=== PATIENT | female | born 1935 | race Caucasian/White ===

== ENCOUNTER → 2016-12-05 | Outpatient (CLI) | payer BC ==
[~2016-12-05] MED LIST: NAPR1TAB9 PO; NYSTOIN TOP; TERB1CRE TOP
--- NOTE | 2016-12-05 16:06 | MAMMOGRAPHY REPORT ---
BILATERAL DIGITAL SCREENING MAMMOGRAM WITH CAD: 12/05/2016 CLINICAL HISTORY: Routine screening. Patient has no complaints. TECHNIQUE: Bilateral CC and MLO views were obtained. Current study was also evaluated with a Comput er Aided Detection (CAD) system. COMPARISON: Comparison is made to exams dated: 12/02/2015 mammogram, 12/01/2014 mammogram, 11/28/2013 carlin mogram, 11/21/2012 mammogram, 11/21/2011 mammogram, and 11/17/2010 mammogram - [facility] nter. BREAST COMPOSITION: The tissue of both breasts is almost entirely fatty. FINDINGS: There is stable asymmetry in the subareolar left breast. Diffuse bilateral benign rim harshil cifications. No new suspicious mass, architectural distortion or cluster of microcalcifications is seen. IMPRESSION: ACR BI-RADS CATEGORY 1: NEGATIVE There is no mammographic evidence of malignancy. A 1 year screening mammogram is recommended. The p atient will receive written notification of the results. Approximately 10% of breast cancers are not detected with mammography. A negative mammographic repor t should not delay biopsy if a clinically suggestive mass is present. Nilsa Vu M.D. ay/:12/05/2016 15:18:55 Film Cleaner: Lisa Gautam M, [facility] letter sent: Normal 1/2 BI-RADS Code: ACR BI-RADS Category 1: Negative
== END | disposition home or self-care (01) ==
LOC: C.MAMM 08:11
PROVIDERS: ATTEND Internal Medicine
DX: Z12.31 Encounter for screening mammogram for malignant neoplasm of breast (principal)

== ENCOUNTER → 2016-12-21 | Outpatient (CLI) | payer BC ==
[2016-12-21 12:13] LABS: BASO % 0.6 %; BASO ABS # 0.04 K/uL (0-0.2); COMPLETE YES; EOS % 2.9 %; HEMATOCRIT 44.4 % (37-47); IG% 0.3 %; LYMPH % 17.1 %; LYMPH ABS # 1.13 K/uL (1.2-3.4); MEAN CELL VOLUME 93.9 fL (80-100); MEAN PLATELET VOLUME 11.2 fL (7.4-10.4); MONO % 7.7 %; NEUT % 71.4 %; PLATELET COUNT 239 K/uL (130-400); RED BLOOD COUNT 4.73 M/uL (4.2-5.4); WHITE BLOOD COUNT 6.61 K/uL (4.8-10.8)
[2016-12-21 12:26] LABS: ALT/SGPT 37 U/L (12-78); AST/SGOT 25 U/L (15-37); BLOOD UREA NITROGEN 16 mg/dl (7-18); BUN/CREATININE RATIO 21.3 (10-20); CARBON DIOXIDE 27 mmol/L (21-32); CHLORIDE 108 mmol/L (98-107); CHOLESTEROL 175 mg/dl (0-200); CREATININE 0.77 mg/dl (0.60-1.20); GLUCOSE 95 mg/dl (70-99); POTASSIUM 3.9 mmol/L (3.5-5.1); SODIUM 142 mmol/L (136-145); TRIGLYCERIDES 84 mg/dl (0-150); VERY LOW DENSITY LIPOPROT CALC 17 mg/dl
[2016-12-21 12:27] LABS: ALB/GLOB RATIO 0.9 (0.9-2); ALKALINE PHOSPHATASE 106 U/L (45-117); CHOLESTEROL/HDL RATIO 3.1; HDL CHOLESTEROL 57 mg/dl; LDL CHOLESTEROL CALCULATED 101 mg/dl
[2016-12-21 12:30] LABS: ESTIMATED AVERAGE GLUCOSE 123 mg/dl; HA1C FLAG Normal (Normal)
== END | disposition home or self-care (01) ==
LOC: C.LABBFT 10:22
PROVIDERS: ATTEND Internal Medicine
DX: Z00.00 Encounter for general adult medical examination without abnormal findings (principal); E55.9 Vitamin D deficiency, unspecified; E78.5 Hyperlipidemia, unspecified; R73.01 Impaired fasting glucose

== ENCOUNTER 2017-07-28 18:12 | Observation (INO) | payer BC ==
[~2017-07-28] VITALS: Ht 165.1 cm; Wt 77.6 kg
[2017-07-28] MEDS ORDERED: DEXAMETHASONE INJ 10 MG in SYRINGE 0 ML IV STA (18:27)
[2017-07-28] MEDS ORDERED: SODIUM CHLORIDE 0.9% 500ML 500 ML IV STA (18:27)
--- NOTE | 2017-07-28 18:32 | EMERGENCY ROOM VISIT NOTE ---
History Report prepared by Grupo: Franco Cullen Under the Supervision of: Dr. Leonard Roth M.D. First contact with patient: 18:17 Chief Complaint: FALL Stated Complaint: FELL AT HOME TWICE History of Present Illness The patient is a 81 year old female who presents to the Emergency Room with complaints of a fall that occurred prior to arrival. Her sons, who are present in the ED with her, state they found her sitting up next to her chair when they arrived. Per her sons, they state the same episode occurred two days ago. During the episode 2 days ago, she fell in the morning and was unable to get help for 8 hours. She describes both falls as falling off a chair because the cushion had slid off. There were no witnesses to either fall. Patient has associated symptoms of a sore throat, cough, nasal congestion, and a fever. She denies any shortness of breath, painful urination, back pain, neck pain, and abdominal pain. She adds that during the fall she did not hit her head. Her sons state that her baseline is not normally this weak. In addition, they state that she gave blood 3 days ago. She states she does not use a nebulizer or oxygen at home. She adds that she lives at home by herself. Source of History: patient, family Onset: Prior to arrival Position: other (Global) Associated Symptoms: No neck pain, No abdominal pain, No back pain Note: Patient has a sore throat, cough, nasal congestion, and a fever. She denies painful urination. Review of Systems See HPI for pertinent positives and negatives. A total of ten systems were reviewed and were otherwise negative. Past Medical & Surgical Medical Problems: (1) Acute bronchitis (2) section (3) Cholecystectomy (4) Fall (5) Kidney stone (6) UTI (urinary tract infection) (7) Weakness Family History No pertinent family history. Social History Smoking Status: Never Smoker Alcohol Use: none Marital Status: Occupation Status: retired Current/Historical Medications No Active Prescriptions or Reported Meds Allergies Coded Allergies: No Known Allergies (Unverified , 07/28/17) Physical Exam Vital Signs Date Time Temp Pulse Resp B/P (MAP) Pulse Ox O2 Delivery O2 Flow Rate FiO2 07/28/17 23:03 77 07/28/17 21:29 76 18 122/64 97 Room Air 07/28/17 20:27 7 18 133/63 98 07/28/17 19:18 75 07/28/17 19:16 105 20 134/74 99 Room Air 07/28/17 18:13 37.0 78 18 135/71 95 Physical Exam GENERAL: Awake, alert, fatigue-appearing, in no distress HENT: Dry cracked mucous membranes. Normocephalic, atraumatic. Oropharynx otherwise unremarkable. EYES: Normal conjunctiva. Sclera non-icteric. NECK: Supple. No nuchal rigidity. FROM. No JVD. RESPIRATORY: Scattered wheezes and rhonchi. CARDIAC: Regular rate, normal rhythm. Extremities warm and well perfused. Pulses equal. ABDOMEN: Soft, non-distended. No tenderness to palpation. No rebound or guarding. No masses. RECTAL: Deferred. MUSCULOSKELETAL: Chest examination reveals no tenderness. The back is symmetrical on inspection without obvious abnormality. There is no CVA tenderness to palpation. No joint edema. LOWER EXTREMITIES: Calves are equal size bilaterally and non-tender. No edema. No discoloration. NEURO: 4/4 strength in all extremities. Normal sensorium. No sensory or motor deficits noted. SKIN: No rash or jaundice noted. Medical Decision & Procedures ER Provider Diagnostic Interpretation: Radiology results as stated below per my review and radiologist interpretation: HEAD WITHOUT CONTRAST (CT) CT DOSE: 1003.45 mGycm HISTORY: Trauma. Mental status change. LUCERO fall TECHNIQUE: Multiaxial CT images of the head were performed without the use of intravenous contrast. A dose lowering technique was utilized adhering to the principles of ALARA. Comparison: 10/16/2012 Findings: Trace fluid within the right maxillary sinus. Sinuses otherwise are clear. Mastoids are clear. Moderate sclerosis moderate right mastoid air cells considered chronic. No acute posttraumatic bony abnormality. Findings of moderate atrophy involving the cerebellar as well as cerebral hemispheres. Mild compensatory ventricular prominence. No acute intracranial hemorrhage. The calvarium and skull base are intact. The ventricles and sulci are within normal limits. There is no mass, hematoma, midline shift, or acute infarct. Impression: Chronic and age-related change. No acute process. The above report was generated using voice recognition software. It may contain grammatical, syntax or spelling errors. Electronically signed by: Red Diallo M.D. 07/28/2017 7:42 PM PELVIS 1 OR 2 VIEW ROUTINE CLINICAL HISTORY: pain fall trauma COMPARISON: None. DISCUSSION: The bones and joint spaces appear intact. There is no evidence of fracture, dislocation or bony disease. There is no evidence for soft tissue swelling. IMPRESSION: Negative study. The above report was generated using voice recognition software. It may contain grammatical, syntax or spelling errors. Electronically signed by: Red Diallo M.D. 07/28/2017 6:48 PM CHEST ONE VIEW PORTABLE CLINICAL HISTORY: sob dyspnea COMPARISON STUDY: 10/16/2012 FINDINGS: The bones soft tissues and hemidiaphragms are normal. The cardiomediastinal silhouette is normal. The lungs are clear. The pulmonary vasculature is normal. IMPRESSION: Negative chest. The above report was generated using voice recognition software. It may contain grammatical, syntax or spelling errors. Electronically signed by: Red Diallo M.D. 07/28/2017 6:47 PM Laboratory Results 07/28/17 18:50 Red Blood Count 4.14, Mean Corpuscular Volume 92.5, Mean Corpuscular Hemoglobin 30.7, Mean Corpuscular Hemoglobin Concent 33.2, Mean Platelet Volume 10.6, Neutrophils (%) (Auto) 74.5, Lymphocytes (%) (Auto) 12.7, Monocytes (%) (Auto) 10.8, Eosinophils (%) (Auto) 1.6, Basophils (%) (Auto) 0.2, Neutrophils # (Auto ) 3.65, Lymphocytes # (Auto) 0.62, Monocytes # (Auto) 0.53, Eosinophils # (Auto ) 0.08, Basophils # (Auto) 0.01 07/28/17 18:50 Test 07/28/17 18:50 07/28/17 19:00 White Blood Count 4.90 K/uL (4.8-10.8) Red Blood Count 4.14 M/uL (4.2-5.4) Hemoglobin 12.7 g/dL (12.0-16.0) Hematocrit 38.3 % (37-47) Mean Corpuscular Volume 92.5 fL (80-100) Mean Corpuscular Hemoglobin 30.7 pg (25-34) Mean Corpuscular Hemoglobin Concent 33.2 g/dl (32-36) Platelet Count 166 K/uL (130-400) Mean Platelet Volume 10.6 fL (7.4-10.4) Neutrophils (%) (Auto) 74.5 % Lymphocytes (%) (Auto) 12.7 % Monocytes (%) (Auto) 10.8 % Eosinophils (%) (Auto) 1.6 % Basophils (%) (Auto) 0.2 % Neutrophils # (Auto) 3.65 K/uL (1.4-6.5) Lymphocytes # (Auto) 0.62 K/uL (1.2-3.4) Monocytes # (Auto) 0.53 K/uL (0.11-0.59) Eosinophils # (Auto) 0.08 K/uL (0-0.5) Basophils # (Auto) 0.01 K/uL (0-0.2) RDW Standard Deviation 45.8 fL (36.4-46.3) RDW Coefficient of Variation 13.5 % (11.5-14.5) Immature Granulocyte % (Auto) 0.2 % Immature Granulocyte # (Auto) 0.01 K/uL (0.00-0.02) Anion Gap 4.0 mmol/L (3-11) Est Creatinine Clear Calc Drug Dose 52.5 ml/min Estimated GFR () 80.7 Estimated GFR (Non- 69.6 BUN/Creatinine Ratio 19.8 (10-20) Calcium Level 8.6 mg/dl (8.5-10.1) Phosphorus Level 2.6 mg/dl (2.5-4.9) Magnesium Level 2.1 mg/dl (1.8-2.4) Total Bilirubin 0.4 mg/dl (0.2-1) Direct Bilirubin 0.1 mg/dl (0-0.2) Aspartate Amino Transf (AST/SGOT) 83 U/L (15-37) Alanine Aminotransferase (ALT/SGPT) 49 U/L (12-78) Alkaline Phosphatase 73 U/L (45-117) Troponin I < 0.015 ng/ml (0-0.045) Pro-B-Type Natriuretic Peptide 130 pg/ml (0-1800) Total Protein 6.6 gm/dl (6.4-8.2) Albumin 3.1 gm/dl (3.4-5.0) Lipase 135 U/L (73-393) Urine Color DK YELLOW Urine Appearance CLEAR (CLEAR) Urine pH 5.0 (4.5-7.5) Urine Specific [place] 1.030 (1.000-1.030) Urine Protein NEG (NEG) Urine Glucose (UA) TRACE (NEG) Urine Ketones TRACE (NEG) Urine Occult Blood TRACE (NEG) Urine Nitrite POS (NEG) Urine Bilirubin NEG (NEG) Urine Urobilinogen NEG (NEG) Urine Leukocyte Esterase TRACE (NEG) Urine WBC (Auto) 5-10 /hpf (0-5) Urine RBC (Auto) 0-4 /hpf (0-4) Urine Hyaline Casts (Auto) 1-5 /lpf (0-5) Urine Epithelial Cells (Auto) >30 /lpf (0-5) Urine Bacteria (Auto) 4+ (NEG) Urine Renal Epithelial Cells 5-10 /lpf (0-5) Urine Crystals CALCIUM OXALATE (NONE Urine Pathogenic Casts /lpf (0) Laboratory results reviewed by me Medications Administered Medications (Trade) Dose Ordered Sig/Haja Route Start Time Stop Time Status Last Admin Dose Admin Sodium Chloride 500 ml @ 999 mls/hr Q31M STAT IV 07/28/17 18:27 07/28/17 18:57 DC 07/28/17 19:04 999 MLS/HR Dexamethasone Sodium Phosphate (Dexamethasone Inj Pf) 10 mg STK-MED ONCE .ROUTE 07/28/17 19:01 07/28/17 19:02 DC 07/28/17 19:04 10 MG Sodium Chloride 1,000 ml @ 999 mls/hr Q1H1M STAT IV 07/28/17 20:02 07/28/17 21:02 DC 07/28/17 20:21 999 MLS/HR Levofloxacin (Levaquin / D5W) 750 mg NOW STAT IV 07/28/17 20:02 07/28/17 20:05 DC 07/28/17 20:20 750 MG Albuterol/ Ipratropium (Duoneb) 3 ml NOW STAT INH 07/28/17 20:02 07/28/17 20:05 DC 07/28/17 20:20 3 ML ECG Indication: other (Fall) Rate (beats per minute): 73 Rhythm: normal sinus Findings: no acute ischemic change, other (Normal axis. ) Change: no significant change ED Course 1817: The patient was evaluated in room C10. A complete history and physical exam was performed. 2200: Upon reexamination, the patient will be further evaluated. I discussed the test results and treatment plan with her. The patient will be evaluated for further management. Medical Decision I reviewed the patient's past medical history, medications, and the nursing notes as described above. Differential Diagnosis: Pneumonia, Bronchitis, UTI, Dehydration, Electrolyte abnormalities, ICH. The patient is an 81 y/o woman who presents to the ED with worsening generalized weakness for past 2 days with associated episodes of sliding out of her chair unable to get up per HPI. Arrives today after second episode of being found down. On arrival patient is severely fatigued required 3 person assist to pivot from wheelchair to stretcher. In NAD, AFVSS. CT head negative. CXR and pelvic XR unremarkable. UA positive for UTI. Labs otherwise unremarkable. Give patient's profound weakness in setting of UTI will admit. Case d/w [facility] hospitalist, who will admit the patient for further management. Medication Reconcilliation Current Medication List: was personally reviewed by me Blood Pressure Screening Patient's blood pressure: Normal blood pressure Blood pressure disposition: Did not require urgent referral Impression Primary Impression: UTI (urinary tract infection) Additional Impressions: Dehydration Generalized weakness Scribe Attestation The scribe's documentation has been prepared under my direction and personally reviewed by me in its entirety. I confirm that the note above accurately reflects all work, treatment, procedures, and medical decision making performed by me. Departure Information Dispostion Being Evaluated By Hospitalist Prescriptions No Active Prescriptions or Reported Meds Referrals Krysta Perez M.D. (PCP) Forms HOME CARE DOCUMENTATION FORM, IMPORTANT VISIT INFORMATION Patient Instructions My [facility] Problem Qualifiers
--- NOTE | 2017-07-28 18:49 | DIAGNOSTIC IMAGING REPORT ---
PELVIS 1 OR 2 VIEW ROUTINE CLINICAL HISTORY: pain fall trauma COMPARISON: None. DISCUSSION: The bones and joint spaces appear intact. There is no evidence of fracture, dislocation or bony disease. There is no evidence for soft tissue swelling. IMPRESSION: Negative study. The above report was generated using voice recognition software. It may contain grammatical, syntax or spelling errors. Electronically signed by: Red Diallo M.D. 07/28/2017 6:48 PM Dictated Date/Time: 07/28/2017 6:48 PM
--- NOTE | 2017-07-28 18:49 | DIAGNOSTIC IMAGING REPORT ---
CHEST ONE VIEW PORTABLE CLINICAL HISTORY: sob dyspnea COMPARISON STUDY: 10/16/2012 FINDINGS: The bones soft tissues and hemidiaphragms are normal. The cardiomediastinal silhouette is normal. The lungs are clear. The pulmonary vasculature is normal. IMPRESSION: Negative chest. The above report was generated using voice recognition software. It may contain grammatical, syntax or spelling errors. Electronically signed by: Red Diallo M.D. 07/28/2017 6:47 PM Dictated Date/Time: 07/28/2017 6:47 PM
[2017-07-28] MEDS ORDERED: DEXAMETHASONE **PF** INJ 10 MG/ML VIAL ONE (19:01)
[2017-07-28 19:03] LABS: BASO % 0.2 %; BASO ABS # 0.01 K/uL (0-0.2); EOS % 1.6 %; EOS ABS # 0.08 K/uL (0-0.5); HEMATOCRIT 38.3 % (37-47); HEMOGLOBIN 12.7 g/dL (12.0-16.0); IG# 0.01 K/uL (0.00-0.02); LYMPH % 12.7 %; LYMPH ABS # 0.62 K/uL (1.2-3.4); MEAN CELL VOLUME 92.5 fL (80-100); MEAN CORPUSCULAR HEMOGLOBIN 30.7 pg (25-34); MEAN CORPUSCULAR HGB CONC 33.2 g/dl (32-36); MEAN PLATELET VOLUME 10.6 fL (7.4-10.4); MONO % 10.8 %; MONO ABS # 0.53 K/uL (0.11-0.59); NEUT % 74.5 %; NEUT ABS # 3.65 K/uL (1.4-6.5); PLATELET COUNT 166 K/uL (130-400); RED CELL DISTRIBUTION WIDTH CV 13.5 % (11.5-14.5); RED CELL DISTRIBUTION WIDTH SD 45.8 fL (36.4-46.3)
[2017-07-28 19:24] LABS: ALBUMIN 3.1 gm/dl (3.4-5.0); ALT/SGPT 49 U/L (12-78); AST/SGOT 83 U/L (15-37); BLOOD UREA NITROGEN 16 mg/dl (7-18); CALCIUM 8.6 mg/dl (8.5-10.1); CARBON DIOXIDE 28 mmol/L (21-32); GLUCOSE 115 mg/dl (70-99); LIPASE 135 U/L (73-393); POTASSIUM 3.7 mmol/L (3.5-5.1); SODIUM 139 mmol/L (136-145)
[2017-07-28 19:27] LABS: ALKALINE PHOSPHATASE 73 U/L (45-117); PHOSPHORUS 2.6 mg/dl (2.5-4.9); TOTAL PROTEIN 6.6 gm/dl (6.4-8.2)
--- NOTE | 2017-07-28 19:43 | DIAGNOSTIC IMAGING REPORT ---
HEAD WITHOUT CONTRAST (CT) CT DOSE: 1003.45 mGycm HISTORY: Trauma. Mental status change. LUCERO fall TECHNIQUE: Multiaxial CT images of the head were performed without the use of intravenous contrast. A dose lowering technique was utilized adhering to the principles of ALARA. Comparison: 10/16/2012 Findings: Trace fluid within the right maxillary sinus. Sinuses otherwise are clear. Mastoids are clear. Moderate sclerosis moderate right mastoid air cells considered chronic. No acute posttraumatic bony abnormality. Findings of moderate atrophy involving the cerebellar as well as cerebral hemispheres. Mild compensatory ventricular prominence. No acute intracranial hemorrhage. The calvarium and skull base are intact. The ventricles and sulci are within normal limits. There is no mass, hematoma, midline shift, or acute infarct. Impression: Chronic and age-related change. No acute process. The above report was generated using voice recognition software. It may contain grammatical, syntax or spelling errors. Electronically signed by: Red Diallo M.D. 07/28/2017 7:42 PM Dictated Date/Time: 07/28/2017 7:41 PM
[2017-07-28] MEDS ORDERED: ALBUT/IPRATROP 3MG/0.5MG NEB 3 ML VIAL INH STA (20:02)
[2017-07-28] MEDS ORDERED: LEVAQUIN 750MG / 150ML D5W IV STA (20:02)
[2017-07-28] MEDS ORDERED: SODIUM CHLORIDE 0.9% 1000ML 1,000 ML IV STA (20:02)
[2017-07-28] MEDS ORDERED: MAGNESIUM HYDROXIDE SUSP 30 ML UDC PO PRN (23:15)
[2017-07-28] MEDS ORDERED: ONDANSETRON INJ 2 MG/ML 2 ML VIAL IV PRN (23:15)
[2017-07-28] MEDS ORDERED: POLYETHYLENE (MIRALAX) 17 GM PACK PO PRN (23:15)
[2017-07-28] MEDS ORDERED: ALUMINUM/MAGNESIUM/SIMETH (MAALOX MAX) 30 ML UDC PO PRN (23:15)
[2017-07-28] MEDS ORDERED: ACETAMINOPHEN 325 MG TAB PO PRN (23:15)
--- NOTE | 2017-07-28 23:43 | History and Physical ---
History & Physical Date & Time of Service: Jul 28, 2017 at 23:43 Chief Complaint: Fell At Home Twice Primary Care Physician: Krysta Perez M.D. History of Present Illness Source: patient, hospital records 81 yo F A few dayago felt progressively weakness, while using the bathroom patient slid off commode. , no head injury.slept all night in bed. this afternoon , slid off couch, no known injuries.called Dr. Perez (PCP_ talked to PA on Monday) advised to come in to day. lives at home by herself. She also reports a few days of dry cough , sore throat, runny nose, nasal congestion, makeda earache. has been taking advil. She reports subjective fever,c hills, no SOB, Chest pain, n/ v abdominal pain, diarrhea, no urinary symptoms. In ED, patient came in significantly fatigued. She arrived afebrile, normotensive. Scattered wheeze and rhonchi on exam. Ct Head was negative. CXR , pelvic XR unremarkable. UA was positive for UTI. She was given 1500 cc NS, Dexamethasone 10 mg, placed on Levaquin. and DuoNeb. Past Medical/Surgical History Medical Problems: (1) section Status: Resolved (2) Cholecystectomy Status: Resolved (3) Kidney stone Status: Resolved Family History no relevant family hx Social History Smoking Status: Never Smoker Alcohol Use: none Drug Use: none Marital Status: Housing status: lives with family Occupational Status: retired Immunizations History of Influenza Vaccine: Unknown History of Tetanus Vaccine?: Unknown History of Pneumococcal: Unknown History of Hepatitis B Vaccine: Unknown Multi-Drug Resistant Organisms History of MDRO: No Allergies Coded Allergies: No Known Allergies (Unverified , 07/28/17) Home Medications No Active Prescriptions or Reported Meds Review of Systems Constitutional: No fever, No chills Respiratory: + cough, + wheezing, No shortness of breath Cardiovascular: No chest pain, No palpitations Abdomen: No pain Genitourinary - Female: + urinary frequency, + urinary urgency, + urinary incontinence Physical Exam Vital Signs Date Time Temp Pulse Resp B/P (MAP) Pulse Ox O2 Delivery O2 Flow Rate FiO2 07/28/17 23:23 74 20 110/56 94 Room Air 07/28/17 23:03 77 07/28/17 21:29 76 18 122/64 97 Room Air 07/28/17 20:27 7 18 133/63 98 07/28/17 19:18 75 07/28/17 19:16 105 20 134/74 99 Room Air 07/28/17 18:13 37.0 78 18 135/71 95 Diagnostics Laboratory Results Results Past 24 Hours Test 07/28/17 18:50 07/28/17 19:00 Range/Units White Blood Count 4.90 4.8-10.8 K/uL Red Blood Count 4.14 4.2-5.4 M/uL Hemoglobin 12.7 12.0-16.0 g/dL Hematocrit 38.3 37-47 % Mean Corpuscular Volume 92.5 80-100 fL Mean Corpuscular Hemoglobin 30.7 25-34 pg Mean Corpuscular Hemoglobin Concent 33.2 32-36 g/dl Platelet Count 166 130-400 K/uL Mean Platelet Volume 10.6 7.4-10.4 fL Neutrophils (%) (Auto) 74.5 % Lymphocytes (%) (Auto) 12.7 % Monocytes (%) (Auto) 10.8 % Eosinophils (%) (Auto) 1.6 % Basophils (%) (Auto) 0.2 % Neutrophils # (Auto) 3.65 1.4-6.5 K/uL Lymphocytes # (Auto) 0.62 1.2-3.4 K/uL Monocytes # (Auto) 0.53 0.11-0.59 K/uL Eosinophils # (Auto) 0.08 0-0.5 K/uL Basophils # (Auto) 0.01 0-0.2 K/uL RDW Standard Deviation 45.8 36.4-46.3 fL RDW Coefficient of Variation 13.5 11.5-14.5 % Immature Granulocyte % (Auto) 0.2 % Immature Granulocyte # (Auto) 0.01 0.00-0.02 K/uL Sodium Level 139 136-145 mmol/L Potassium Level 3.7 3.5-5.1 mmol/L Chloride Level 107 98-107 mmol/L Carbon Dioxide Level 28 21-32 mmol/L Anion Gap 4.0 3-11 mmol/L Blood Urea Nitrogen 16 7-18 mg/dl Creatinine 0.80 0.60-1.20 mg/dl Est Creatinine Clear Calc Drug Dose 52.5 ml/min Estimated GFR () 80.7 Estimated GFR (Non- 69.6 BUN/Creatinine Ratio 19.8 10-20 Random Glucose 115 70-99 mg/dl Calcium Level 8.6 8.5-10.1 mg/dl Phosphorus Level 2.6 2.5-4.9 mg/dl Magnesium Level 2.1 1.8-2.4 mg/dl Total Bilirubin 0.4 0.2-1 mg/dl Direct Bilirubin 0.1 0-0.2 mg/dl Aspartate Amino Transf (AST/SGOT) 83 15-37 U/L Alanine Aminotransferase (ALT/SGPT) 49 12-78 U/L Alkaline Phosphatase 73 45-117 U/L Troponin I < 0.015 0-0.045 ng/ml Pro-B-Type Natriuretic Peptide 130 0-1800 pg/ml Total Protein 6.6 6.4-8.2 gm/dl Albumin 3.1 3.4-5.0 gm/dl Lipase 135 73-393 U/L Urine Color DK YELLOW Urine Appearance CLEAR CLEAR Urine pH 5.0 4.5-7.5 Urine Specific [place] 1.030 1.000-1.030 Urine Protein NEG NEG Urine Glucose (UA) TRACE NEG Urine Ketones TRACE NEG Urine Occult Blood TRACE NEG Urine Nitrite POS NEG Urine Bilirubin NEG NEG Urine Urobilinogen NEG NEG Urine Leukocyte Esterase TRACE NEG Urine WBC (Auto) 5-10 0-5 /hpf Urine RBC (Auto) 0-4 0-4 /hpf Urine Hyaline Casts (Auto) 1-5 0-5 /lpf Urine Epithelial Cells (Auto) >30 0-5 /lpf Urine Bacteria (Auto) 4+ NEG Urine Renal Epithelial Cells 5-10 0-5 /lpf Urine Crystals CALCIUM OXALATE NONE PRSENT Urine Pathogenic Casts 0 /lpf Microbiology Results 07/28/17 Urine Culture, Received Pending Diagnostic Radiology ] CHEST ONE VIEW PORTABLE CLINICAL HISTORY: sob dyspnea COMPARISON STUDY: 10/16/2012 FINDINGS: The bones soft tissues and hemidiaphragms are normal. The cardiomediastinal silhouette is normal. The lungs are clear. The pulmonary vasculature is normal. IMPRESSION: Negative chest. ] PELVIS 1 OR 2 VIEW ROUTINE CLINICAL HISTORY: pain fall trauma COMPARISON: None. DISCUSSION: The bones and joint spaces appear intact. There is no evidence of fracture, dislocation or bony disease. There is no evidence for soft tissue swelling. IMPRESSION: Negative study. HEAD WITHOUT CONTRAST (CT) CT DOSE: 1003.45 mGycm HISTORY: Trauma. Mental status change. LUCERO fall TECHNIQUE: Multiaxial CT images of the head were performed without the use of intravenous contrast. A dose lowering technique was utilized adhering to the principles of ALARA. Comparison: 10/16/2012 Findings: Trace fluid within the right maxillary sinus. Sinuses otherwise are clear. Mastoids are clear. Moderate sclerosis moderate right mastoid air cells considered chronic. No acute posttraumatic bony abnormality. Findings of moderate atrophy involving the cerebellar as well as cerebral hemispheres. Mild compensatory ventricular prominence. No acute intracranial hemorrhage. The calvarium and skull base are intact. The ventricles and sulci are within normal limits. There is no mass, hematoma, midline shift, or acute infarct. Impression: Chronic and age-related change. No acute process. Impression Assessment and Plan 81 y o F presenting w/ progressive generalized weakness and Fall x2 found to have UTI and Bronchitis , currently on Levaquin, Rocephin Weakness , H/o Fall - likely secondary to dehydration in the setting of UTI/ Bronchitis -no reported injuries -Negative CXR, negative CT head, neg, Pelvic Xray - IV NS maintenance fluids 100 mls/hr UTI - UA positive - Start Rocephin, Levaquin - F/u Urine cx Bronchitis - Duoneb - Start Rocephin, Levaquin as above DVT Prophylaxis SCD Attending addendum: I have physically seen this patient, have supervised the medical residents activities, and agree with the H&P unless as otherwise noted. Assessment and Plan: Progressive generalized weakness, status post fall 2/UTI/bronchitis/dehydration -- Admitted to medical surgical floor Normal saline at 100 ML's per hour Ceftriaxone 1 g IV daily Levofloxacin 500 mg IV every 24 hours Follow urine culture and sensitivity report Duonebs every 4 hours while awake and every 2 hours when necessary. Gen. deconditioning-- Consult PT/OT/social service technician Level of Care Med/Surg Advanced Directives Existing Advance Directive: No Existing Living Will: No Existing Power of Army Manager: No Resuscitation Status FULL RESUSCITATION VTE Prophylaxis VTE Risk Assessment Done? Y/N: Yes Risk Level: Low Given or contraindicated: SCD's Resident Tracking Resident Involvement: Resident Care Provided Care Provided: Adult Hospital Medicine
[2017-07-29] VITALS (9 sets, daily range): BP systolic 111–130; BP diastolic 63–75; PULSE 67–73; TEMP 36.6–36.9; O2SAT 93–97; Ht 165.1 cm; Wt 77.6 kg
[2017-07-29] MEDS: SODIUM CHLORIDE 0.9% 1000ML 1,000 ML IV SCH ×3 (00:42→20:14)
[2017-07-29] MEDS: CEFTRIAXONE SOD INJ 1 GM in DEXTROSE 5% ADD-VANTAGE 50ML 50 ML IV SCH (00:43)
[2017-07-29] MEDS ORDERED: IV FLUIDS COMPLETED PRN (00:45)
[2017-07-29 07:26] LABS: HEMOGLOBIN 11.6 g/dL (12.0-16.0); IG# 0.01 K/uL (0.00-0.02); LYMPH % 12.1 %; LYMPH ABS # 0.41 K/uL (1.2-3.4); MEAN CELL VOLUME 91.4 fL (80-100); MEAN CORPUSCULAR HEMOGLOBIN 30.3 pg (25-34); MEAN CORPUSCULAR HGB CONC 33.1 g/dl (32-36); MEAN PLATELET VOLUME 10.6 fL (7.4-10.4); MONO % 3.2 %; MONO ABS # 0.11 K/uL (0.11-0.59); NEUT % 84.4 %; NEUT ABS # 2.87 K/uL (1.4-6.5); PLATELET COUNT 153 K/uL (130-400); RED CELL DISTRIBUTION WIDTH CV 13.3 % (11.5-14.5); RED CELL DISTRIBUTION WIDTH SD 44.1 fL (36.4-46.3)
[2017-07-29] MEDS: ALBUT/IPRATROP 3MG/0.5MG NEB 3 ML VIAL INH SCH ×4 (07:28→19:37)
[2017-07-29 07:55] LABS: CALCIUM 7.8 mg/dl (8.5-10.1); CREATININE 0.52 mg/dl (0.60-1.20); POTASSIUM 4.1 mmol/L (3.5-5.1)
[2017-07-29] MEDS ORDERED: COUGH DROP (SUGAR FREE) LOZ 24 LOZ/1 BOX ONE (08:04)
--- NOTE | 2017-07-29 10:20 | Family Medicine Progress Note ---
Progress Note Date of Service Jul 29, 2017. Subjective Pt evaluation today including: conversation w/ patient, physical exam, chart review, lab review Pain: denies any pain PO Intake: good Voiding: no voiding problems 81-year-old female presented to the ER after she had sustained a fall after she slid off a cushion on her couch. She denies any episodes of dizziness, chest pain, palpitations prior to fall. Denies any head injury after the fall. Complains of generalized weakness and fatigue which had increased over the last few weeks. Also complains of having congestion and rhinorrhea and other upper respiratory tract symptoms. Denies any fevers or chills, shortness of breath or wheezing. Denies any abdominal pain, nausea, vomiting but states that she has urinary incontinence and some dysuria. Constitutional: No fever, No chills Eyes: No worsening of vision ENT: No hearing loss Respiratory: No cough, No sputum Cardiovascular: No chest pain Abdomen: No pain, No nausea, No vomiting Musculoskeletal: No joint pain Female : No dysuria, No urinary frequency Neurologic: No memory loss Psychiatric: No depression symptoms Medications Current Inpatient Medications Medications (Trade) Dose Ordered Sig/Haja Route Start Time Stop Time Status Last Admin Dose Admin Acetaminophen (Tylenol Tab) 650 mg Q4H PRN PO 07/28/17 23:15 08/27/17 23:14 Al Hydrox/Mg Hydrox/Simethicone (Maalox Max Susp) 15 ml Q4H PRN PO 07/28/17 23:15 08/27/17 23:14 Magnesium Hydroxide (Milk Of Magnesia Susp) 30 ml Q6H PRN PO 07/28/17 23:15 08/27/17 23:14 Polyethylene (Miralax Powder Packet) 17 gm DAILY PRN PO 07/28/17 23:15 08/27/17 23:14 Ondansetron HCl (Zofran Inj) 4 mg Q6H PRN IV 07/28/17 23:15 08/27/17 23:14 Albuterol/ Ipratropium (Duoneb) 3 ml QIDR INH 07/29/17 08:00 08/28/17 07:59 07/29/17 07:28 3 ML Sodium Chloride 1,000 ml @ 100 mls/hr Q10H IV 07/29/17 00:30 08/28/17 00:29 07/29/17 00:42 100 MLS/HR Levofloxacin 500 mg/Prmx 150 ml @ 100 mls/hr Q24H IV 07/29/17 20:00 08/03/17 21:29 Ceftriaxone Sodium 1 gm/ Dextrose 50 ml @ 100 mls/hr Q24H IV 07/29/17 00:00 08/03/17 00:00 07/29/17 00:43 100 MLS/HR Miscellaneous (Iv Fluids Completed) 1 ea PRN PRN N/A 07/29/17 00:45 07/29/18 00:44 Objective Vital Signs Date Time Temp Pulse Resp B/P (MAP) Pulse Ox O2 Delivery O2 Flow Rate FiO2 07/29/17 08:00 94 Room Air 07/29/17 07:28 68 18 94 Room Air 07/29/17 07:21 36.9 71 18 130/75 (93) 94 Room Air 07/29/17 00:00 36.6 72 18 120/75 Room Air 07/28/17 23:23 74 20 110/56 94 Room Air 07/28/17 23:03 77 07/28/17 21:29 76 18 122/64 97 Room Air 07/28/17 20:27 7 18 133/63 98 07/28/17 19:18 75 07/28/17 19:16 105 20 134/74 99 Room Air 07/28/17 18:13 37.0 78 18 135/71 95 Physical Exam General Appearance: WD/WN, no apparent distress Eyes: normal inspection ENT: hearing grossly normal Neck: supple Respiratory/Chest: chest non-tender, lungs clear, normal breath sounds, no respiratory distress, no accessory muscle use Cardiovascular: regular rate, rhythm Abdomen: normal bowel sounds, non tender, soft Extremities: no pedal edema Neurologic/Psychiatric: alert, normal mood/affect, oriented x 3 Laboratory Results 07/29/17 07:13 Red Blood Count 3.83, Mean Corpuscular Volume 91.4, Mean Corpuscular Hemoglobin 30.3, Mean Corpuscular Hemoglobin Concent 33.1, Mean Platelet Volume 10.6, Neutrophils (%) (Auto) 84.4, Lymphocytes (%) (Auto) 12.1, Monocytes (%) (Auto) 3.2, Eosinophils (%) (Auto) 0.0, Basophils (%) (Auto) 0.0, Neutrophils # (Auto) 2.87, Lymphocytes # (Auto) 0.41, Monocytes # (Auto) 0.11, Eosinophils # (Auto) 0.00, Basophils # (Auto) 0.00 07/29/17 07:13 Test 07/28/17 18:50 07/28/17 19:00 07/29/17 07:13 Phosphorus Level 2.6 mg/dl (2.5-4.9) Magnesium Level 2.1 mg/dl (1.8-2.4) Total Bilirubin 0.4 mg/dl (0.2-1) Direct Bilirubin 0.1 mg/dl (0-0.2) Aspartate Amino Transf (AST/SGOT) 83 U/L (15-37) Alanine Aminotransferase (ALT/SGPT) 49 U/L (12-78) Alkaline Phosphatase 73 U/L (45-117) Troponin I < 0.015 ng/ml (0-0.045) Pro-B-Type Natriuretic Peptide 130 pg/ml (0-1800) Total Protein 6.6 gm/dl (6.4-8.2) Albumin 3.1 gm/dl (3.4-5.0) Lipase 135 U/L (73-393) Urine Color DK YELLOW Urine Appearance CLEAR (CLEAR) Urine pH 5.0 (4.5-7.5) Urine Specific [place] 1.030 (1.000-1.030) Urine Protein NEG (NEG) Urine Glucose (UA) TRACE (NEG) Urine Ketones TRACE (NEG) Urine Occult Blood TRACE (NEG) Urine Nitrite POS (NEG) Urine Bilirubin NEG (NEG) Urine Urobilinogen NEG (NEG) Urine Leukocyte Esterase TRACE (NEG) Urine WBC (Auto) 5-10 /hpf (0-5) Urine RBC (Auto) 0-4 /hpf (0-4) Urine Hyaline Casts (Auto) 1-5 /lpf (0-5) Urine Epithelial Cells (Auto) >30 /lpf (0-5) Urine Bacteria (Auto) 4+ (NEG) Urine Renal Epithelial Cells 5-10 /lpf (0-5) Urine Crystals CALCIUM OXALATE (NONE Urine Pathogenic Casts /lpf (0) White Blood Count 3.40 K/uL (4.8-10.8) Red Blood Count 3.83 M/uL (4.2-5.4) Hemoglobin 11.6 g/dL (12.0-16.0) Hematocrit 35.0 % (37-47) Mean Corpuscular Volume 91.4 fL (80-100) Mean Corpuscular Hemoglobin 30.3 pg (25-34) Mean Corpuscular Hemoglobin Concent 33.1 g/dl (32-36) Platelet Count 153 K/uL (130-400) Mean Platelet Volume 10.6 fL (7.4-10.4) Neutrophils (%) (Auto) 84.4 % Lymphocytes (%) (Auto) 12.1 % Monocytes (%) (Auto) 3.2 % Eosinophils (%) (Auto) 0.0 % Basophils (%) (Auto) 0.0 % Neutrophils # (Auto) 2.87 K/uL (1.4-6.5) Lymphocytes # (Auto) 0.41 K/uL (1.2-3.4) Monocytes # (Auto) 0.11 K/uL (0.11-0.59) Eosinophils # (Auto) 0.00 K/uL (0-0.5) Basophils # (Auto) 0.00 K/uL (0-0.2) RDW Standard Deviation 44.1 fL (36.4-46.3) RDW Coefficient of Variation 13.3 % (11.5-14.5) Immature Granulocyte % (Auto) 0.3 % Immature Granulocyte # (Auto) 0.01 K/uL (0.00-0.02) Anion Gap 7.0 mmol/L (3-11) Est Creatinine Clear Calc Drug Dose 88.9 ml/min Estimated GFR () 104.6 Estimated GFR (Non- 90.2 BUN/Creatinine Ratio 25.6 (10-20) Calcium Level 7.8 mg/dl (8.5-10.1) Assessment and Plan 81-year-old female with generalized weakness presented to the ER after she sustained a mechanical fall. Fall: - Likely secondary to deconditioning/generalized weakness - Chest x-ray negative - Head CT negative for any acute changes, pelvic x-ray negative - PT/OT ordered UTI: - UA positive for small leuk esterase, blood and positive for nitrite and bacteria - Urine culture preliminary positive for Escherichia coli - Ceftriaxone IV DVT Prophylaxis SCD Full code Disposition: Currently in MedSurg, might require inpatient rehabilitation pending evaluation by PT Resident Physician Supervision Note: I interviewed and examined the patient. Discussed with Dr. Schultz and agree with findings and plan as documented in the note. Any exceptions or clarifications are listed here: None Documented By: Ray Mukherjee feeling a bit better worried about being home alone, willing to go to rehab initially notes that she [place] from [facility] but then after discusions about possibly rehabbing at [facility] if needed she notes tat she's allergic to cats and they have cats there. notes she'd be willing to go to [facility] vitals ntoed nad breathing unlabored no pallor or icterus UTI - likely cause of weakness. rocephin pending ID&S fall/weakness - likely to need rehab. PT/OT eval, soc services eval. sounds that she would prefer [facility] due to lack of cats as compared to [facility] which is across from her house. Resident Tracking Resident Involvement: Resident Care Provided Care Provided: Adult Hospital Medicine
[2017-07-29] MEDS ORDERED: LEVOFLOXACIN / D5W 500 MG in PREMIXED IN D5W 150 ML IV SCH (20:00)
[2017-07-30] VITALS (7 sets, daily range): BP systolic 154–179; BP diastolic 74–90; PULSE 61–81; TEMP 36.7–36.9; O2SAT 95–98
[2017-07-30] MEDS: CEFTRIAXONE SOD INJ 1 GM in DEXTROSE 5% ADD-VANTAGE 50ML 50 ML IV SCH ×2 (00:41→23:49)
[2017-07-30] MEDS: SODIUM CHLORIDE 0.9% 1000ML 1,000 ML IV SCH (06:21)
[2017-07-30] MEDS: ALBUT/IPRATROP 3MG/0.5MG NEB 3 ML VIAL INH SCH ×4 (07:06→20:03)
[2017-07-30] MEDS ORDERED: IBUPROFEN 200 MG TAB PO STA (07:33)
--- NOTE | 2017-07-30 12:33 | Family Medicine Progress Note ---
Progress Note Date of Service Jul 30, 2017. Subjective Pt evaluation today including: conversation w/ patient, physical exam, chart review, lab review Pain: denies pain PO Intake: good Voiding: incontinence 81-year-old female presented to the ER after she had sustained a fall after she slid off a cushion on her couch. She denies any episodes of dizziness, chest pain, palpitations prior to fall. Denies any head injury after the fall. Appears to be more confused today and states that she wants to go home to take care of some insurance issues as it is the end of the year. Complains of congestion and rhinorrhea. Denies any fevers or chills, shortness of breath or wheezing. Denies any abdominal pain, dysuria or frequency but has incontinence Constitutional: No fever, No chills Eyes: No worsening of vision ENT: + nasal symptoms (congestion), No hearing loss Respiratory: No cough, No sputum Cardiovascular: No chest pain Abdomen: No pain, No nausea, No vomiting, No diarrhea Musculoskeletal: No joint pain Female : + incontinence, No dysuria, No urinary frequency Neurologic: No memory loss Heme: No abnormal bleeding/bruising Medications Current Inpatient Medications Medications (Trade) Dose Ordered Sig/Haja Route Start Time Stop Time Status Last Admin Dose Admin Acetaminophen (Tylenol Tab) 650 mg Q4H PRN PO 07/28/17 23:15 08/27/17 23:14 Al Hydrox/Mg Hydrox/Simethicone (Maalox Max Susp) 15 ml Q4H PRN PO 07/28/17 23:15 08/27/17 23:14 Magnesium Hydroxide (Milk Of Magnesia Susp) 30 ml Q6H PRN PO 07/28/17 23:15 08/27/17 23:14 Polyethylene (Miralax Powder Packet) 17 gm DAILY PRN PO 07/28/17 23:15 08/27/17 23:14 Ondansetron HCl (Zofran Inj) 4 mg Q6H PRN IV 07/28/17 23:15 08/27/17 23:14 Albuterol/ Ipratropium (Duoneb) 3 ml QIDR INH 07/29/17 08:00 08/28/17 07:59 07/30/17 11:05 3 ML Sodium Chloride 1,000 ml @ 100 mls/hr Q10H IV 07/29/17 00:30 1/29/18 00:29 07/30/17 06:21 100 MLS/HR Ceftriaxone Sodium 1 gm/ Dextrose 50 ml @ 100 mls/hr Q24H IV 07/29/17 00:00 08/03/17 00:00 07/30/17 00:41 100 MLS/HR Miscellaneous (Iv Fluids Completed) 1 ea PRN PRN N/A 07/29/17 00:45 07/29/18 00:44 Objective Vital Signs Date Time Temp Pulse Resp B/P (MAP) Pulse Ox O2 Delivery O2 Flow Rate FiO2 07/30/17 11:05 61 16 98 Room Air 07/30/17 07:40 36.7 73 20 179/90 (119) 97 Room Air 07/30/17 07:35 Room Air 07/30/17 00:00 Room Air 07/29/17 23:18 36.6 73 18 121/63 (82) 95 Room Air 07/29/17 16:00 97 Room Air 07/29/17 15:23 67 16 97 Room Air 07/29/17 14:54 36.8 68 18 111/68 (82) 94 Physical Exam General Appearance: WD/WN, no apparent distress Eyes: normal inspection Neck: supple Respiratory/Chest: chest non-tender, lungs clear, normal breath sounds, no respiratory distress, no accessory muscle use, + pertinent finding (I Dr. Sauceda called [facility]) Abdomen: normal bowel sounds, soft Extremities: normal range of motion Neurologic/Psychiatric: alert, normal mood/affect, oriented x 3 Skin: normal color Assessment and Plan 81-year-old female with generalized weakness presented to the ER after she sustained a mechanical fall. Found to have a UTI growing pansensitive Escherichia coli. She appears to have waxing and waning episodes of confusion which could be likely secondary to being in the hospital Spoke to her son who is going to be coming over which might help with reorienting her. Fall: - Likely secondary to deconditioning/generalized weakness - Chest x-ray negative - Head CT negative for any acute changes, pelvic x-ray negative - PT recommended inpatient rehabilitation/SNF upon discharge UTI: - Urine culture positive for pansensitive Escherichia coli - Ceftriaxone IV daily -Continue IV hydration Confusion: - DVT Prophylaxis SCD Full code Disposition: [facility] Resident Tracking Resident Involvement: Resident Care Provided Care Provided: Adult [facility] Medicine
[2017-07-30] MEDS ORDERED: SODIUM CHLORIDE 0.65% NA SOLN 45 ML (OCEAN) PRN (13:00)
[2017-07-30] MEDS ORDERED: NURSING VERBAL MED ORDER ONE (15:45)
[2017-07-31] VITALS (7 sets, daily range): BP systolic 138–176; BP diastolic 85–107; PULSE 70–81; TEMP 37; O2SAT 93–100
[2017-07-31] MEDS: ALBUT/IPRATROP 3MG/0.5MG NEB 3 ML VIAL INH SCH ×4 (07:23→20:00)
[2017-07-31 08:37] LABS: BASO % 0.5 %; BASO ABS # 0.02 K/uL (0-0.2); EOS % 2.6 %; HEMATOCRIT 36.6 % (37-47); HEMOGLOBIN 12.2 g/dL (12.0-16.0); IG# 0.01 K/uL (0.00-0.02); LYMPH % 26.7 %; LYMPH ABS # 1.04 K/uL (1.2-3.4); MEAN CELL VOLUME 92.4 fL (80-100); MEAN CORPUSCULAR HEMOGLOBIN 30.8 pg (25-34); MEAN CORPUSCULAR HGB CONC 33.3 g/dl (32-36); MEAN PLATELET VOLUME 10.6 fL (7.4-10.4); MONO % 8.2 %; MONO ABS # 0.32 K/uL (0.11-0.59); NEUT % 61.7 %; NEUT ABS # 2.41 K/uL (1.4-6.5); PLATELET COUNT 189 K/uL (130-400); RED CELL DISTRIBUTION WIDTH CV 13.6 % (11.5-14.5)
[2017-07-31 08:54] LABS: CALCIUM 8.7 mg/dl (8.5-10.1); CREATININE 0.76 mg/dl (0.60-1.20); POTASSIUM 3.5 mmol/L (3.5-5.1)
--- NOTE | 2017-07-31 13:31 | Hospitalist Progress Note ---
Hospitalist Progress Note Date of Service Jul 31, 2017. (Angelica Kauffman ., FELICITA) Subjective Pt evaluation today including: conversation w/ patient, physical exam, chart review, lab review, review of inpatient medication list Voiding: no voiding problems Ms. Marrero reports some non productive cough but denies sob. She is somewhat delusional in her speech, accusing nursing of denying her things like her mail from home and reporting that a man with a large cat was outside her doorway just to irritate her because she hates cats. ROS Constitutional: no chills, aches, sweats or fever Respiratory: see HPI Cardiac: no chest pain, palpitations, edema, orthopnea or lightheadedness GI: no abdominal pain, nausea, vomiting, diarrhea or constipation : no dysuria or hesitancy Extremities: no joint pain or weakness Skin: no rash All Other Systems: Reviewed and Negative (Angelica Kauffman CRNP) Medications Medications Administered Medications (Trade) Dose Ordered Sig/Haja Route Start Time Stop Time Status Last Admin Dose Admin Sodium Chloride 500 ml @ 999 mls/hr Q31M STAT IV 07/28/17 18:27 07/28/17 18:57 DC 07/28/17 19:04 999 MLS/HR Dexamethasone Sodium Phosphate (Dexamethasone Inj Pf) 10 mg STK-MED ONCE .ROUTE 07/28/17 19:01 07/28/17 19:02 DC 07/28/17 19:04 10 MG Sodium Chloride 1,000 ml @ 999 mls/hr Q1H1M STAT IV 07/28/17 20:02 07/28/17 21:02 DC 07/28/17 20:21 999 MLS/HR Levofloxacin (Levaquin / D5W) 750 mg NOW STAT IV 07/28/17 20:02 07/28/17 20:05 DC 07/28/17 20:20 750 MG Albuterol/ Ipratropium (Duoneb) 3 ml NOW STAT INH 07/28/17 20:02 07/28/17 20:05 DC 07/28/17 20:20 3 ML Albuterol/ Ipratropium (Duoneb) 3 ml QIDR INH 07/29/17 08:00 08/28/17 07:59 07/31/17 11:14 3 ML Sodium Chloride 1,000 ml @ 100 mls/hr Q10H IV 07/29/17 00:30 07/30/17 15:47 DC 07/30/17 06:21 100 MLS/HR Ceftriaxone Sodium 1 gm/ Dextrose 50 ml @ 100 mls/hr Q24H IV 07/29/17 00:00 08/03/17 00:00 07/30/17 23:49 100 MLS/HR Menthol (Nice Jevon) 24 jevon STK-MED ONCE .ROUTE 07/29/17 08:04 07/29/17 08:05 DC 07/29/17 08:16 24 JEVON Ibuprofen (Advil Tab) 200 mg NOW STAT PO 07/30/17 07:33 07/30/17 07:50 DC 07/30/17 08:37 200 MG (Angelica Kauffman CRNP) Objective Vital Signs Date Time Temp Pulse Resp B/P (MAP) Pulse Ox O2 Delivery O2 Flow Rate FiO2 07/31/17 11:15 77 16 95 Room Air 07/31/17 07:26 Room Air 07/31/17 07:23 81 16 94 Room Air 07/31/17 07:09 37.0 81 18 168/107 (127) 94 Room Air 176/89 (118) 07/31/17 00:00 Room Air 07/30/17 23:35 36.9 74 18 167/87 (113) 96 Room Air 07/30/17 20:03 75 16 95 Room Air 07/30/17 16:00 95 Room Air 07/30/17 15:02 81 16 95 Room Air 07/30/17 14:50 36.8 79 18 154/74 (100) 96 Room Air (Angelica Kauffman CRNP) Physical Exam Notes: General: no distress Eyes: normal inspection, PERLL Respiratory: chest non tender, coarse, expiratory wheezing bilateral bases, no respiratory distress, no accessory muscle use Cardiac: regular rate and rhythm, no rub or gallop, no murmur, no edema, no jvd GI/: active bowel sounds, no abd pain or tenderness, soft, non distended Extremities: normal range of motion, normal strength, non tender Neuro/Psych: alert and oriented x 3, normal mood and affect Skin: normal color, dry (Angelica Kauffman CRNP) Laboratory Results Last 24 Hours Test 07/31/17 08:29 White Blood Count 3.90 K/uL Red Blood Count 3.96 M/uL Hemoglobin 12.2 g/dL Hematocrit 36.6 % Mean Corpuscular Volume 92.4 fL Mean Corpuscular Hemoglobin 30.8 pg Mean Corpuscular Hemoglobin Concent 33.3 g/dl Platelet Count 189 K/uL Mean Platelet Volume 10.6 fL Neutrophils (%) (Auto) 61.7 % Lymphocytes (%) (Auto) 26.7 % Monocytes (%) (Auto) 8.2 % Eosinophils (%) (Auto) 2.6 % Basophils (%) (Auto) 0.5 % Neutrophils # (Auto) 2.41 K/uL Lymphocytes # (Auto) 1.04 K/uL Monocytes # (Auto) 0.32 K/uL Eosinophils # (Auto) 0.10 K/uL Basophils # (Auto) 0.02 K/uL RDW Standard Deviation 46.0 fL RDW Coefficient of Variation 13.6 % Immature Granulocyte % (Auto) 0.3 % Immature Granulocyte # (Auto) 0.01 K/uL Sodium Level 138 mmol/L Potassium Level 3.5 mmol/L Chloride Level 105 mmol/L Carbon Dioxide Level 25 mmol/L Anion Gap 8.0 mmol/L Blood Urea Nitrogen 9 mg/dl Creatinine 0.76 mg/dl Est Creatinine Clear Calc Drug Dose 60.8 ml/min Estimated GFR () 85.9 Estimated GFR (Non- 74.1 BUN/Creatinine Ratio 12.4 Random Glucose 157 mg/dl Calcium Level 8.7 mg/dl (Angelica Kauffman CRNP) Assessment and Plan 81-year-old female here for falls at home and UTI Fall: - Likely secondary to deconditioning/generalized weakness, UTI - Chest x-ray negative - Head CT negative for any acute changes, pelvic x-ray negative - PT recommended inpatient rehabilitation/SNF upon discharge - awaiting placement UTI: - Urine culture positive for pansensitive Escherichia coli - Ceftriaxone IV daily - last dose 1/3 for 5 day regimen - IVF discontinued as patient taking po URI - continue nebs DVT Prophylaxis SCD Full code Disposition: in patient rehab when approved. (Angelica Kauffman CRNP) I agree with FELICITA assessment and plan and have seen and examined pt myself Resting comfortably in bed Disoriented VSS Labs reviewed Admitted with UTI, key sens Ecoli Cont rocephin at this time Will likely need SNF on DC (Dmitry Malin D.O.)
[2017-08-01] VITALS (7 sets, daily range): BP systolic 135–169; BP diastolic 75–83; PULSE 74–91; TEMP 36.9–37.2; O2SAT 93–96
[2017-08-01] MEDS: CEFTRIAXONE SOD INJ 1 GM in DEXTROSE 5% ADD-VANTAGE 50ML 50 ML IV SCH ×2 (00:03→23:45)
[2017-08-01] MEDS: ALBUT/IPRATROP 3MG/0.5MG NEB 3 ML VIAL INH SCH ×4 (07:25→19:08)
--- NOTE | 2017-08-01 13:03 | Hospitalist Progress Note ---
Hospitalist Progress Note Date of Service Aug 01, 2017. (Angelica Kauffman ., FELICITA) Subjective Pt evaluation today including: conversation w/ patient, physical exam, chart review, review of inpatient medication list Voiding: no voiding problems Ms. Marrero is seated in a chair at bedside and states she feels good today. She is a bit difficult to converse with as she continues to be a bit delusional in her understanding of what is going on around her. ROS Constitutional: no chills, aches, sweats or fever Respiratory: no sob,cough, sputum, or wheezing Cardiac: no chest pain, palpitations, edema, orthopnea or lightheadedness GI: no abdominal pain, nausea, vomiting, diarrhea or constipation : no dysuria or hesitancy Extremities: no joint pain or weakness Skin: no rash All other systems reviewed and negative (Angelica Kauffman ., FELICITA) Medications Medications Administered Medications (Trade) Dose Ordered Sig/Haja Route Start Time Stop Time Status Last Admin Dose Admin Sodium Chloride 500 ml @ 999 mls/hr Q31M STAT IV 07/28/17 18:27 07/28/17 18:57 DC 07/28/17 19:04 999 MLS/HR Dexamethasone Sodium Phosphate (Dexamethasone Inj Pf) 10 mg STK-MED ONCE .ROUTE 07/28/17 19:01 07/28/17 19:02 DC 07/28/17 19:04 10 MG Sodium Chloride 1,000 ml @ 999 mls/hr Q1H1M STAT IV 07/28/17 20:02 07/28/17 21:02 DC 07/28/17 20:21 999 MLS/HR Levofloxacin (Levaquin / D5W) 750 mg NOW STAT IV 07/28/17 20:02 07/28/17 20:05 DC 07/28/17 20:20 750 MG Albuterol/ Ipratropium (Duoneb) 3 ml NOW STAT INH 07/28/17 20:02 07/28/17 20:05 DC 07/28/17 20:20 3 ML Albuterol/ Ipratropium (Duoneb) 3 ml QIDR INH 07/29/17 08:00 08/28/17 07:59 08/01/17 10:58 3 ML Sodium Chloride 1,000 ml @ 100 mls/hr Q10H IV 07/29/17 00:30 07/30/17 15:47 DC 07/30/17 06:21 100 MLS/HR Ceftriaxone Sodium 1 gm/ Dextrose 50 ml @ 100 mls/hr Q24H IV 07/29/17 00:00 08/03/17 00:00 08/01/17 00:03 100 MLS/HR Menthol (Nice Jevon) 24 jevon STK-MED ONCE .ROUTE 07/29/17 08:04 07/29/17 08:05 DC 07/29/17 08:16 24 JEVON Ibuprofen (Advil Tab) 200 mg NOW STAT PO 07/30/17 07:33 07/30/17 07:50 DC 07/30/17 08:37 200 MG (Angelica Kauffman CRNP) Objective Vital Signs Date Time Temp Pulse Resp B/P (MAP) Pulse Ox O2 Delivery O2 Flow Rate FiO2 08/01/17 11:00 78 16 96 Room Air 08/01/17 07:39 37.2 75 16 156/83 (107) 94 Room Air 08/01/17 07:27 74 16 96 Room Air 08/01/17 07:10 Room Air 08/01/17 04:00 Room Air 08/01/17 00:06 36.9 76 18 169/75 (106) 93 Room Air 08/01/17 00:00 Room Air 07/31/17 20:36 70 16 98 Room Air 07/31/17 16:00 100 Room Air 07/31/17 15:23 37.0 80 18 138/85 (102) 100 07/31/17 15:07 77 16 93 Room Air (Angelica Kauffman CRNP) Physical Exam Notes: General: no distress Eyes: normal inspection, PERLL Respiratory: chest non tender, clear to auscultation, normal breath sounds, no respiratory distress, no accessory muscle use Cardiac: regular rate and rhythm, no rub or gallop, no murmur, no edema, no jvd GI/: active bowel sounds, no abd pain or tenderness, soft, non distended Extremities: normal range of motion, normal strength, non tender Neuro/Psych: alert and oriented x 3, confused, normal mood and affect Skin: normal color, dry (Angelica Kauffman CRNP) Assessment and Plan 81-year-old female here for falls at home and UTI Fall: - Likely secondary to deconditioning/generalized weakness, UTI - Chest x-ray negative - Head CT negative for any acute changes, pelvic x-ray negative - PT recommended inpatient rehabilitation/SNF upon discharge - awaiting placement UTI: - Urine culture positive for pansensitive Escherichia coli - Ceftriaxone IV daily - last dose 1/3 for 5 day regimen - IVF discontinued as patient taking po URI - continue nebs DVT Prophylaxis SCD Full code Disposition: in patient rehab when approved. (Angelica Kauffman ., FELICITA) I agree with ESTHETICIAN SPA assessment and plan and have seen and examined pt myself Resting comfortably in bed Disoriented VSS Labs reviewed Admitted with UTI, key sens Ecoli Cont rocephin at this time, last day of tx 08/02/17 Awaiting rehab placement (Dmitry Malin, D.O.)
[2017-08-02] VITALS (8 sets, daily range): BP systolic 135–147; BP diastolic 76–83; PULSE 76–91; TEMP 36.6–37; O2SAT 93–97
[2017-08-02] MEDS: ALBUT/IPRATROP 3MG/0.5MG NEB 3 ML VIAL INH SCH ×4 (07:50→19:20)
--- NOTE | 2017-08-02 14:25 | Hospitalist Progress Note ---
Hospitalist Progress Note Date of Service Aug 02, 2017. (Angelica Kauffman ., FELICITA) Subjective Pt evaluation today including: conversation w/ patient, physical exam, chart review, lab review, review of inpatient medication list Voiding: no voiding problems Ms. Marrero reports her cough is improving. She is not short of breath. She is eating and drinking well. ROS Constitutional: no chills, aches, sweats or fever Respiratory: see HPI Cardiac: no chest pain, palpitations, edema, orthopnea or lightheadedness GI: no abdominal pain, nausea, vomiting, diarrhea or constipation : no dysuria or hesitancy Extremities: no joint pain or weakness Skin: no rash All other systems reviewed and negative (Angelica Kauffman CRNP) Medications Medications Administered Medications (Trade) Dose Ordered Sig/Haja Route Start Time Stop Time Status Last Admin Dose Admin Sodium Chloride 500 ml @ 999 mls/hr Q31M STAT IV 07/28/17 18:27 07/28/17 18:57 DC 07/28/17 19:04 999 MLS/HR Dexamethasone Sodium Phosphate (Dexamethasone Inj Pf) 10 mg STK-MED ONCE .ROUTE 07/28/17 19:01 07/28/17 19:02 DC 07/28/17 19:04 10 MG Sodium Chloride 1,000 ml @ 999 mls/hr Q1H1M STAT IV 07/28/17 20:02 07/28/17 21:02 DC 07/28/17 20:21 999 MLS/HR Levofloxacin (Levaquin / D5W) 750 mg NOW STAT IV 07/28/17 20:02 07/28/17 20:05 DC 07/28/17 20:20 750 MG Albuterol/ Ipratropium (Duoneb) 3 ml NOW STAT INH 07/28/17 20:02 07/28/17 20:05 DC 07/28/17 20:20 3 ML Albuterol/ Ipratropium (Duoneb) 3 ml QIDR INH 07/29/17 08:00 08/28/17 07:59 08/02/17 11:15 3 ML Sodium Chloride 1,000 ml @ 100 mls/hr Q10H IV 07/29/17 00:30 07/30/17 15:47 DC 07/30/17 06:21 100 MLS/HR Ceftriaxone Sodium 1 gm/ Dextrose 50 ml @ 100 mls/hr Q24H IV 07/29/17 00:00 08/03/17 00:00 08/01/17 23:45 100 MLS/HR Menthol (Nice Jevno) 24 jevon STK-MED ONCE .ROUTE 07/29/17 08:04 07/29/17 08:05 DC 07/29/17 08:16 24 JEVON Ibuprofen (Advil Tab) 200 mg NOW STAT PO 07/30/17 07:33 07/30/17 07:50 DC 07/30/17 08:37 200 MG (Angelica Kauffman CRNP) Objective Vital Signs Date Time Temp Pulse Resp B/P (MAP) Pulse Ox O2 Delivery O2 Flow Rate FiO2 08/02/17 11:15 81 16 97 Room Air 08/02/17 08:05 36.7 76 16 137/78 (97) 96 Room Air 08/02/17 07:50 81 16 95 Room Air 08/02/17 07:25 Room Air 08/02/17 00:27 36.7 79 18 135/76 (95) 93 Room Air 08/01/17 23:30 Room Air 08/01/17 19:08 77 16 95 Room Air 08/01/17 16:00 Room Air 08/01/17 15:10 74 16 96 Room Air 08/01/17 14:55 37.0 91 16 135/80 (98) 93 Room Air (Angelica Kauffman CRNP) Physical Exam Notes: General: no distress Eyes: normal inspection, PERLL Respiratory: chest non tender, mild expiratory wheezes bilaterally, no respiratory distress, no accessory muscle use Cardiac: regular rate and rhythm, no rub or gallop, no murmur, no edema, no jvd GI/: active bowel sounds, no abd pain or tenderness, soft, non distended Extremities: normal range of motion, normal strength, non tender Neuro/Psych: alert and oriented x 3, some confusion, normal mood and affect Skin: normal color, dry (Angelica Kauffman CRNP) Laboratory Results 07/31/17 08:29 Red Blood Count 3.96, Mean Corpuscular Volume 92.4, Mean Corpuscular Hemoglobin 30.8, Mean Corpuscular Hemoglobin Concent 33.3, Mean Platelet Volume 10.6, Neutrophils (%) (Auto) 61.7, Lymphocytes (%) (Auto) 26.7, Monocytes (%) (Auto) 8.2, Eosinophils (%) (Auto) 2.6, Basophils (%) (Auto) 0.5, Neutrophils # (Auto) 2.41, Lymphocytes # (Auto) 1.04, Monocytes # (Auto) 0.32, Eosinophils # (Auto) 0.10, Basophils # (Auto) 0.02 07/31/17 08:29 Test 07/28/17 18:50 07/28/17 19:00 07/31/17 08:29 Phosphorus Level 2.6 mg/dl (2.5-4.9) Magnesium Level 2.1 mg/dl (1.8-2.4) Total Bilirubin 0.4 mg/dl (0.2-1) Direct Bilirubin 0.1 mg/dl (0-0.2) Aspartate Amino Transf (AST/SGOT) 83 U/L (15-37) Alanine Aminotransferase (ALT/SGPT) 49 U/L (12-78) Alkaline Phosphatase 73 U/L (45-117) Troponin I < 0.015 ng/ml (0-0.045) Pro-B-Type Natriuretic Peptide 130 pg/ml (0-1800) Total Protein 6.6 gm/dl (6.4-8.2) Albumin 3.1 gm/dl (3.4-5.0) Lipase 135 U/L (73-393) Urine Color DK YELLOW Urine Appearance CLEAR (CLEAR) Urine pH 5.0 (4.5-7.5) Urine Specific Crucible 1.030 (1.000-1.030) Urine Protein NEG (NEG) Urine Glucose (UA) TRACE (NEG) Urine Ketones TRACE (NEG) Urine Occult Blood TRACE (NEG) Urine Nitrite POS (NEG) Urine Bilirubin NEG (NEG) Urine Urobilinogen NEG (NEG) Urine Leukocyte Esterase TRACE (NEG) Urine WBC (Auto) 5-10 /hpf (0-5) Urine RBC (Auto) 0-4 /hpf (0-4) Urine Hyaline Casts (Auto) 1-5 /lpf (0-5) Urine Epithelial Cells (Auto) >30 /lpf (0-5) Urine Bacteria (Auto) 4+ (NEG) Urine Renal Epithelial Cells 5-10 /lpf (0-5) Urine Crystals CALCIUM OXALATE (NONE Urine Pathogenic Casts /lpf (0) White Blood Count 3.90 K/uL (4.8-10.8) Red Blood Count 3.96 M/uL (4.2-5.4) Hemoglobin 12.2 g/dL (12.0-16.0) Hematocrit 36.6 % (37-47) Mean Corpuscular Volume 92.4 fL (80-100) Mean Corpuscular Hemoglobin 30.8 pg (25-34) Mean Corpuscular Hemoglobin Concent 33.3 g/dl (32-36) Platelet Count 189 K/uL (130-400) Mean Platelet Volume 10.6 fL (7.4-10.4) Neutrophils (%) (Auto) 61.7 % Lymphocytes (%) (Auto) 26.7 % Monocytes (%) (Auto) 8.2 % Eosinophils (%) (Auto) 2.6 % Basophils (%) (Auto) 0.5 % Neutrophils # (Auto) 2.41 K/uL (1.4-6.5) Lymphocytes # (Auto) 1.04 K/uL (1.2-3.4) Monocytes # (Auto) 0.32 K/uL (0.11-0.59) Eosinophils # (Auto) 0.10 K/uL (0-0.5) Basophils # (Auto) 0.02 K/uL (0-0.2) RDW Standard Deviation 46.0 fL (36.4-46.3) RDW Coefficient of Variation 13.6 % (11.5-14.5) Immature Granulocyte % (Auto) 0.3 % Immature Granulocyte # (Auto) 0.01 K/uL (0.00-0.02) Anion Gap 8.0 mmol/L (3-11) Est Creatinine Clear Calc Drug Dose 60.8 ml/min Estimated GFR () 85.9 Estimated GFR (Non- 74.1 BUN/Creatinine Ratio 12.4 (10-20) Calcium Level 8.7 mg/dl (8.5-10.1) Date/Time Source Procedure Growth Status 07/28/17 19:00 Urine,Catheterized Urine Culture - Final Escherichia Coli Complete (Angelica Kauffman, FELICITA) Assessment and Plan 81-year-old female here for falls at home and UTI Fall: - Likely secondary to deconditioning/generalized weakness, UTI - Chest x-ray negative - Head CT negative for any acute changes, pelvic x-ray negative - PT recommended inpatient rehabilitation/SNF upon discharge - awaiting placement, likely hs UTI: - Urine culture positive for pansensitive Escherichia coli - Ceftriaxone IV daily - last dose 1/3 for 5 day regimen URI - continue nebs, cough improving DVT Prophylaxis SCD Full code Disposition: inpatient rehab when approved. (Angelica Kauffman ., ATTORNEY) I agree with ATTORNEY assessment and plan and have seen and examined pt myself Resting comfortably in bed Disoriented and confused intermittently VSS Labs reviewed Admitted with UTI, key sens Ecoli Cont rocephin at this time, last day of tx 08/02/17 Awaiting rehab placement (Dmitry Malin, D.O.)
[2017-08-02] MEDS: CEFTRIAXONE SOD INJ 1 GM in DEXTROSE 5% ADD-VANTAGE 50ML 50 ML IV SCH (23:14)
[2017-08-03] MEDS: ALBUT/IPRATROP 3MG/0.5MG NEB 3 ML VIAL INH SCH (07:16)
[2017-08-03 07:17] VITALS: PULSE 77; O2SAT 94
[2017-08-03 07:47] VITALS: BP 128/80; PULSE 74; TEMP 37.1; O2SAT 96
[2017-08-03] MEDS ORDERED: ALBUT/IPRATROP 3MG/0.5MG NEB 3 ML VIAL INH PRN (09:15)
[2017-08-03] MEDS ORDERED: ALBUT/IPRATROP 3MG/0.5MG NEB 3 ML VIAL INH SCH (12:00)
--- NOTE | 2017-08-03 13:13 | Hospitalist Progress Note ---
Hospitalist Progress Note Date of Service Aug 03, 2017. Subjective Pt evaluation today including: conversation w/ patient, physical exam, chart review, lab review, review of inpatient medication list Voiding: no voiding problems Ms. Marrero is doing well. Continues to have mild cough, diarrhea has slowed down. Spent extensive time talking with son and patient about discharge planning. Patient was denied [facility] however her therapy recommendations and my own view of her abilities while here make sending her home by herself appear risky. She will stay tonight while her son attempts to find a suitable support system for her return home such as home health aids ROS Constitutional: no chills, aches, sweats or fever Respiratory: see HPI Cardiac: no chest pain, palpitations, edema, orthopnea or lightheadedness GI: no abdominal pain, nausea, vomiting, diarrhea or constipation : no dysuria or hesitancy Extremities: no joint pain or weakness Skin: no rash All other systems reviewed and negative Objective Vital Signs Date Time Temp Pulse Resp B/P (MAP) Pulse Ox O2 Delivery O2 Flow Rate FiO2 08/03/17 08:00 Room Air 08/03/17 07:47 37.1 74 16 128/80 (96) 96 Room Air 08/03/17 07:17 77 16 94 Room Air 08/03/17 00:00 Room Air 08/02/17 23:47 37.0 79 16 147/83 (104) 93 Room Air 08/02/17 19:22 82 16 97 Room Air 08/02/17 16:00 36.6 89 18 138/82 (100) 93 Room Air 08/02/17 15:40 Room Air 08/02/17 15:00 91 16 96 Room Air Physical Exam Notes: General: no distress Eyes: normal inspection, PERLL Respiratory: chest non tender, clear to auscultation, normal breath sounds, no respiratory distress, no accessory muscle use Cardiac: regular rate and rhythm, no rub or gallop, no murmur, no edema, no jvd GI/: active bowel sounds, no abd pain or tenderness, soft, non distended Extremities: normal range of motion, normal strength, non tender Neuro/Psych: alert and oriented x 3, normal mood and affect Skin: normal color, dry Assessment and Plan 81-year-old female here for falls at home and UTI Fall: - Likely secondary to deconditioning/generalized weakness, UTI - Chest x-ray negative - Head CT negative for any acute changes, pelvic x-ray negative - PT recommended inpatient rehabilitation/SNF upon discharge - awaiting placement, denied [facility] UTI: - Urine culture positive for pansensitive Escherichia coli - Ceftriaxone IV daily - last dose 1/3 for 5 day regimen URI - continue nebs, cough improving DVT Prophylaxis SCD Full code Disposition: denied hs, and snf, son discussing options with CM for safe return home Continued [facility] stay due to: home environment unsafe for pt Discharge planning: longterm facility
[2017-08-03 16:01] VITALS: O2SAT 96
[2017-08-03] MEDS ORDERED: COUGH DROP (SUGAR FREE) LOZ 24 LOZ/1 BOX PO PRN (17:15)
[2017-08-03] MEDS ORDERED: NURSING DECISION MEDICATION ORDER SCH (17:15)
[2017-08-04 00:05] VITALS: O2SAT 96
[2017-08-04 05:21] VITALS: BP 137/82; PULSE 72; TEMP 36.7; O2SAT 95
[2017-08-04 08:14] VITALS: BP 142/75; PULSE 69; TEMP 37.2; O2SAT 92
[2017-08-04 15:39] VITALS: BP 145/87; PULSE 81; TEMP 36.9; O2SAT 92
[2017-08-04 16:05] VITALS: O2SAT 96
--- NOTE | 2017-08-04 16:20 | Progress Note ---
Subjective Date of Service: Aug 04, 2017. Subjective Pt evaluation today including: conversation w/ patient, conversation w/ family , physical exam, chart review, lab review, review of studies, review of inpatient medication list Resting comfortably in bed at this time Wanting to go home No other concerns at this time Problem List Medical Problems: (1) Dehydration Status: Acute (2) Generalized weakness Status: Acute Review of Systems Constitutional: No fever, No chills, No sweats, No weight loss, No weakness Eyes: No worsening of vision, No eye pain, No redness, No discharge ENT: No hearing loss, No unusual epistaxis, No nasal symptoms, No sore throat Respiratory: No cough, No sputum, No wheezing, No shortness of breath, No dyspnea on exertion Cardiac: No chest pain, No orthopnea, No PND, No edema, No claudication Abdomen: No pain, No nausea, No vomiting, No diarrhea, No constipation Musculoskeletal: No joint pain, No muscle pain, No swelling, No calf pain Female : No dysuria, No urinary frequency, No hematuria, No incontinence Neurologic: No memory loss, No paralysis, No weakness, No numbness/tingling Psychiatric: No depression symptoms, No anhedonism, No anxiety Endo: No fatigue, No excessive thirst Skin: No rash, No itch Objective Vital Signs Date Time Temp Pulse Resp B/P (MAP) Pulse Ox O2 Delivery O2 Flow Rate FiO2 08/04/17 15:39 36.9 81 18 145/87 (106) 92 Room Air 08/04/17 08:14 37.2 69 20 142/75 (97) 92 Nasal Cannula 08/04/17 08:00 Room Air 08/04/17 05:21 36.7 72 18 137/82 (100) 95 Room Air 08/04/17 00:05 96 Room Air Physical Exam General Appearance: WD/WN, no apparent distress Eyes: normal inspection, PERRL, EOMI, sclerae normal Neck: supple, no adenopathy, thyroid normal, no JVD Respiratory/Chest: chest non-tender, lungs clear, normal breath sounds, no respiratory distress Cardiovascular: regular rate, rhythm, no edema, no gallop, no JVD Abdomen: normal bowel sounds, non tender, soft, no organomegaly Neurologic/Psychiatric: no motor/sensory deficits, alert, normal mood/affect, oriented x 3 Skin: normal color, warm/dry, no rash Lymphatic: no adenopathy Assessment and Plan 81-year-old female here for falls at home and UTI Fall: - Likely secondary to deconditioning/generalized weakness, UTI - Chest x-ray negative - Head CT negative for any acute changes, pelvic x-ray negative - PT recommended inpatient rehabilitation/SNF upon discharge - awaiting placement, denied [facility] UTI: - Urine culture positive for pansensitive Escherichia coli - Ceftriaxone IV daily - last dose 1/3 for 5 day regimen URI - continue nebs, cough improving DVT Prophylaxis SCD Full code Disposition: denied hs, and snf, son discussing options with CM for safe return home Continued [facility] stay due to: home environment unsafe for pt Discharge planning: retirement facility
[2017-08-05 00:10] VITALS: BP 140/75; PULSE 76; TEMP 37.2; O2SAT 96
[2017-08-05 07:37] VITALS: BP 130/73; PULSE 69; TEMP 37.5; O2SAT 91
[2017-08-05 10:08] VITALS: TEMP 37
--- NOTE | 2017-08-05 10:57 | DIAGNOSTIC IMAGING REPORT ---
CHEST 2 VIEWS ROUTINE CLINICAL HISTORY: Weakness. Possible pneumonia. Inability to stand. COMPARISON STUDY: 07/28/2017 FINDINGS: The cardiac and mediastinal contours remain stable. There is no focal pulmonary consolidation. There is mild elevation of the interstitium. While this may be secondary to a hypoventilatory study, mild interstitial edema or an interstitial inflammatory process cannot be excluded.[ IMPRESSION: 1. Mild elevation of the interstitium. This is a nonspecific finding which could be secondary to a hypoventilatory study, mild interstitial edema, or an interstitial inflammatory process 2. No evidence of focal pulmonary consolidation Electronically signed by: Adalid Mirza M.D. 08/05/2017 10:56 AM Dictated Date/Time: 08/05/2017 10:55 AM
[2017-08-05] MEDS ORDERED: PRVHFAIN INH (12:50)
--- NOTE | 2017-08-05 12:54 | Discharge Instructions ---
Discharge Instructions Date of Service Aug 05, 2017. Admission Reason for Admission: Acute Bronchitis, Fall, Uti, Weakness Discharge Discharge Diagnosis / Problem: Acute bronchitis, fall, uti Discharge Goals Goal(s): Improve function Activity Recommendations Activity Limitations: resume your previous activity . Instructions / Follow-Up Instructions / Follow-Up Please continue PT/OT A prescription for an inhaler has been sent to your pharmacy. You can use this every four hours, 2 puffs, as needed if you are sob or wheezing while you recover from bronchitis You should follow up with your primary care provider in about a week Current Hospital Diet Patient's current hospital diet: Regular Diet Discharge Diet Recommended Diet: Regular Diet Procedures Procedures Performed: Chest, Pelvis x rays Head CT Pending Studies Studies pending at discharge: no Medical Emergencies . Who to Call and When: Medical Emergencies: If at any time you feel your situation is an emergency, please call 911 immediately. . Non-Emergent Contact Non-Emergency issues call your: Primary Care Provider Call Non-Emergent contact if: you have a fever, you have any medication questions . Past History Medical & Surgical History: (1) Weakness (2) Fall (3) UTI (urinary tract infection) (4) Acute bronchitis . "Provider Documentation" section prepared by Angelica Kauffman. . VTE Core Measure Inpt VTE Proph given/why not?: SCD's
--- NOTE | 2017-08-05 13:08 | Discharge Summary ---
Discharge Summary Date of Service Aug 05, 2017. Discharge Summary Admission Date: Jul 28, 2017 at 23:09 Discharge Date: Aug 05, 2017 Discharge Disposition: Personal care Principal Diagnosis: UTI, fall, weakness, Acute bronchitis Immunizations: Have You Had Influenza Vaccine: Unknown History of Tetanus Vaccine?: Unknown History of Pneumococcal: Unknown History of Hepatitis B Vaccine: Unknown Procedures: CHEST 2 VIEWS ROUTINE CLINICAL HISTORY: Weakness. Possible pneumonia. Inability to stand. COMPARISON STUDY: 07/28/2017 FINDINGS: The cardiac and mediastinal contours remain stable. There is no focal pulmonary consolidation. There is mild elevation of the interstitium. While this may be secondary to a hypoventilatory study, mild interstitial edema or an interstitial inflammatory process cannot be excluded.[ IMPRESSION: 1. Mild elevation of the interstitium. This is a nonspecific finding which could be secondary to a hypoventilatory study, mild interstitial edema, or an interstitial inflammatory process 2. No evidence of focal pulmonary consolidation HEAD WITHOUT CONTRAST (CT) CT DOSE: 1003.45 mGycm HISTORY: Trauma. Mental status change. LUCERO fall TECHNIQUE: Multiaxial CT images of the head were performed without the use of intravenous contrast. A dose lowering technique was utilized adhering to the principles of ALARA. Comparison: 10/16/2012 Findings: Trace fluid within the right maxillary sinus. Sinuses otherwise are clear. Mastoids are clear. Moderate sclerosis moderate right mastoid air cells considered chronic. No acute posttraumatic bony abnormality. Findings of moderate atrophy involving the cerebellar as well as cerebral hemispheres. Mild compensatory ventricular prominence. No acute intracranial hemorrhage. The calvarium and skull base are intact. The ventricles and sulci are within normal limits. There is no mass, hematoma, midline shift, or acute infarct. Impression: Chronic and age-related change. No acute process. PELVIS 1 OR 2 VIEW ROUTINE CLINICAL HISTORY: pain fall trauma COMPARISON: None. DISCUSSION: The bones and joint spaces appear intact. There is no evidence of fracture, dislocation or bony disease. There is no evidence for soft tissue swelling. IMPRESSION: Negative study. CHEST ONE VIEW PORTABLE CLINICAL HISTORY: sob dyspnea COMPARISON STUDY: 10/16/2012 FINDINGS: The bones soft tissues and hemidiaphragms are normal. The cardiomediastinal silhouette is normal. The lungs are clear. The pulmonary vasculature is normal. IMPRESSION: Negative chest. Medication Reconciliation New Medications: Albuterol (Ventolin Hfa) 60 Puffs/5400 Mcg Aers 2 PUFF INH Q4H PRN for SOB/Wheezing for 7 Days, #1 INHALER Discharge Exam ROS Constitutional: no chills, aches, sweats or fever Respiratory: non productive cough, no sob Cardiac: no chest pain, palpitations, edema, orthopnea or lightheadedness GI: no abdominal pain, nausea, vomiting, diarrhea or constipation : no dysuria or hesitancy Extremities: no joint pain or weakness Skin: no rash All other systems reviewed and negative General: no distress Eyes: normal inspection, PERLL Respiratory: chest non tender, right base coarse to auscultation, other cordero clear, no respiratory distress, no accessory muscle use Cardiac: regular rate and rhythm, no rub or gallop, no murmur, no edema, no jvd GI/: active bowel sounds, no abd pain or tenderness, soft, non distended Extremities: normal range of motion, normal strength, non tender Neuro/Psych: alert and oriented x 3, normal mood and affect Skin: normal color, dry Hospital Course Ms. Marrero presented to the ED for progressive weakness which resulted in the patient sliding off the commode. She then slid off couch the following morning, no known injuries, she did not hit her head. She called her pcp and was advised to come to the hospital. She also had been suffering from a dry cough, sore throat, runny nose, nasal congestion, makeda earache, and subjective fever. Fall: - Likely secondary to deconditioning/generalized weakness, UTI - Chest x-ray negative x2 - Head CT negative for any acute changes, pelvic x-ray negative - Patient has good endurance/motivation but there are concerns for safety going home from both care team and sons, will dc to personal care UTI: - Urine culture positive for pansensitive Escherichia coli - Ceftriaxone IV daily - last dose /3 for 5 day regimen URI - continue nebs, cough improving I agree with FISH HOUSEKEEPER assessment and plan and have seen and examined pt myself Resting comfortably in bed Disoriented and confused intermittently VSS Labs reviewed Admitted with UTI, key sens Ecoli Finished course of rocephin last day of tx 08/02/17, total 5 days DC to home, son will look into personal care homes at this time Total Time Spent: Greater than 30 minutes This includes examination of the patient, discharge planning, medication reconciliation, and communication with other providers. Discharge Instructions Please refer to the electronic Patient Visit Report (Discharge Instructions) for additional information.
[2017-08-05 14:40] VITALS: BP 130/73; PULSE 69; TEMP 37; O2SAT 91
== END 2017-08-05 15:53 | disposition home health service (06) ==
LOC: C.EDB 18:12 → C.MS2W 23:09 → EEVIPCON 23:09 → ENRESERV 23:17 → C.MS2W 07-30 16:12
PROVIDERS: ADMIT Hospitalist; ATTEND Hospitalist
DX: N39.0 Urinary tract infection, site not specified (principal); B96.20 Unspecified Escherichia coli [E. coli] as the cause of diseases classified elsewhere; E86.0 Dehydration; J20.9 Acute bronchitis, unspecified; Z91.81 History of falling; Z90.49 Acquired absence of other specified parts of digestive tract; Z87.442 Personal history of urinary calculi

== ENCOUNTER → 2017-11-13 | Outpatient (CLI) | payer BC ==
[~2017-11-13] MED LIST changes: -NAPR1TAB9 PO; -NYSTOIN TOP; +PRVHFAIN INH; -TERB1CRE TOP
[2017-11-13 12:48] LABS: ALBUMIN 3.5 gm/dl (3.4-5.0); ALT/SGPT 34 U/L (12-78); AST/SGOT 24 U/L (15-37); BLOOD UREA NITROGEN 14 mg/dl (7-18); CALCIUM 9.3 mg/dl (8.5-10.1); CARBON DIOXIDE 29 mmol/L (21-32); CREATININE 0.74 mg/dl (0.60-1.20); GLUCOSE 91 mg/dl (70-99); POTASSIUM 3.6 mmol/L (3.5-5.1); SODIUM 140 mmol/L (136-145)
[2017-11-13 12:51] LABS: ALKALINE PHOSPHATASE 87 U/L (45-117); BASO % 0.6 %; BASO ABS # 0.04 K/uL (0-0.2); EOS % 4.2 %; EOS ABS # 0.26 K/uL (0-0.5); HEMATOCRIT 42.6 % (37-47); HEMOGLOBIN 14.2 g/dL (12.0-16.0); IG# 0.01 K/uL (0.00-0.02); LYMPH ABS # 1.56 K/uL (1.2-3.4); MEAN CELL VOLUME 89.9 fL (80-100); MEAN CORPUSCULAR HGB CONC 33.3 g/dl (32-36); MEAN PLATELET VOLUME 11.1 fL (7.4-10.4); MONO % 8.8 %; MONO ABS # 0.55 K/uL (0.11-0.59); NEUT % 61.2 %; NEUT ABS # 3.81 K/uL (1.4-6.5); PLATELET COUNT 211 K/uL (130-400); RED CELL DISTRIBUTION WIDTH CV 14.6 % (11.5-14.5); RED CELL DISTRIBUTION WIDTH SD 47.9 fL (36.4-46.3); TOTAL PROTEIN 7.4 gm/dl (6.4-8.2); WHITE BLOOD COUNT 6.23 K/uL (4.8-10.8)
[2017-11-13 12:55] LABS: HEMOGLOBIN A1C 5.9 % (4.5-5.6)
== END | disposition home or self-care (01) ==
LOC: C.LABBFT 07:37
PROVIDERS: ATTEND Internal Medicine
DX: Z00.00 Encounter for general adult medical examination without abnormal findings (principal); E78.5 Hyperlipidemia, unspecified; E55.9 Vitamin D deficiency, unspecified; R73.01 Impaired fasting glucose; R26.81 Unsteadiness on feet

== ENCOUNTER → 2017-12-07 | Outpatient (CLI) | payer BC ==
--- NOTE | 2017-12-08 07:48 | MAMMOGRAPHY REPORT ---
BILATERAL DIGITAL SCREENING MAMMOGRAM TOMOSYNTHESIS WITH CAD: 12/07/2017 CLINICAL HISTORY: Routine screening. Patient has no complaints. TECHNIQUE: Breast tomosynthesis in addition to standard 2D mammography was performed. Current study was also evaluated with a Computer Aided Detection (CAD) system. COMPARISON: Comparison is made to exams dated: 12/05/2016 mammogram, 12/02/2015 mammogram, 12/01/2014 mamm ogram, 11/28/2013 mammogram, 11/21/2012 mammogram, and 11/21/2011 mammogram - [facility] BREAST COMPOSITION: The tissue of both breasts is almost entirely fatty. FINDINGS: No suspicious masses, calcifications, or areas of architectural distortion are noted in ei ther breast. There has been no significant interval change compared to prior exams. Scattered bilater al benign-appearing calcifications are not significantly changed. IMPRESSION: ACR BI-RADS CATEGORY 2: BENIGN There is no mammographic evidence of malignancy. A 1 year screening mammogram is recommended. The pa tient will receive written notification of the results. Approximately 10% of breast cancers are not detected with mammography. A negative mammographic report should not delay biopsy if a clinically suggestive mass is present. Ruth Navarrete M.D. /:12/07/2017 13:45:42 Jig Filler: Belkys COOPER(Lisa)(Lacy)(BD), [facility] letter sent: Normal 1/2 BI-RADS Code: ACR BI-RADS Category 2: Benign
== END | disposition home or self-care (01) ==
LOC: C.MAMM 08:31
PROVIDERS: ATTEND Internal Medicine
DX: Z12.31 Encounter for screening mammogram for malignant neoplasm of breast (principal)

== ENCOUNTER 2019-04-16 19:23 | Inpatient (IN) ==
--- NOTE | 2019-04-16 19:28 | Emergency Department Note ---
Entered by Lenore Cortes acting as a scribe for Raven Sutton MD History of Present Illness General Stated complaint: FALL, AMS, Home Medications Home Medications Medication Instructions Recorded Confirmed Type Albuterol (Ventolin Hfa) 2 puff INHALATION Q4H PRN 7 Days 08/05/17 Rx #1 inhaler Allergies Allergy/AdvReac Type Severity Reaction Status Date / Time No Known Allergies Allergy Unverified 07/28/17 19:54 Review of Systems See HPI for pertinent positives & negatives. and A total of 10 systems reviewed and were otherwise negative Physical Exam Vital signs reviewed. General: Well-appearing 83 year old female, in no significant distress. HEENT: No scleral icterus, PERRLA, neck supple. Atraumatic. Cardiovascular: Regular rate and rhythm, no extra sounds. Pulmonary: Clear to auscultation bilaterally, normal work of breathing. Abdomen: Soft, nontender, nondistended, positive bowel sounds. Musculoskeletal: Atraumatic, no peripheral edema. Neurologic: Patient awake alert and oriented x 3, full strength in all 4 extremities. Cranial nerves 2 through 12 grossly intact. Skin: Warm, dry, no rash Discharge Plan Visit Data Stated Complaint: FALL, AMS, ED Provider: Raven Sutton Prescriptions Prescriptions: No Action Albuterol (Ventolin Hfa) 60 PUFFS/5,400 MCG AEROSOL,SOLN 2 puff Inhalation Q4H PRN (Reason: SOB/Wheezing) 7 Days Qty: 1 RF: 0
[2019-04-16 19:55] LABS: Basophils # (auto) 0.01 K/uL (0-0.2); Basophils % (auto) 0.1 %; Eosinophils # (auto) 0.01 K/uL (0-0.5); Eosinophils % (auto) 0.1 %; Hematocrit (blood only) 48.6 % (37-47); Hemoglobin 16.8 g/dL (12.0-16.0); Immature Granulocytes # (auto) 0.02 K/uL (0.00-0.02); Immature Granulocytes % (auto) 0.2 %; Lymphocytes # (auto) 0.85 K/uL (1.2-3.4); Lymphocytes % (auto) 7.6 %; Mean Corpuscular Hemoglobin 31.6 pg (25-34); Mean Corpuscular Hgb Conc 34.6 g/dL (32-36); Mean Corpuscular Volume 91.5 fL (80-100); Mean Platelet Volume 11.8 fL (7.4-10.4); Monocytes # (auto) 1.05 K/uL (0.11-0.59); Monocytes % (auto) 9.4 %; Neutrophils % (auto) 82.6 %; Platelet Count 260 K/uL (130-400); RDW Coefficient of Variation 13.7 % (11.5-14.5); RDW Standard Deviation 45.7 fL (36.4-46.3); Red Blood Count 5.31 M/uL (4.2-5.4); White Blood Count 11.14 K/uL (4.8-10.8)
--- NOTE | 2019-04-16 19:57 | XRay Report ---
XR chest 1V portable CLINICAL HISTORY: Sepsis dyspnea COMPARISON STUDY: 07/28/2017 FINDINGS: The bones soft tissues and hemidiaphragms are normal. The cardiomediastinal silhouette is n ormal. The lungs are clear. The pulmonary vasculature is normal. IMPRESSION: Negative chest. The above report was generated using voice recognition software. It may contain grammatical, syntax or spelling errors. Electronically signed by: Red Diallo M.D. 04/16/2019 7:56 PM
--- NOTE | 2019-04-16 20:00 | XRay Report ---
XR pelvis 1-2V routine CLINICAL HISTORY: trauma pain COMPARISON: 08/01/2018 DISCUSSION: Considerable degenerative change of the hips as well as bony pelvis. No well-defined acut e bony abnormality. Generalized osteopenia. No evidence for acetabular protrusion. There is no eviden ce for soft tissue swelling. IMPRESSION: Considerable degenerative change. Osteopenia. No acute process. The above report was generated using voice recognition software. It may contain grammatical, syntax or spelling errors. Electronically signed by: Red Diallo M.D. 04/16/2019 7:59 PM
[2019-04-16 20:05] LABS: Alanine Aminotransferase 64 U/L (12-78); Albumin Level 3.6 gm/dl (3.4-5.0); Aspartate Aminotransferase 68 U/L (15-37); BUN Creatinine Ratio 53.1 (10-20); Blood Urea Nitrogen 47 mg/dl (7-18); Calcium 9.4 mg/dl (8.5-10.1); Carbon Dioxide 24 mmol/L (21-32); Chloride 105 mmol/L (98-107); Creatinine Clr Calc Pharmacy 41.3 ml/min; Est GFR (African American) 70.9; Est GFR (Non-African American) 61.2; Glucose 111 mg/dl (70-99); Magnesium 2.3 mg/dl (1.8-2.4); Potassium 3.8 mmol/L (3.5-5.1); Sodium 141 mmol/L (136-145)
[2019-04-16 20:09] LABS: Albumin Globulin Ratio 0.9 (0.9-2); Alkaline Phosphatase 85 U/L (45-117); Bilirubin,Total 1.4 mg/dl (0.2-1); Creatine Kinase 862 U/L (26-192); Creatine Kinase MB 17.8 ng/ml (0.5-3.6); Globulin 3.8 gm/dl (2.5-4.0); Total Protein 7.4 gm/dl (6.4-8.2); Troponin I < 0.015 ng/ml (0-0.045)
--- NOTE | 2019-04-16 20:10 | Emergency Department Note ---
Entered by Saleem Gay acting as a scribe for History of Present Illness General Chief complaint: Fall Stated complaint: FALL, AMS, Source: patient and EMS Mode of arrival: ambulatory Limitations: other (limited secondary to the patient's history of dementia) History of Present Illness The patient is an 83 y/o female who presents to the ED with an AMS after a fall that occurred 3 days ago. EMS states the patient's son last saw her Monday. They reports the patient claims she was sleeping Monday night when she woke up and tried to walk. EMS notes the patient told them she fell down, hit her head, and broke her favorite lamp. They states she has been on the floor since she fell and was incontinent of her stool and urine. EMS reports the patient was initially hypothermic and then was transported her with the heat on, and her temperature stabilized. They note the patient thinks it is 1937. EMS states the patient's sons called EMS about an hour ago. The patient denies chest pain, shortness of breath, and abdominal pain. The patient's sons state she seems more confused than normal, and she normally knows what year it is. HPI limited secondary to the patient's history of dementia. Home Medications Home Medications Medication Instructions Recorded Confirmed Type No Known Home Medications 04/16/19 04/16/19 History Allergies Allergy/AdvReac Type Severity Reaction Status Date / Time No Known Allergies Allergy Verified 04/16/19 21:36 Past Med/Surg History Medical History Acute bronchitis (Resolved) Fall (Resolved) UTI (urinary tract infection) (Resolved) Weakness (Resolved) Surgical History No pertinent past surgical history Family History Other Cancer Heart disease Hypertension Social History Preferred Language: Palestinian Communication Ability: Impaired Communication Ability Comment: HX DEMENTIA 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 Beliefs That Will Affect Care: None marital status: / Current Living Situation: Alone Other Information That Helps Us Care for You: No Feels Safe at Home: Yes Safety Concerns: Feels Safe At This Time Smoking Status: Never smoker Hx Alcohol Use: No Hx Substance Use: No Review of Systems Other (ROS limited secondary to the patient's history of dementia) Physical Exam Vital Signs Vital Signs - 24 hr 04/16/19 19:51 04/16/19 19:58 04/16/19 20:39 Temperature 35.1 C L Temperature Source Oral Sepsis Recent Fever Within 48 Hours No Sepsis New/Unexplained Change in Mental Status No Sepsis Action Taken by Nursing No Action Required Pulse Rate 95 H Pulse Rate [Apical] 90 Pulse Rhythm Regular Pulse Rhythm [Apical] Regular Pulse Strength Normal Pulse Strength [Apical] Normal Respiratory Rate 20 18 Respiratory Effort / Characteristics Non-Labored Respiratory Depth Normal Blood Pressure 151/90 H Blood Pressure [Right Arm] 135/84 Blood Pressure Mean 110 Blood Pressure Mean [Right Arm] 101 Blood Pressure Position Lying Pulse Oximetry 99 99 99 Oxygen Delivery Method Room Air Room Air Room Air GENERAL: The patient is awake and alert. She is somewhat anxious appearing but appears comfortable. EYES: The conjunctivae are clear. The pupils are round and reactive. EARS, NOSE, MOUTH AND THROAT: The nose is without any evidence of any deformity. Mucous membranes are moist tongue is midline NECK: The neck is nontender and supple. RESPIRATORY: Normal respiratory effort is noted there is no evidence of wheezing rhonchi or rales CARDIOVASCULAR: Regular rate and rhythm noted there no murmurs rubs or gallops normal S1 normal S2 GASTROINTESTINAL: The abdomen is soft. Bowel sounds are present in all quadrants. Abdomen is nontender. Rectal exam revealed light brown stool which was heme positive. BACK: No midline tenderness was noted. MUSCULOSKELETAL/EXTREMITIES: There is no evidence of gross deformity full range of motion is noted in the hips and shoulders SKIN: Pedal edema was noted bilaterally. There were pressure sores noted in the sacral region. NEUROLOGIC: Patient is awake and oriented to person place but not time or s ituation. Strength is symmetric but diminished bilaterally. Course 1928: Past medical records reviewed. The patient was evaluated in room A02. A complete history and physical exam was performed. 1930: I discussed the patient's case with her two sons at bedside. I advised them of the likely need for a hospitalist evaluation. They are in agreement with the treatment plan. 2136: I reviewed the patient's case with Dr. Harry, [facility] Hospitalist. He will evaluate the patient for further management. Administered Medications Heparin Sodium (Porcine) (Heparin Sodium (Porcine)) 5,000 units SQ Q12 [facility] Stop: 05/17/19 08:59 Last Admin: 04/18/19 07:40 Dose: 5,000 units Documented by: [id number] Cosigned by: [id number] Admin: 04/17/19 21:20 Dose: Not Given Documented by: [id number] Admin: 04/17/19 07:47 Dose: 5,000 units Documented by: [id number] Cosigned by: [id number] Ceftriaxone Sodium 1,000 mg/ (Dextrose) 50 mls @ 100 mls/hr IV Q24H [facility]; Protocol Stop: 04/25/19 21:29 Last Infusion: 04/17/19 22:10 Dose: 0 mls/hr Documented by: [id number] Admin: 04/17/19 21:16 Dose: 100 mls/hr Documented by: [id number] Potassium Chloride/Sodium Chloride (1/2 Nss + 20meq Kcl 1000ml) 20 meq in 1,000 mls @ 80 mls/hr IV .[id number] [facility] Stop: 05/17/19 16:14 Last Admin: 04/18/19 05:08 Dose: 80 mls/hr Documented by: [id number] Infusion: 04/18/19 05:08 Dose: 80 mls/hr Documented by: [id number] Admin: 04/17/19 16:45 Dose: 80 mls/hr Documented by: [id number] Discontinued Medications Famotidine (Pepcid 20mg Iv Push) 20 mg IV ONE STA Stop: 04/16/19 21:19 Last Admin: 04/16/19 21:41 Dose: 20 mg Documented by: [id number] Ceftriaxone Sodium (Rocephin) 1,000 mg in 50 mls @ 100 mls/hr IV NOW STA Stop: 04/16/19 21:47 Last Infusion: 04/16/19 22:57 Dose: 0 mls/hr Documented by: [id number] Admin: 04/16/19 21:41 Dose: 100 mls/hr Documented by: [id number] Sodium Chloride (Nss 1000ml) 1,000 mls @ 999 mls/hr IV .Q1H1M ONE Stop: 04/16/19 22:18 Last Infusion: 04/16/19 22:57 Dose: 0 mls/hr Documented by: [id number] Admin: 04/16/19 21:41 Dose: 999 mls/hr Documented by: [id number] Sodium Chloride (Nss 1000ml) 1,000 mls @ 100 mls/hr IV .Q10H [facility] Stop: 05/16/19 22:50 Last Infusion: 04/17/19 16:45 Dose: 0 mls/hr Documented by: [id number] Admin: 04/17/19 08:49 Dose: 100 mls/hr Documented by: [id number] Infusion: 04/17/19 08:49 Dose: 100 mls/hr Documented by: [id number] Admin: 04/16/19 23:22 Dose: 100 mls/hr Documented by: [id number] Medical Decision Making Differential Diagnosis Differential diagnoses include major intracranial, cervical, spinal, thoracic, abdominal, pelvic and neurologic injury. Fracture, contusion, sprain, strain, laceration, abrasions included as well. Medical Records Attestation: I reviewed the patient's medical records. Home Medications Current Medication List: was personally reviewed by me Laboratory Data Attestation: I reviewed the patient's lab results. Result diagrams: 04/18/19 06:37 04/17/19 07:08 Lab Results 04/16/19 04/16/19 04/16/19 Range/Units 18:59 18:59 18:59 WBC 11.14 H (4.8-10.8) K/uL RBC 5.31 (4.2-5.4) M/uL Hgb 16.8 H (12.0-16.0) g/dL Hct 48.6 H (37-47) % MCV 91.5 (80-100) fL MCH 31.6 (25-34) pg MCHC 34.6 (32-36) g/dL RDW Std Deviation 45.7 (36.4-46.3) fL RDW Coeff of Sajan 13.7 (11.5-14.5) % Plt Count 260 (130-400) K/uL MPV 11.8 H (7.4-10.4) fL Immature Gran % (Auto) 0.2 % Neut % (Auto) 82.6 % Lymph % (Auto) 7.6 % Ripley % (Auto) 9.4 % Eos % (Auto) 0.1 % Baso % (Auto) 0.1 % Immature Gran # (Auto) 0.02 (0.00-0.02) K/uL Neut # (Auto) 9.20 H (1.4-6.5) K/uL Lymph # (Auto) 0.85 L (1.2-3.4) K/uL Ripley # (Auto) 1.05 H (0.11-0.59) K/uL Eos # (Auto) 0.01 (0-0.5) K/uL Baso # (Auto) 0.01 (0-0.2) K/uL ESR 33 H (0-21) mm/hr PT INR APTT PTT Ratio Sodium (136-145) mmol/L Potassium (3.5-5.1) mmol/L Chloride (98-107) mmol/L Carbon Dioxide (21-32) mmol/L Anion Gap (3-11) BUN (7-18) mg/dl Creatinine (0.6-1.2) mg/dl Est Cr Clr Drug Dosing ml/min Est GFR ( Amer) Est GFR (Non-Af Amer) BUN/Creatinine Ratio (10-20) Glucose (70-99) mg/dl Lactate (0.4-2.0) mmol/L Calcium (8.5-10.1) mg/dl Magnesium (1.8-2.4) mg/dl Total Bilirubin (0.2-1) mg/dl AST (15-37) U/L ALT (12-78) U/L Alkaline Phosphatase (45-117) U/L Total Creatine Kinase (26-192) U/L CK-MB (CK-2) (0.5-3.6) ng/ml CK/CKMB % Calc (0-3.0) Troponin I (0-0.045) ng/ml C-Reactive Protein (0-0.29) mg/dl Total Protein (6.4-8.2) gm/dl Albumin (3.4-5.0) gm/dl Globulin (2.5-4.0) gm/dl Albumin/Globulin Ratio (0.9-2) Procalcitonin 0.08 (0-0.5) ng/ml Urine Color Urine Appearance (Clear) Urine pH (4.5-7.5) Ur Specific Wister (1.000-1.030) Urine Protein (Negative) Urine Glucose (UA) (Negative) Urine Ketones (Negative) Urine Blood (Negative) Urine Nitrite (Negative) Urine Bilirubin (Negative) Urine Urobilinogen (Negative) Ur Leukocyte Esterase (Negative) Urine WBC (Auto) (0-5) /hpf Urine RBC (Auto) (0-4) /hpf U Hyaline Cast (Auto) (0-5) /lpf U Epithel Cells (Auto) (0-5) /lpf Urine Bacteria (Auto) (Negative) 04/16/19 04/16/19 04/16/19 Range/Units 18:59 18:59 20:01 WBC (4.8-10.8) K/uL RBC (4.2-5.4) M/uL Hgb (12.0-16.0) g/dL Hct (37-47) % MCV (80-100) fL MCH (25-34) pg MCHC (32-36) g/dL RDW Std Deviation (36.4-46.3) fL RDW Coeff of Sajan (11.5-14.5) % Plt Count (130-400) K/uL MPV (7.4-10.4) fL Immature Gran % (Auto) % Neut % (Auto) % Lymph % (Auto) % Ripley % (Auto) % Eos % (Auto) % Baso % (Auto) % Immature Gran # (Auto) (0.00-0.02) K/uL Neut # (Auto) (1.4-6.5) K/uL Lymph # (Auto) (1.2-3.4) K/uL Ripley # (Auto) (0.11-0.59) K/uL Eos # (Auto) (0-0.5) K/uL Baso # (Auto) (0-0.2) K/uL ESR (0-21) mm/hr PT Cancelled INR Cancelled APTT Cancelled PTT Ratio Cancelled Sodium 141 (136-145) mmol/L Potassium 3.8 (3.5-5.1) mmol/L Chloride 105 (98-107) mmol/L Carbon Dioxide 24 (21-32) mmol/L Anion Gap 12.0 H (3-11) BUN 47 H (7-18) mg/dl Creatinine 0.88 (0.6-1.2) mg/dl Est Cr Clr Drug Dosing 41.3 ml/min Est GFR ( Amer) 70.9 Est GFR (Non-Af Amer) 61.2 BUN/Creatinine Ratio 53.1 H (10-20) Glucose 111 H (70-99) mg/dl Lactate 1.8 (0.4-2.0) mmol/L Calcium 9.4 (8.5-10.1) mg/dl Magnesium 2.3 (1.8-2.4) mg/dl Total Bilirubin 1.4 H (0.2-1) mg/dl AST 68 H (15-37) U/L ALT 64 (12-78) U/L Alkaline Phosphatase 85 (45-117) U/L Total Creatine Kinase 862 H (26-192) U/L CK-MB (CK-2) 17.8 H (0.5-3.6) ng/ml CK/CKMB % Calc 2.1 (0-3.0) Troponin I < 0.015 (0-0.045) ng/ml C-Reactive Protein 3.90 H (0-0.29) mg/dl Total Protein 7.4 (6.4-8.2) gm/dl Albumin 3.6 (3.4-5.0) gm/dl Globulin 3.8 (2.5-4.0) gm/dl Albumin/Globulin Ratio 0.9 (0.9-2) Procalcitonin (0-0.5) ng/ml Urine Color Urine Appearance (Clear) Urine pH (4.5-7.5) Ur Specific Wister (1.000-1.030) Urine Protein (Negative) Urine Glucose (UA) (Negative) Urine Ketones (Negative) Urine Blood (Negative) Urine Nitrite (Negative) Urine Bilirubin (Negative) Urine Urobilinogen (Negative) Ur Leukocyte Esterase (Negative) Urine WBC (Auto) (0-5) /hpf Urine RBC (Auto) (0-4) /hpf U Hyaline Cast (Auto) (0-5) /lpf U Epithel Cells (Auto) (0-5) /lpf Urine Bacteria (Auto) (Negative) 04/16/19 04/16/19 Range/Units 20:18 20:30 WBC (4.8-10.8) K/uL RBC (4.2-5.4) M/uL Hgb (12.0-16.0) g/dL Hct (37-47) % MCV (80-100) fL MCH (25-34) pg MCHC (32-36) g/dL RDW Std Deviation (36.4-46.3) fL RDW Coeff of Sajan (11.5-14.5) % Plt Count (130-400) K/uL MPV (7.4-10.4) fL Immature Gran % (Auto) % Neut % (Auto) % Lymph % (Auto) % Ripley % (Auto) % Eos % (Auto) % Baso % (Auto) % Immature Gran # (Auto) (0.00-0.02) K/uL Neut # (Auto) (1.4-6.5) K/uL Lymph # (Auto) (1.2-3.4) K/uL Ripley # (Auto) (0.11-0.59) K/uL Eos # (Auto) (0-0.5) K/uL Baso # (Auto) (0-0.2) K/uL ESR (0-21) mm/hr PT 11.2 INR 1.1 APTT 27.1 PTT Ratio 1.0 Sodium (136-145) mmol/L Potassium (3.5-5.1) mmol/L Chloride (98-107) mmol/L Carbon Dioxide (21-32) mmol/L Anion Gap (3-11) BUN (7-18) mg/dl Creatinine (0.6-1.2) mg/dl Est Cr Clr Drug Dosing ml/min Est GFR ( Amer) Est GFR (Non-Af Amer) BUN/Creatinine Ratio (10-20) Glucose (70-99) mg/dl Lactate (0.4-2.0) mmol/L Calcium (8.5-10.1) mg/dl Magnesium (1.8-2.4) mg/dl Total Bilirubin (0.2-1) mg/dl AST (15-37) U/L ALT (12-78) U/L Alkaline Phosphatase (45-117) U/L Total Creatine Kinase (26-192) U/L CK-MB (CK-2) (0.5-3.6) ng/ml CK/CKMB % Calc (0-3.0) Troponin I (0-0.045) ng/ml C-Reactive Protein (0-0.29) mg/dl Total Protein (6.4-8.2) gm/dl Albumin (3.4-5.0) gm/dl Globulin (2.5-4.0) gm/dl Albumin/Globulin Ratio (0.9-2) Procalcitonin (0-0.5) ng/ml Urine Color Dark Yellow Urine Appearance Clear (Clear) Urine pH 5.0 (4.5-7.5) Ur Specific Wister 1.027 (1.000-1.030) Urine Protein Negative (Negative) Urine Glucose (UA) Negative (Negative) Urine Ketones 1+ H (Negative) Urine Blood Trace H (Negative) Urine Nitrite Positive A (Negative) Urine Bilirubin Negative (Negative) Urine Urobilinogen Negative (Negative) Ur Leukocyte Esterase Trace H (Negative) Urine WBC (Auto) 1-5 (0-5) /hpf Urine RBC (Auto) 0-4 (0-4) /hpf U Hyaline Cast (Auto) 1-5 (0-5) /lpf U Epithel Cells (Auto) 20-30 H (0-5) /lpf Urine Bacteria (Auto) 4+ H (Negative) Imaging Data Radiologist's Impression: Radiology results as stated below per my review and the radiologist's interpretation: XR chest 1V portable CLINICAL HISTORY: Sepsis dyspnea COMPARISON STUDY: 07/28/2017 FINDINGS: The bones soft tissues and hemidiaphragms are normal. The cardiomediastinal silhouette is normal. The lungs are clear. The pulmonary vasculature is normal. IMPRESSION: Negative chest. The above report was generated using voice recognition software. It may contain grammatical, syntax or spelling errors. Electronically signed by: Red Diallo M.D. 04/16/2019 7:56 PM XR pelvis 1-2V routine CLINICAL HISTORY: trauma pain COMPARISON: 08/01/2018 DISCUSSION: Considerable degenerative change of the hips as well as bony pelvis. No well-defined acute bony abnormality. Generalized osteopenia. No evidence for acetabular protrusion. There is no evidence for soft tissue swelling. IMPRESSION: Considerable degenerative change. Osteopenia. No acute process. The above report was generated using voice recognition software. It may contain grammatical, syntax or spelling errors. Electronically signed by: Red Diallo M.D. 04/16/2019 7:[address] head/brain wo con CT DOSE: HISTORY: Mental status change trauma TECHNIQUE: Multiaxial CT images of the head were performed without the use of intravenous contrast. A dose lowering technique was utilized adhering to the principles of ALARA. Comparison: None. Findings: The paranasal sinuses and mastoid air cells are clear. The calvarium and skull base are intact. The ventricles and sulci are within normal limits. There is no mass, hematoma, midline shift, or acute infarct. Age-related atrophy and chronic small vessel change Impression: No acute intracranial abnormality. Age-related change The above report was generated using voice recognition software. It may contain grammatical, syntax or spelling errors. Electronically signed by: Red Diallo M.D. 04/16/2019 8:[address] cervical spine wo con CT DOSE: 912.03 mGy.cm HISTORY: Trauma. trauma TECHNIQUE: Multiaxial CT images of the cervical spine were performed and reformatted in the sagittal and coronal plane without the use of contrast. A dose lowering technique was utilized adhering to the principles of ALARA. COMPARISON: None. FINDINGS: No fractures. No subluxation. Prevertebral soft tissues and the C1-C2 interval are intact. No pneumothorax. Generalized degenerative disc change IMPRESSION:: No fractures within the cervical spine. Generalized degenerative change The above report was generated using voice recognition software. It may contain grammatical, syntax or spelling errors. Electronically signed by: Rde Diallo M.D. 04/16/2019 8:56 PM ECG Data Attestation: I personally reviewed and interpreted this ECG as follows: Indication: altered mental status Rate (beats per minute): 89 Rhythm: normal sinus Findings: no PAC, no PVC and no ectopy Comparison ECG Date: from (07/28/17) Change: no significant change Blood Pressure Blood Pressure Findings: Elevated blood pressure Blood Pressure Disposition: further management by hospitalist SP Narrative The patient is an 83-year-old female who presented to the emergency department after being found on the floor by family members. The patient has some underlying dementia and it appears that she may have fallen on Monday evening. It is unsure how long she laid on the floor but she does have signs of pressure ulceration on her sacrum. The patient was hypothermic. She was treated with warming blankets. I discussed the patient's laboratory and radiographic studies with her as well as her family members. She was treated with IV fluids as well as IV antibiotics for presumed urinary tract infection. She was significantly improved on reevaluation. I discussed her case with the on-call [facility] hospitalist group. They have agreed to evaluate the patient in the emergency department for further management disposition. Impression & Plan Fall, Hypothermia, Pressure ulcer, Acute UTI, Rhabdomyolysis, Altered mental status, Acute GI bleeding Discharge Plan Visit Data *Final* Discharge Date/Time: 04/16/19 22:59 Chief Complaint: Fall Stated Complaint: FALL, AMS, ED Provider: Alej[place] Discharge Problem: Fall, Hypothermia, Pressure ulcer, Acute UTI, Rhabdomyolysis, Altered mental status, Acute GI bleeding Patient Disposition: Admitted As Inpatient Discharge Instructions Interventions: ED Discharge Assessment Last Done: 04/16/19 22:59 Discharge Problem: Fall Qualifiers: Encounter type: initial encounter Qualified Code(s): W19.XXXA - Unspecified fall, initial encounter Hypothermia Qualifiers: Encounter type: initial encounter Qualified Code(s): T68.XXXA - Hypothermia, initial encounter Pressure ulcer Qualifiers: Pressure injury location: unspecified location Pressure injury stage: unspecified pressure injury stage Qualified Code(s): L89.90 - Pressure ulcer of unspecified site, unspecified stage Rhabdomyolysis Qualifiers: Rhabdomyolysis type: traumatic Encounter type: initial encounter Qualified Code(s): T79.6XXA - Traumatic ischemia of muscle, initial encounter Altered mental status Qualifiers: Altered mental status type: unspecified Qualified Code(s): R41.82 - Altered mental status, unspecified The scribe's documentation has been prepared under my direction and personally reviewed by me in its entirety. I confirm that the note above accurately reflects all work, treatment, procedures, and medical decision making performed by me.
[2019-04-16 20:39] LABS: INR 1.1 (0.9-1.1); Partial Thromboplastin Time 27.1 Seconds (21.0-31.0); Prothrombin Time 11.2 Seconds (9.0-12.0)
[2019-04-16 20:46] LABS: Appearance Urine Clear (Clear); Bacteria Urine Automated 4+ (Negative); Bilirubin Urine Negative (Negative); Blood Urine Trace (Negative); Color Urine Dark Yellow; Epithelial Cell Urine Auto 20-30 /lpf (0-5); Glucose Urine UA Negative (Negative); Ketones Urine 1+ (Negative); Leukocyte Esterase Urine Trace (Negative); Nitrite Urine Positive (Negative); Protein Urine Negative (Negative); RBC Urine Automated 0-4 /hpf (0-4); Specific Gravity Urine 1.027 (1.000-1.030); Urobilinogen Urine Negative (Negative)
--- NOTE | 2019-04-16 20:55 | CT Scan Report ---
CT head/brain wo con CT DOSE: HISTORY: Mental status change trauma TECHNIQUE: Multiaxial CT images of the head were performed without the use of intravenous contrast. A dose lowering technique was utilized adhering to the principles of ALARA. Comparison: None. Findings: The paranasal sinuses and mastoid air cells are clear. The calvarium and skull base are int act. The ventricles and sulci are within normal limits. There is no mass, hematoma, midline shift, or acute infarct. Age-related atrophy and chronic small vessel change Impression: No acute intracranial abnormality. Age-related change The above report was generated using voice recognition software. It may contain grammatical, syntax or spelling errors. Electronically signed by: Red Diallo M.D. 04/16/2019 8:53 PM
--- NOTE | 2019-04-16 20:58 | CT Scan Report ---
CT cervical spine wo con CT DOSE: 912.03 mGy.cm HISTORY: Trauma. trauma TECHNIQUE: Multiaxial CT images of the cervical spine were performed and reformatted in the sagittal and coronal plane without the use of contrast. A dose lowering technique was utilized adhering to th e principles of ALARA. COMPARISON: None. FINDINGS: No fractures. No subluxation. Prevertebral soft tissues and the C1-C2 interval are intact. No pneumothorax. Generalized degenerative disc change IMPRESSION:: No fractures within the cervical spine. Generalized degenerative change The above report was generated using voice recognition software. It may contain grammatical, syntax or spelling errors. Electronically signed by: Red Diallo M.D. 04/16/2019 8:56 PM
[2019-04-16] MEDS ORDERED: SODIUM CHLORIDE 0.9% 1000ML 1,000 ML IV ONE (21:18)
[2019-04-16] MEDS ORDERED: FAMOTIDINE 20MG/5ML IV PUSH IV STA (21:18)
[2019-04-16] MEDS ORDERED: cefTRIAXone SODIUM 1,000 MG/50 ML BAG IV STA (21:18)
--- NOTE | 2019-04-16 22:03 | History & Physical Report ---
Date of Service April 16, 2019 Assessment & Plan (1) Fall: Patient status post fall, did not have any broken bones. She was laying down on the ground for what is presumed to be 2 to 3 days. She developed secondary rhabdomyolysis. She does have a UTI, which may have caused the fall or the result of the fall. The patient will need to have her living arrangements reassessed, as her sons know, and at the very least would likely need rehab after recovering from this event. Present on Admission?: Yes (2) Hypothermia: Resolved with warming in the ambulance on the way to the hospital Present on Admission?: Yes (3) Pressure ulcer: Patient was down on the floor for unknown interval time. We will consult wound care Present on Admission?: Yes (4) Acute UTI: Unclear if symptoms began because of UTI or the UTI was caused by her fal l. Follow urine culture and sensitivity. Continue ceftriaxone 1 g IV daily. Placed on NSS at 100 mils per hour. Present on Admission?: Yes (5) Rhabdomyolysis: CK upon admission 862, with creatinine 0.88. We will hydrate with IV fluids, and follow serially. Present on Admission?: Yes (6) Altered mental status: At this point again difficult to determine sequence of events. She at the very least has a metabolic encephalopathy secondary to UTI and dehydration. Present on Admission?: Yes History of Present Illness Chief Complaint: The patient presented to the emergency department after a fall, with altered mental state. Primary Care Provider: Krysta Perez MD See HPI and review of systems are somewhat limited due to patient's underlying dementia and altered mental state. The patient is an 83-year-old female who was found by her son at home on the floor. He had last seen her 3 days previously and she had been well at that time. She does live alone. The patient did tell EMS that she hit her head when she fell, and broke her favorite lamp. When EMS found the patient, she was covered in stool and urine and she initially was reported to be hypothermic and that she was transferred to the ED with the heat on in the ambulance, her temperature normalized. The patient's sons were there during the examination, and was able to substitute her background information as noted. Allergies Allergy/AdvReac Type Severity Reaction Status Date / Time No Known Allergies Allergy Verified 04/16/19 21:36 Home Medications Home Medications Medication Instructions Recorded Confirmed Type No Known Home Medications 04/16/19 04/16/19 History Past Med/Surg History Medical History Acute bronchitis (Resolved) Fall (Resolved) UTI (urinary tract infection) (Resolved) Weakness (Resolved) Surgical History No pertinent past surgical history Family History Other Cancer Heart disease Hypertension Social History Preferred Language: Wallisian Communication Ability: Impaired Communication Ability Comment: HX DEMENTIA Mr Teacher Required: No Beliefs That Will Affect Care: None Current Living Situation: Alone Other Information That Helps Us Care for You: No Feels Safe at Home: Yes Safety Concerns: Feels Safe At This Time Smoking Status: Never smoker Hx Alcohol Use: No Hx Substance Use: No Review of Systems Review of Systems: Unobtainable due to cognitive status Physical Exam Physical Exam: The patient is awake, responds no to all questions, scattered bruises, lying in bed and in no acute distress. HEENT--PERRL, EOMI, mucous membranes and oropharynx dry. Neck--supple. No JVD. No bruits. Thyroid normal, trachea midline, no adenopathy. Heart--normal S1 and S2. No murmurs, rubs or gallops. Lungs--clear bilaterally, no respiratory distress, no accessory muscle use. Abdomen--normal bowel sounds and soft. Nontender. Nondistended. Extremities--no cyanosis or clubbing. No edema. There are good distal pulses b/l. Dermatologic--scattered ecchymoses, with early pressure sores noted in sacral region Neurologic--cranial nerves II through XII grossly intact. Rheumatologic--normal range of motion. Psychiatric--normal affect. Results & Data Vital Signs (Past 12 Hours) Vital Signs Temp Pulse Pulse Resp BP BP Pulse Ox 04/16/19 20:39 90 18 135/84 99 04/16/19 19:58 99 04/16/19 19:51 95.2 F L 95 H 20 151/90 H 99 Laboratory Results Laboratory Results WBC 11.14 K/uL (4.8-10.8) H 04/16/19 18:59 RBC 5.31 M/uL (4.2-5.4) 04/16/19 18:59 Hgb 16.8 g/dL (12.0-16.0) H 04/16/19 18:59 Hct 48.6 % (37-47) H 04/16/19 18:59 MCV 91.5 fL (80-100) 04/16/19 18:59 MCH 31.6 pg (25-34) 04/16/19 18:59 MCHC 34.6 g/dL (32-36) 04/16/19 18:59 RDW Std Deviation 45.7 fL (36.4-46.3) 04/16/19 18:59 RDW Coeff of Sajan 13.7 % (11.5-14.5) 04/16/19 18:59 Plt Count 260 K/uL (130-400) 04/16/19 18:59 MPV 11.8 fL (7.4-10.4) H 04/16/19 18:59 Immature Gran % (Auto) 0.2 % 04/16/19 18:59 Neut % (Auto) 82.6 % 04/16/19 18:59 Lymph % (Auto) 7.6 % 04/16/19 18:59 Bay % (Auto) 9.4 % 04/16/19 18:59 Eos % (Auto) 0.1 % 04/16/19 18:59 Baso % (Auto) 0.1 % 04/16/19 18:59 Immature Gran # (Auto) 0.02 K/uL (0.00-0.02) 04/16/19 18:59 Neut # (Auto) 9.20 K/uL (1.4-6.5) H 04/16/19 18:59 Lymph # (Auto) 0.85 K/uL (1.2-3.4) L 04/16/19 18:59 Bay # (Auto) 1.05 K/uL (0.11-0.59) H 04/16/19 18:59 Eos # (Auto) 0.01 K/uL (0-0.5) 04/16/19 18:59 Baso # (Auto) 0.01 K/uL (0-0.2) 04/16/19 18:59 ESR 33 mm/hr (0-21) H 04/16/19 18:59 PT 11.2 Seconds (9.0-12.0) 04/16/19 20:18 INR 1.1 (0.9-1.1) 04/16/19 20:18 APTT 27.1 Seconds (21.0-31.0) 04/16/19 20:18 PTT Ratio 1.0 04/16/19 20:18 Sodium 141 mmol/L (136-145) 04/16/19 18:59 Potassium 3.8 mmol/L (3.5-5.1) 04/16/19 18:59 Chloride 105 mmol/L (98-107) 04/16/19 18:59 Carbon Dioxide 24 mmol/L (21-32) 04/16/19 18:59 Anion Gap 12.0 (3-11) H 04/16/19 18:59 BUN 47 mg/dl (7-18) H 04/16/19 18:59 Creatinine 0.88 mg/dl (0.6-1.2) 04/16/19 18:59 Est Cr Clr Drug Dosing 41.3 ml/min 04/16/19 18:59 Est GFR ( Amer) 70.9 04/16/19 18:59 Est GFR (Non-Af Amer) 61.2 04/16/19 18:59 BUN/Creatinine Ratio 53.1 (10-20) H 04/16/19 18:59 Glucose 111 mg/dl (70-99) H 04/16/19 18:59 Lactate 1.8 mmol/L (0.4-2.0) 04/16/19 20:01 Calcium 9.4 mg/dl (8.5-10.1) 04/16/19 18:59 Magnesium 2.3 mg/dl (1.8-2.4) 04/16/19 18:59 Total Bilirubin 1.4 mg/dl (0.2-1) H 04/16/19 18:59 AST 68 U/L (15-37) H 04/16/19 18:59 ALT 64 U/L (12-78) 04/16/19 18:59 Alkaline Phosphatase 85 U/L (45-117) 04/16/19 18:59 Total Creatine Kinase 862 U/L (26-192) H 04/16/19 18:59 CK-MB (CK-2) 17.8 ng/ml (0.5-3.6) H 04/16/19 18:59 CK/CKMB % Calc 2.1 (0-3.0) 04/16/19 18:59 Troponin I < 0.015 ng/ml (0-0.045) 04/16/19 18:59 C-Reactive Protein 3.90 mg/dl (0-0.29) H 04/16/19 18:59 Total Protein 7.4 gm/dl (6.4-8.2) 04/16/19 18:59 Albumin 3.6 gm/dl (3.4-5.0) 04/16/19 18:59 Globulin 3.8 gm/dl (2.5-4.0) 04/16/19 18:59 Albumin/Globulin Ratio 0.9 (0.9-2) 04/16/19 18:59 Procalcitonin 0.08 ng/ml (0-0.5) 04/16/19 18:59 Urine Color Dark Yellow 04/16/19 20:30 Urine Appearance Clear (Clear) 04/16/19 20:30 Urine pH 5.0 (4.5-7.5) 04/16/19 20:30 Ur Specific [place] 1.027 (1.000-1.030) 04/16/19 20:30 Urine Protein Negative (Negative) 04/16/19 20:30 Urine Glucose (UA) Negative (Negative) 04/16/19 20:30 Urine Ketones 1+ (Negative) H 04/16/19 20:30 Urine Blood Trace (Negative) H 04/16/19 20:30 Urine Nitrite Positive (Negative) A 04/16/19 20:30 Urine Bilirubin Negative (Negative) 04/16/19 20:30 Urine Urobilinogen Negative (Negative) 04/16/19 20:30 Ur Leukocyte Esterase Trace (Negative) H 04/16/19 20:30 Urine WBC (Auto) 1-5 /hpf (0-5) 04/16/19 20:30 Urine RBC (Auto) 0-4 /hpf (0-4) 04/16/19 20:30 U Hyaline Cast (Auto) 1-5 /lpf (0-5) 04/16/19 20:30 U Epithel Cells (Auto) 20-30 /lpf (0-5) H 04/16/19 20:30 Urine Bacteria (Auto) 4+ (Negative) H 04/16/19 20:30 Diagnostic Findings [facility] [place], [place] [phone] XRay Report Patient: RICH SOTO EAdmit Date: 04/16/19 MR#: [id number]: [address] [facility] Acct ID:[id number]: Date: 1935[facility] Zip: [place] [address] Age: 83Location: ED Sex: F Room/Bed: Att Phy:Diagnosis: FALL, AMS, Holly Phy: Krysta Perez, MDService Date: 04/16/19 Fam Phy:Interpreting Phy: Red Diallo MD Admit Phy: Ordering Phy: Alejandro Beach DO cc: ~ XR pelvis 1-2V routine CLINICAL HISTORY: trauma pain COMPARISON: 08/01/2018 DISCUSSION: Considerable degenerative change of the hips as well as bony pelvis. No well-defined acute bony abnormality. Generalized osteopenia. No evidence for acetabular protrusion. There is no evidence for soft tissue swelling. IMPRESSION: Considerable degenerative change. Osteopenia. No acute process. The above report was generated using voice recognition software. It may contain grammatical, syntax or spelling errors. Electronically signed by: Red Diallo M.D. 04/16/2019 7:59 PM Dictated: 04/16/191957 Transcribed: 04/16/191957 [facility], [place] [phone] CT Scan Report Patient: RICH SOTO EAdmit Date: 04/16/19 MR#: [id number]: [address] [facility] Acct ID:[id number]: Date: 1935[facility] Zip: [place] [address] Age: 83Location: ED Sex: F Room/Bed: Att Phy:Diagnosis: FALL, AMS, Holly Phy: Krysta Perez, MDService Date: 04/16/19 Fam Phy: Krysta Perez MDInterpreting Phy: Red Diallo MD Admit Phy: Ordering Phy: Alejandro Beach DO cc: ~ CT head/brain wo con CT DOSE: HISTORY: Mental status change trauma TECHNIQUE: Multiaxial CT images of the head were performed without the use of intravenous contrast. A dose lowering technique was utilized adhering to the principles of ALARA. Comparison: None. Findings: The paranasal sinuses and mastoid air cells are clear. The calvarium and skull base are intact. The ventricles and sulci are within normal limits. There is no mass, hematoma, midline shift, or acute infarct. Age-related atrophy and chronic small vessel change Impression: No acute intracranial abnormality. Age-related change The above report was generated using voice recognition software. It may contain grammatical, syntax or spelling errors. Electronically signed by: Red Diallo M.D. 04/16/2019 8:53 PM Dictated: 04/16/192051 Transcribed: 04/16/192051 [place], [place] [phone] CT Scan Report Patient: RICH SOTO EAdmit Date: 04/16/19 MR#: [id number]: [address] [facility] Acct ID:[id number]: Date: 1935City Zip: [place] [address] Age: 83Location: ED Sex: F Room/Bed: Att Phy:Diagnosis: FALL, AMS, Holly Phy: Krysta Perez, MDService Date: 04/16/19 [facility] Phy: Krysta Perez MDInterpreting Phy: Red Diallo MD Admit Phy: Ordering Phy: Alejandro Beach DO cc: ~ CT cervical spine wo con CT DOSE: 912.03 mGy.cm HISTORY: Trauma. trauma TECHNIQUE: Multiaxial CT images of the cervical spine were performed and reformatted in the sagittal and coronal plane without the use of contrast. A dose lowering technique was utilized adhering to the principles of ALARA. COMPARISON: None. FINDINGS: No fractures. No subluxation. Prevertebral soft tissues and the C1-C2 interval are intact. No pneumothorax. Generalized degenerative disc change IMPRESSION:: No fractures within the cervical spine. Generalized degenerative change The above report was generated using voice recognition software. It may contain grammatical, syntax or spelling errors. Electronically signed by: Red Diallo M.D. 04/16/2019 8:56 PM Dictated: 04/16/192053 Transcribed: 04/16/192053 [place], [place] [phone] XRay Report Patient: RICH SOTO Date: 04/16/19 MR#: [id number]: [address] [facility] Acct ID:[id number]: Date: 1935City Zip: [place] [address] Age: 83Location: ED Sex: F Room/Bed: Att Phy:Diagnosis: FALL, AMS, Holly Phy: Krysta Perez, MDService Date: 04/16/19 Fam Phy:Interpreting Phy: Red Diallo MD Admit Phy: Ordering Phy: Alejandro Beach DO cc: ~ XR chest 1V portable CLINICAL HISTORY: Sepsis dyspnea COMPARISON STUDY: 07/28/2017 FINDINGS: The bones soft tissues and hemidiaphragms are normal. The cardiomediastinal silhouette is normal. The lungs are clear. The pulmonary vasculature is normal. IMPRESSION: Negative chest. The above report was generated using voice recognition software. It may contain grammatical, syntax or spelling errors. Electronically signed by: Red Dialol M.D. 04/16/2019 7:56 PM Dictated: 04/16/191953 Transcribed: 04/16/191953 Code Status & VTE Plan Code Status Full code VTE Prophylaxis Plan VTE Prophylaxis will be ordered: Yes PG Care Time/CCT Total # of Minutes Spent Total Time Spent with Patient: Total time spent is greater than 50% in coordination of care (as documented) at patient's floor/unit and/or counseling patient: (1) Fall Encounter type: initial encounter Qualified Code(s): W19.XXXA - Unspecified fall, initial encounter (2) Hypothermia Encounter type: initial encounter Qualified Code(s): T68.XXXA - Hypothermia, initial encounter (3) Pressure ulcer Pressure injury location: unspecified location Pressure injury stage: unspecified pressure injury stage Qualified Code(s): L89.90 - Pressure ulcer of unspecified site, unspecified stage (4) Rhabdomyolysis Encounter type: initial encounter Rhabdomyolysis type: traumatic Qualified Code(s): T79.6XXA - Traumatic ischemia of muscle, initial encounter (5) Altered mental status Altered mental status type: unspecified Qualified Code(s): R41.82 - Altered mental status, unspecified
[2019-04-16] MEDS ORDERED: ALUMINUM/MAGNESIUM SUSP 30 ML UDC PO PRN (22:51)
[2019-04-16] MEDS ORDERED: MAGNESIUM HYDROXIDE SUSP 30 ML UDC PO PRN (22:51)
[2019-04-16] MEDS ORDERED: ONDANSETRON INJ 2 MG/ML 2 ML VIAL IV PRN (22:51)
[2019-04-16] MEDS ORDERED: POLYETHYLENE (MIRALAX) 17 GM PACK PO PRN (22:51)
[2019-04-16] MEDS: SODIUM CHLORIDE 0.9% 1000ML 1,000 ML IV SCH (23:22)
[2019-04-17 07:46] LABS: Basophils # (auto) 0.02 K/uL (0-0.2); Basophils % (auto) 0.2 %; Eosinophils # (auto) 0.02 K/uL (0-0.5); Eosinophils % (auto) 0.2 %; Hematocrit (blood only) 41.3 % (37-47); Hemoglobin 13.9 g/dL (12.0-16.0); Immature Granulocytes # (auto) 0.03 K/uL (0.00-0.02); Immature Granulocytes % (auto) 0.3 %; Lymphocytes # (auto) 1.31 K/uL (1.2-3.4); Lymphocytes % (auto) 14.6 %; Mean Corpuscular Hemoglobin 31.2 pg (25-34); Mean Corpuscular Hgb Conc 33.7 g/dL (32-36); Mean Corpuscular Volume 92.8 fL (80-100); Mean Platelet Volume 11.2 fL (7.4-10.4); Neutrophils % (auto) 74.7 %; Platelet Count 244 K/uL (130-400); RDW Coefficient of Variation 13.8 % (11.5-14.5); RDW Standard Deviation 46.8 fL (36.4-46.3); Red Blood Count 4.45 M/uL (4.2-5.4); White Blood Count 8.98 K/uL (4.8-10.8)
[2019-04-17] MEDS: HEPARIN SOD 5,000 UNIT/0.5 ML VIAL SQ SCH ×2 (07:47→21:20)
--- NOTE | 2019-04-17 08:11 | Family Medicine Progress Note ---
Date of Service April 17, 2019 Assessment & Plan (1) Fall: 83 yo F here after fall at home, found after being on the floor for 2-3 days. Fall / delirium / baseline mild dementia -CT head neg, labs mostly unremarkable -UA suspicious for possible UTI although was incontinent of stool and urine upon discovery Plan: -reorient, treat underlying metabolic issues including dehydration - fluid hydration, PO intake, and possible infectious source -UTI with rocephin, cultures pending -PT/OT working, weakness may be a chronic issue as pt and family endorse multiple falls at home - likely for SNF upon DC for rehab -CK not significantly elevated, kidney function remains robust, will continue to hydrate and follow BMP FEN/GI: diet, gentle fluids DVT ppx: heparin BID CODE STATUS: DNR/DNI - did discuss at length with closest kin Sons Marshal ([phone]) and Usama (on chart) - pt would not wish for extraordinary resuscitative measures. DISPO: for med/surg On no other chronic medicines. (2) Hypothermia: (3) Pressure ulcer: (4) Acute UTI: (5) Altered mental status: Supervising Physician Co-Signing Physician Notes I personally examined the patient and verified all frazier points of history and exam, discussed case, and agree with decision making with Dr Walsh. Seems to be feeling better. Quite confused. Son present. Dr. Walsh it already discussed with son extensively on the phone earlier as well, all questions answered to the best of our ability and to their satisfaction Vitals noted, in general she is awake and alert somewhat disoriented but pleasant no distress. HEENT normocephalic atraumatic mucous membranes may be slightly dry. Breathing unlabored no accessory muscle use good effort. Skin shows no rashes no pallor or icterus. Fall/weaknessfortunately no significant injuries. After further review/follow- up of CK, fortunately no significant rhabdomyolysis. Continue antibiotics, continue IV fluids. PT/OT eval and treat. Anticipate need for placement at least for now. stable for med surg Subjective upon my interview this morning pt is somewhat somnolent, not oriented to time. Is pleasant and conversant. Is tolerating PO. Denies any pain including chest pain, extremity pain, abdominal pain. Review of Systems Review of Systems: All systems reviewed & are unremarkable except as noted in HPI & below Physical Exam Physical Exam: Vitals noted and within normal limits GENERAL: Awake, alert to person, not to place or time, nontoxic-appearing, in no distress. Somnolent but arousable. HENT: Normocephalic, atraumatic. Mucus membranes appear dry. EYES: Normal conjunctiva. Sclera non-icteric. EOMI. NECK: Supple. Full range of motion. No JVD. RESPIRATORY: Clear to auscultation. Normal work of breathing. CARDIAC: Regular rate, normal rhythm. Extremities warm and well perfused, 2+ radial pulses bilaterally; ABDOMEN: Soft, non-distended. No tenderness to palpation in all four quadrants. Bowel sounds are normal. LOWER EXTREMITIES: Inspection of calves reveal equal size bilaterally. They are non-tender. No edema. No discoloration. NEURO: No gross focal motor deficits noted. Sensation in tact. CN II-XII grossly in tact. PSYCH: Appropriate mood and affect. Cooperative. Exam as done by Mary Walsh MD, Switchboard Manager. Results & Data Vital Signs (Past 12 Hours) Vital Signs Temp Pulse Pulse Resp BP BP Pulse Ox 04/17/19 05:01 36.7 C 75 0 L 95 04/17/19 00:04 86 04/16/19 23:32 36.6 C 87 19 154/70 H 97 04/16/19 22:59 37.1 C 88 18 148/69 H 98 04/16/19 20:39 90 18 135/84 99 Laboratory Results 04/17/19 04/17/19 04/16/19 Range/Units 07:08 07:08 20:30 WBC 8.98 (4.8-10.8) K/uL RBC 4.45 (4.2-5.4) M/uL Hgb 13.9 (12.0-16.0) g/dL Hct 41.3 (37-47) % MCV 92.8 (80-100) fL MCH 31.2 (25-34) pg MCHC 33.7 (32-36) g/dL RDW Std Deviation 46.8 H (36.4-46.3) fL RDW Coeff of Sajan 13.8 (11.5-14.5) % Plt Count 244 (130-400) K/uL MPV 11.2 H (7.4-10.4) fL Immature Gran % (Auto) 0.3 % Neut % (Auto) 74.7 % Lymph % (Auto) 14.6 % [place] % (Auto) 10.0 % Eos % (Auto) 0.2 % Baso % (Auto) 0.2 % Immature Gran # (Auto) 0.03 H (0.00-0.02) K/uL Neut # (Auto) 6.70 H (1.4-6.5) K/uL Lymph # (Auto) 1.31 (1.2-3.4) K/uL [place] # (Auto) 0.90 H (0.11-0.59) K/uL Eos # (Auto) 0.02 (0-0.5) K/uL Baso # (Auto) 0.02 (0-0.2) K/uL ESR (0-21) mm/hr PT INR APTT PTT Ratio Sodium 146 H (136-145) mmol/L Potassium 3.7 (3.5-5.1) mmol/L Chloride 113 H (98-107) mmol/L Carbon Dioxide 26 (21-32) mmol/L Anion Gap 6.0 (3-11) BUN 29 H (7-18) mg/dl Creatinine 0.67 (0.6-1.2) mg/dl Est Cr Clr Drug Dosing 56.7 ml/min Est GFR ( Amer) 94.9 Est GFR (Non-Af Amer) 81.9 BUN/Creatinine Ratio 43.5 H (10-20) Glucose 82 (70-99) mg/dl Lactate (0.4-2.0) mmol/L Calcium 8.4 L (8.5-10.1) mg/dl Magnesium (1.8-2.4) mg/dl Total Bilirubin 1.1 H (0.2-1) mg/dl AST 59 H (15-37) U/L ALT 52 (12-78) U/L Alkaline Phosphatase 67 (45-117) U/L Total Creatine Kinase 809 H (26-192) U/L CK-MB (CK-2) (0.5-3.6) ng/ml CK/CKMB % Calc (0-3.0) Troponin I (0-0.045) ng/ml C-Reactive Protein (0-0.29) mg/dl Total Protein 6.0 L (6.4-8.2) gm/dl Albumin 2.8 L (3.4-5.0) gm/dl Globulin 3.2 (2.5-4.0) gm/dl Albumin/Globulin Ratio 0.9 (0.9-2) Procalcitonin (0-0.5) ng/ml Urine Color Dark Yellow Urine Appearance Clear (Clear) Urine pH 5.0 (4.5-7.5) Ur Specific [place] 1.027 (1.000-1.030) Urine Protein Negative (Negative) Urine Glucose (UA) Negative (Negative) Urine Ketones 1+ H (Negative) Urine Blood Trace H (Negative) Urine Nitrite Positive A (Negative) Urine Bilirubin Negative (Negative) Urine Urobilinogen Negative (Negative) Ur Leukocyte Esterase Trace H (Negative) Urine WBC (Auto) 1-5 (0-5) /hpf Urine RBC (Auto) 0-4 (0-4) /hpf U Hyaline Cast (Auto) 1-5 (0-5) /lpf U Epithel Cells (Auto) 20-30 H (0-5) /lpf Urine Bacteria (Auto) 4+ H (Negative) 04/16/19 04/16/19 04/16/19 Range/Units 20:18 20:01 18:59 WBC (4.8-10.8) K/uL RBC (4.2-5.4) M/uL Hgb (12.0-16.0) g/dL Hct (37-47) % MCV (80-100) fL MCH (25-34) pg MCHC (32-36) g/dL RDW Std Deviation (36.4-46.3) fL RDW Coeff of Sajan (11.5-14.5) % Plt Count (130-400) K/uL MPV (7.4-10.4) fL Immature Gran % (Auto) % Neut % (Auto) % Lymph % (Auto) % [place] % (Auto) % Eos % (Auto) % Baso % (Auto) % Immature Gran # (Auto) (0.00-0.02) K/uL Neut # (Auto) (1.4-6.5) K/uL Lymph # (Auto) (1.2-3.4) K/uL [place] # (Auto) (0.11-0.59) K/uL Eos # (Auto) (0-0.5) K/uL Baso # (Auto) (0-0.2) K/uL ESR (0-21) mm/hr PT 11.2 INR 1.1 APTT 27.1 PTT Ratio 1.0 Sodium 141 (136-145) mmol/L Potassium 3.8 (3.5-5.1) mmol/L Chloride 105 (98-107) mmol/L Carbon Dioxide 24 (21-32) mmol/L Anion Gap 12.0 H (3-11) BUN 47 H (7-18) mg/dl Creatinine 0.88 (0.6-1.2) mg/dl Est Cr Clr Drug Dosing 41.3 ml/min Est GFR ( Amer) 70.9 Est GFR (Non-Af Amer) 61.2 BUN/Creatinine Ratio 53.1 H (10-20) Glucose 111 H (70-99) mg/dl Lactate 1.8 (0.4-2.0) mmol/L Calcium 9.4 (8.5-10.1) mg/dl Magnesium 2.3 (1.8-2.4) mg/dl Total Bilirubin 1.4 H (0.2-1) mg/dl AST 68 H (15-37) U/L ALT 64 (12-78) U/L Alkaline Phosphatase 85 (45-117) U/L Total Creatine Kinase 862 H (26-192) U/L CK-MB (CK-2) 17.8 H (0.5-3.6) ng/ml CK/CKMB % Calc 2.1 (0-3.0) Troponin I < 0.015 (0-0.045) ng/ml C-Reactive Protein 3.90 H (0-0.29) mg/dl Total Protein 7.4 (6.4-8.2) gm/dl Albumin 3.6 (3.4-5.0) gm/dl Globulin 3.8 (2.5-4.0) gm/dl Albumin/Globulin Ratio 0.9 (0.9-2) Procalcitonin (0-0.5) ng/ml Urine Color Urine Appearance (Clear) Urine pH (4.5-7.5) Ur Specific [place] (1.000-1.030) Urine Protein (Negative) Urine Glucose (UA) (Negative) Urine Ketones (Negative) Urine Blood (Negative) Urine Nitrite (Negative) Urine Bilirubin (Negative) Urine Urobilinogen (Negative) Ur Leukocyte Esterase (Negative) Urine WBC (Auto) (0-5) /hpf Urine RBC (Auto) (0-4) /hpf U Hyaline Cast (Auto) (0-5) /lpf U Epithel Cells (Auto) (0-5) /lpf Urine Bacteria (Auto) (Negative) 04/16/19 04/16/19 04/16/19 Range/Units 18:59 18:59 18:59 WBC 11.14 H (4.8-10.8) K/uL RBC 5.31 (4.2-5.4) M/uL Hgb 16.8 H (12.0-16.0) g/dL Hct 48.6 H (37-47) % MCV 91.5 (80-100) fL MCH 31.6 (25-34) pg MCHC 34.6 (32-36) g/dL RDW Std Deviation 45.7 (36.4-46.3) fL RDW Coeff of Sajan 13.7 (11.5-14.5) % Plt Count 260 (130-400) K/uL MPV 11.8 H (7.4-10.4) fL Immature Gran % (Auto) 0.2 % Neut % (Auto) 82.6 % Lymph % (Auto) 7.6 % [place] % (Auto) 9.4 % Eos % (Auto) 0.1 % Baso % (Auto) 0.1 % Immature Gran # (Auto) 0.02 (0.00-0.02) K/uL Neut # (Auto) 9.20 H (1.4-6.5) K/uL Lymph # (Auto) 0.85 L (1.2-3.4) K/uL [place] # (Auto) 1.05 H (0.11-0.59) K/uL Eos # (Auto) 0.01 (0-0.5) K/uL Baso # (Auto) 0.01 (0-0.2) K/uL ESR 33 H (0-21) mm/hr PT Cancelled INR Cancelled APTT Cancelled PTT Ratio Cancelled Sodium (136-145) mmol/L Potassium (3.5-5.1) mmol/L Chloride (98-107) mmol/L Carbon Dioxide (21-32) mmol/L Anion Gap (3-11) BUN (7-18) mg/dl Creatinine (0.6-1.2) mg/dl Est Cr Clr Drug Dosing ml/min Est GFR ( Amer) Est GFR (Non-Af Amer) BUN/Creatinine Ratio (10-20) Glucose (70-99) mg/dl Lactate (0.4-2.0) mmol/L Calcium (8.5-10.1) mg/dl Magnesium (1.8-2.4) mg/dl Total Bilirubin (0.2-1) mg/dl AST (15-37) U/L ALT (12-78) U/L Alkaline Phosphatase (45-117) U/L Total Creatine Kinase (26-192) U/L CK-MB (CK-2) (0.5-3.6) ng/ml CK/CKMB % Calc (0-3.0) Troponin I (0-0.045) ng/ml C-Reactive Protein (0-0.29) mg/dl Total Protein (6.4-8.2) gm/dl Albumin (3.4-5.0) gm/dl Globulin (2.5-4.0) gm/dl Albumin/Globulin Ratio (0.9-2) Procalcitonin (0-0.5) ng/ml Urine Color Urine Appearance (Clear) Urine pH (4.5-7.5) Ur Specific [place] (1.000-1.030) Urine Protein (Negative) Urine Glucose (UA) (Negative) Urine Ketones (Negative) Urine Blood (Negative) Urine Nitrite (Negative) Urine Bilirubin (Negative) Urine Urobilinogen (Negative) Ur Leukocyte Esterase (Negative) Urine WBC (Auto) (0-5) /hpf Urine RBC (Auto) (0-4) /hpf U Hyaline Cast (Auto) (0-5) /lpf U Epithel Cells (Auto) (0-5) /lpf Urine Bacteria (Auto) (Negative) 04/16/19 Range/Units 18:59 WBC (4.8-10.8) K/uL RBC (4.2-5.4) M/uL Hgb (12.0-16.0) g/dL Hct (37-47) % MCV (80-100) fL MCH (25-34) pg MCHC (32-36) g/dL RDW Std Deviation (36.4-46.3) fL RDW Coeff of Sajan (11.5-14.5) % Plt Count (130-400) K/uL MPV (7.4-10.4) fL Immature Gran % (Auto) % Neut % (Auto) % Lymph % (Auto) % [place] % (Auto) % Eos % (Auto) % Baso % (Auto) % Immature Gran # (Auto) (0.00-0.02) K/uL Neut # (Auto) (1.4-6.5) K/uL Lymph # (Auto) (1.2-3.4) K/uL [place] # (Auto) (0.11-0.59) K/uL Eos # (Auto) (0-0.5) K/uL Baso # (Auto) (0-0.2) K/uL ESR (0-21) mm/hr PT INR APTT PTT Ratio Sodium (136-145) mmol/L Potassium (3.5-5.1) mmol/L Chloride (98-107) mmol/L Carbon Dioxide (21-32) mmol/L Anion Gap (3-11) BUN (7-18) mg/dl Creatinine (0.6-1.2) mg/dl Est Cr Clr Drug Dosing ml/min Est GFR ( Amer) Est GFR (Non-Af Amer) BUN/Creatinine Ratio (10-20) Glucose (70-99) mg/dl Lactate (0.4-2.0) mmol/L Calcium (8.5-10.1) mg/dl Magnesium (1.8-2.4) mg/dl Total Bilirubin (0.2-1) mg/dl AST (15-37) U/L ALT (12-78) U/L Alkaline Phosphatase (45-117) U/L Total Creatine Kinase (26-192) U/L CK-MB (CK-2) (0.5-3.6) ng/ml CK/CKMB % Calc (0-3.0) Troponin I (0-0.045) ng/ml C-Reactive Protein (0-0.29) mg/dl Total Protein (6.4-8.2) gm/dl Albumin (3.4-5.0) gm/dl Globulin (2.5-4.0) gm/dl Albumin/Globulin Ratio (0.9-2) Procalcitonin 0.08 (0-0.5) ng/ml Urine Color Urine Appearance (Clear) Urine pH (4.5-7.5) Ur Specific [place] (1.000-1.030) Urine Protein (Negative) Urine Glucose (UA) (Negative) Urine Ketones (Negative) Urine Blood (Negative) Urine Nitrite (Negative) Urine Bilirubin (Negative) Urine Urobilinogen (Negative) Ur Leukocyte Esterase (Negative) Urine WBC (Auto) (0-5) /hpf Urine RBC (Auto) (0-4) /hpf U Hyaline Cast (Auto) (0-5) /lpf U Epithel Cells (Auto) (0-5) /lpf Urine Bacteria (Auto) (Negative) Medications Administered Current Inpatient Medications Acetaminophen (Tylenol) 650 mg PO Q4H PRN PRN Reason: Pain or Fever Stop: 05/16/19 22:50 Al Hydrox/Mg Hydrox/Simethicone (Maalox) 15 ml PO Q4H PRN PRN Reason: Dyspepsia Stop: 05/16/19 22:50 Heparin Sodium (Porcine) (Heparin Sodium (Porcine)) 5,000 units SQ Q12 [place] Stop: 05/17/19 08:59 Last Admin: 04/17/19 07:47 Dose: 5,000 units Documented by: Ceftriaxone Sodium 1,000 mg/ (Dextrose) 50 mls @ 100 mls/hr IV Q24H [facility]; Protocol Stop: 04/25/19 21:29 Potassium Chloride/Sodium Chloride (1/2 Nss + 20meq Kcl 1000ml) 20 meq in 1,000 mls @ 80 mls/hr IV .[id number] [facility] Stop: 05/17/19 16:14 Last Admin: 04/17/19 16:45 Dose: 80 mls/hr Documented by: Magnesium Hydroxide (Milk Of Magnesia) 30 ml PO Q12H PRN PRN Reason: Constipation Stop: 05/16/19 22:50 Ondansetron HCl (Zofran) 4 mg IV Q6H PRN PRN Reason: Nausea Stop: 05/16/19 22:50 Polyethylene Glycol (Miralax Powder Packet) 17 gm PO DAILY PRN PRN Reason: Constipation Stop: 05/16/19 22:50 PG Care Time/CCT Total # of Minutes Spent Total Time Spent with Patient: Total time spent is greater than 50% in coordination of care (as documented) at patient's floor/unit and/or counseling patient: Resident Activity Tracking Resident Involvement: Resident Care Provided Care Provided: Adult Hospital Medicine (1) Hypothermia Encounter type: initial encounter Qualified Code(s): T68.XXXA - Hypothermia, initial encounter (2) Altered mental status Altered mental status type: unspecified Qualified Code(s): R41.82 - Altered mental status, unspecified (3) Pressure ulcer Pressure injury location: unspecified location Pressure injury stage: unspecified pressure injury stage Qualified Code(s): L89.90 - Pressure ulcer of unspecified site, unspecified stage (4) Fall Encounter type: initial encounter Qualified Code(s): W19.XXXA - Unspecified fall, initial encounter
[2019-04-17 08:22] LABS: Albumin Globulin Ratio 0.9 (0.9-2); Albumin Level 2.8 gm/dl (3.4-5.0); BUN Creatinine Ratio 43.5 (10-20); Bilirubin,Total 1.1 mg/dl (0.2-1); Calcium 8.4 mg/dl (8.5-10.1); Creatinine Clr Calc Pharmacy 56.7 ml/min; Est GFR (African American) 94.9; Est GFR (Non-African American) 81.9; Globulin 3.2 gm/dl (2.5-4.0); Potassium 3.7 mmol/L (3.5-5.1)
[2019-04-17] MEDS: SODIUM CHLORIDE 0.9% 1000ML 1,000 ML IV SCH (08:49)
[2019-04-17] MEDS: SODIUM CHLOR 0.45% + 20MEQ KCL 20 MEQ/1,000 ML BAG IV SCH (16:45)
[2019-04-17] MEDS ORDERED: cefTRIAXone SODIUM 1,000 MG in DEXTROSE 5% 50 ML IV SCH (21:00)
[2019-04-18] MEDS: SODIUM CHLOR 0.45% + 20MEQ KCL 20 MEQ/1,000 ML BAG IV SCH (05:08)
[2019-04-18] MEDS: HEPARIN SOD 5,000 UNIT/0.5 ML VIAL SQ SCH ×2 (07:40→21:04)
[2019-04-18 08:13] LABS: Hemoglobin 12.5 g/dL (12.0-16.0); Mean Corpuscular Hemoglobin 31.6 pg (25-34); Mean Corpuscular Hgb Conc 33.8 g/dL (32-36); Mean Corpuscular Volume 93.4 fL (80-100); Nucleated RBC # (auto) 0.05 K/uL (0-0); Nucleated RBC % (auto) 0.9 %; Platelet Count 177 K/uL (130-400); RDW Coefficient of Variation 13.8 % (11.5-14.5); RDW Standard Deviation 47.4 fL (36.4-46.3); Red Blood Count 3.96 M/uL (4.2-5.4); White Blood Count 5.85 K/uL (4.8-10.8)
[2019-04-18 08:15] LABS: Basophils # (auto) 0.03 K/uL (0-0.2); Basophils % (auto) 0.5 %; Eosinophils # (auto) 0.17 K/uL (0-0.5); Eosinophils % (auto) 2.9 %; Immature Granulocytes # (auto) 0.03 K/uL (0.00-0.02); Immature Granulocytes % (auto) 0.5 %; Lymphocytes # (auto) 1.45 K/uL (1.2-3.4); Lymphocytes % (auto) 24.8 %; Monocytes # (auto) 0.64 K/uL (0.11-0.59); Monocytes % (auto) 10.9 %; Neutrophils # (auto) 3.53 K/uL (1.4-6.5); Neutrophils % (auto) 60.4 %
[2019-04-18 09:06] LABS: BUN Creatinine Ratio 24.6 (10-20); Calcium 8.2 mg/dl (8.5-10.1); Creatinine Clr Calc Pharmacy 66.6 ml/min; Est GFR (African American) 100.1; Est GFR (Non-African American) 86.3; Potassium 3.5 mmol/L (3.5-5.1)
--- NOTE | 2019-04-18 10:24 | Family Medicine Progress Note ---
Date of Service April 18, 2019 Assessment & Plan (1) Fall: 83 yo F here after fall at home, found after being on the floor for 2-3 days. Fall / delirium / baseline mild dementia -CT head neg, labs mostly unremarkable -UA suspicious for possible UTI although was incontinent of stool and urine upon discovery Plan: -reorient, treat underlying metabolic issues including dehydration - PO intake, and possible infectious source -UTI treated with IV rocephin - minor urinary symptoms, e coli is pansensitive, will switch to po keflex today for short course. -PT/OT working, weakness may be a chronic issue as pt and family endorse multiple falls at home - likely for SNF upon DC for rehab -CK not significantly elevated, kidney function remains robust, will continue to hydrate and follow BMP FEN/GI: diet, good PO intake so will dc fluids. DVT ppx: heparin BID CODE STATUS: DNR/DNI - did discuss at length with closest kin Sons Marshal ([phone]) and Usama (on chart) - pt would not wish for extraordinary resuscitative measures. DISPO: for med/surg On no other chronic medicines. (2) Hypothermia: (3) Pressure ulcer: (4) Acute UTI: (5) Altered mental status: Supervising Physician Co-Signing Physician Notes I personally examined the patient and verified all frazier points of history and exam, discussed case, and agree with decision making with Dr Walsh. Seems to be feeling better. Also seems a bit more lucid. Discussed rehab plans. Vitals noted, in general she is awake and alert somewhat disoriented but pleasant no distress. HEENT normocephalic atraumatic mucous membranes may be slightly dry. Breathing unlabored no accessory muscle use good effort. Skin shows no rashes no pallor or icterus. Fall/weaknessfortunately no significant injuries. After further review/follow- up of CK, fortunately no significant rhabdomyolysis. Continue current care. Work towards SNF with a rehab goal. Incontinence associated dermatitis of the sacrumlocal skin care Foot ulcer of left footlocal care hopefully SNF/rehab soon Subjective sitting up in bed, tolerating PO, working with PT/OT, conversational, no acute events overnight Review of Systems Review of Systems: All systems reviewed & are unremarkable except as noted in HPI & below Physical Exam Physical Exam: Vitals noted and reviewed, as above GENERAL: no acute distress HEAD: normocephalic atraumatic ENT: sclerae normal, trachea midline RESP: normal work of breathing CV: regular rate and rhythm ABDOMEN: nondistended SKIN: no rashes or jaundice PSYCH: appropriate mood and affect Results & Data Vital Signs (Past 12 Hours) Vital Signs Temp Pulse Resp BP Pulse Ox 04/18/19 08:04 37.0 C 74 18 136/73 97 04/17/19 23:25 36.8 C 65 18 129/68 96 Laboratory Results 04/18/19 04/18/19 Range/Units 06:40 06:37 WBC 5.85 (4.8-10.8) K/uL RBC 3.96 L (4.2-5.4) M/uL Hgb 12.5 (12.0-16.0) g/dL Hct 37.0 (37-47) % MCV 93.4 (80-100) fL MCH 31.6 (25-34) pg MCHC 33.8 (32-36) g/dL RDW Std Deviation 47.4 H (36.4-46.3) fL RDW Coeff of Sajan 13.8 (11.5-14.5) % Plt Count 177 (130-400) K/uL MPV 11.0 H (7.4-10.4) fL Immature Gran % (Auto) 0.5 % Neut % (Auto) 60.4 % Lymph % (Auto) 24.8 % [place] % (Auto) 10.9 % Eos % (Auto) 2.9 % Baso % (Auto) 0.5 % Immature Gran # (Auto) 0.03 H (0.00-0.02) K/uL Neut # (Auto) 3.53 (1.4-6.5) K/uL Lymph # (Auto) 1.45 (1.2-3.4) K/uL [place] # (Auto) 0.64 H (0.11-0.59) K/uL Eos # (Auto) 0.17 (0-0.5) K/uL Baso # (Auto) 0.03 (0-0.2) K/uL Absolute Nucleated RBC 0.05 H (0-0) K/uL Nucleated RBC % (auto) 0.9 % Sodium 142 (136-145) mmol/L Potassium 3.5 (3.5-5.1) mmol/L Chloride 111 H (98-107) mmol/L Carbon Dioxide 26 (21-32) mmol/L Anion Gap 6.0 (3-11) BUN 14 D (7-18) mg/dl Creatinine 0.57 L (0.6-1.2) mg/dl Est Cr Clr Drug Dosing 66.6 ml/min Est GFR ( Amer) 100.1 Est GFR (Non-Af Amer) 86.3 BUN/Creatinine Ratio 24.6 H (10-20) Glucose 82 (70-99) mg/dl Calcium 8.2 L (8.5-10.1) mg/dl Medications Administered Current Inpatient Medications Acetaminophen (Tylenol) 650 mg PO Q4H PRN PRN Reason: Pain or Fever Stop: 05/16/19 22:50 Al Hydrox/Mg Hydrox/Simethicone (Maalox) 15 ml PO Q4H PRN PRN Reason: Dyspepsia Stop: 05/16/19 22:50 Cephalexin HCl (Keflex) 500 mg PO BID [place] Stop: 04/23/19 10:29 Heparin Sodium (Porcine) (Heparin Sodium (Porcine)) 5,000 units SQ Q12 [place] Stop: 05/17/19 08:59 Last Admin: 04/18/19 07:40 Dose: 5,000 units Documented by: Magnesium Hydroxide (Milk Of Magnesia) 30 ml PO Q12H PRN PRN Reason: Constipation Stop: 05/16/19 22:50 Ondansetron HCl (Zofran) 4 mg IV Q6H PRN PRN Reason: Nausea Stop: 05/16/19 22:50 Polyethylene Glycol (Miralax Powder Packet) 17 gm PO DAILY PRN PRN Reason: Constipation Stop: 05/16/19 22:50 PG Care Time/CCT Total # of Minutes Spent Total Time Spent with Patient: Total time spent is greater than 50% in coordination of care (as documented) at patient's floor/unit and/or counseling patient: Resident Activity Tracking Resident Involvement: Resident Care Provided Care Provided: Adult Hospital Medicine (1) Hypothermia Encounter type: initial encounter Qualified Code(s): T68.XXXA - Hypothermia, initial encounter (2) Altered mental status Altered mental status type: unspecified Qualified Code(s): R41.82 - Altered mental status, unspecified (3) Pressure ulcer Pressure injury location: unspecified location Pressure injury stage: unspecified pressure injury stage Qualified Code(s): L89.90 - Pressure ulcer of unspecified site, unspecified stage (4) Fall Encounter type: initial encounter Qualified Code(s): W19.XXXA - Unspecified fall, initial encounter
[2019-04-18] MEDS: cephALEXin 500 MG CAP PO SCH ×2 (11:51→21:04)
[2019-04-18] MEDS: MICONAZOLE NITRATE POWDER 43 GM EXT SCH (21:04)
[2019-04-19] MEDS: ACETAMINOPHEN 325 MG TAB PO PRN ×2 (05:18→20:44)
[2019-04-19] MEDS ORDERED: KETOROLAC TROMETHAMINE 15 MG/ML VIAL IV ONE (05:33)
[2019-04-19] MEDS: cephALEXin 500 MG CAP PO SCH ×2 (08:48→20:44)
[2019-04-19] MEDS: MICONAZOLE NITRATE POWDER 43 GM EXT SCH ×2 (09:02→20:45)
[2019-04-19] MEDS: HEPARIN SOD 5,000 UNIT/0.5 ML VIAL SQ SCH ×2 (09:03→20:44)
--- NOTE | 2019-04-19 17:26 | Hospitalist Progress Note ---
Date of Service April 19, 2019 Assessment & Plan (1) Fall: Fortunately no significant trauma. After further review, no significant rhabdomyolysis, as her CPK was only mildly elevated given the circumstances. She definitely has weakness, and does not appear that she would be safe at home. Seems to show a degree of metabolic encephalopathy, although it is difficult to tease this apart from how much his baseline dementia, although the sons have noted that she is not yet at her baseline. Certainly her presentation fits with both. (2) Hypothermia: Resolved with warming in the ambulance on the way to the hospital, likely was simply from exposure (3) Pressure ulcer: Has sacral skin breakdown that seems to be more incontinence related, as well as a foot ulcer. Local skin care. (4) Acute UTI: Related to fall, although cause and effect are somewhat difficult to discern. No sepsis. Finish out course of Keflex. (5) Altered mental status: Metabolic encephalopathy superimposed on baseline dementia seems most likely, but without having a good understanding of her baseline other than what the family is describing it is not clear. Supervising Physician Co-Signing Physician Notes Fall/weaknessfortunately no significant injuries. After further review/follow- up of CK, fortunately no significant rhabdomyolysis. Continue current care. Work towards SNF with a rehab goal. Incontinence associated dermatitis of the sacrumlocal skin care Foot ulcer of left footlocal care hopefully SNF/rehab soon Subjective No medical complaints. Seems to be a bit more paranoid about what is going on. Eating well. Upset with her sons for "doing this to me" although she does not seem to be able to clarify what. Tried to update patient on plans as best as possible. Review of Systems Review of Systems: All systems reviewed & are unremarkable except as noted in HPI & below Physical Exam Physical Exam: General she is awake and alert although seems to be more disoriented no distress. She is just finished breakfast and has an orange all over her face and front. HEENT normocephalic atraumatic mucous members moist. Breathing unlabored no accessory muscle use good effort. Neuro shows cranial nerves II through XII be grossly intact gross motor and sensory intact no focal neuro deficits. Skin shows no rashes, no pallor, no icterus. Results & Data Vital Signs (Past 12 Hours) Vital Signs Temp Pulse Pulse Pulse Resp BP BP 04/19/19 14:56 97.2 F L 65 18 134/74 09/20/19 11:07 97.5 F L 68 16 144/75 H 04/19/19 07:10 97.9 F 62 18 133/70 04/19/19 06:25 73 173/61 H Pulse Ox 04/19/19 14:56 96 04/19/19 11:07 99 04/19/19 07:10 99 04/19/19 06:25 PG Care Time/CCT Total # of Minutes Spent Total Time Spent with Patient: Total time spent is greater than 50% in coordination of care (as documented) at patient's floor/unit and/or counseling patient: (1) Fall Encounter type: initial encounter Qualified Code(s): W19.XXXA - Unspecified fall, initial encounter (2) Hypothermia Encounter type: initial encounter Qualified Code(s): T68.XXXA - Hypothermia, initial encounter (3) Pressure ulcer Pressure injury location: unspecified location Pressure injury stage: unspecified pressure injury stage Qualified Code(s): L89.90 - Pressure ulcer of unspecified site, unspecified stage (4) Altered mental status Altered mental status type: unspecified Qualified Code(s): R41.82 - Altered mental status, unspecified
[2019-04-20] MEDS: cephALEXin 500 MG CAP PO SCH (08:53)
[2019-04-20] MEDS: MICONAZOLE NITRATE POWDER 43 GM EXT SCH (08:53)
[2019-04-20] MEDS: HEPARIN SOD 5,000 UNIT/0.5 ML VIAL SQ SCH (08:54)
--- NOTE | 2019-04-20 13:06 | Discharge Summary ---
Date of Service April 20, 2019 Admission HPI Per Admitting Provider See HPI and review of systems are somewhat limited due to patient's underlying dementia and altered mental state. The patient is an 83-year-old female who was found by her son at home on the floor. He had last seen her 3 days previously and she had been well at that time. She does live alone. The patient did tell EMS that she hit her head when she fell, and broke her favorite lamp. When EMS found the patient, she was covered in stool and urine and she initially was reported to be hypothermic and that she was transferred to the ED with the heat on in the ambulance, her temperature normalized. The patient's sons were there during the examination, and was able to substitute her background information as noted. Admission Exam Per Admitting Provider The patient is awake, responds no to all questions, scattered bruises, lying in bed and in no acute distress. HEENT--PERRL, EOMI, mucous membranes and oropharynx dry. Neck--supple. No JVD. No bruits. Thyroid normal, trachea midline, no adenopathy. Heart--normal S1 and S2. No murmurs, rubs or gallops. Lungs--clear bilaterally, no respiratory distress, no accessory muscle use. Abdomen--normal bowel sounds and soft. Nontender. Nondistended. Extremities--no cyanosis or clubbing. No edema. There are good distal pulses b/l. Dermatologic--scattered ecchymoses, with early pressure sores noted in sacral region Neurologic--cranial nerves II through XII grossly intact. Rheumatologic--normal range of motion. Psychiatric--normal affect. Principal Diagnosis Altered mental status to 2/2 dementia and UTI Discharge Exam General: Awake, sitting up in chair, alert. Follows one and two-step commands. Oriented to name and building, is not oriented to year or city. Skin is warm and dry. HEENT: Atraumatic, normocephalic. Pulm: Grossly CTAB A&P. -wheezes, -rales, -rhonchi. Symmetrical chest rise. No increase work of breathing. No respiratory distress. Cardiac: RRR, -mrg. Radial pulses intact and symmetrical. Abdominal: Nontender, nondistended, soft. BS present. Discharge Data Allergies Allergy/AdvReac Type Severity Reaction Status Date / Time No Known Allergies Allergy Verified 04/16/19 21:36 Consultations 04/16/19 21:39 ED Decision to Admit Stat 04/16/19 22:51 Consult Case Management - Discharge Planning Routine Ordered Studies 04/16/19 19:33 CT cervical spine wo con Stat CT head/brain wo con Stat Hospital Course (1) Altered mental status: Mckenna is an 83-year-old female with a past medical history of dementia who was found down at home by her son. She lives alone, last known well was 3 days prior to admission and was admitted for hypothermia in the fall. Altered mental status and chronic dementia Mrs. Marrero has a history of chronic baseline dementia, but has lived alone at home up until her current presentation. She was found down by her son with last known well 3 days prior, and reported to emergency medical services that she did hit her head when she fell. She does not recall why she fell. On EMS arrival she was incontinent of urine and stool and hypothermic. During transport she was treated with warm blankets by EMS. On arrival to the hospital she was treated with IV fluids and received an empiric dose of Rocephin which was narrowed to amoxicillin for E. coli UTI as below. Head CT showed no acute findings, and CT cervical spine, pelvis x-ray, and chest x-ray showed no acute findings. Her mental status progressively improved, and she was mentating well at time of discharge. Underlying dementia was prominent. She was discharged to SNF for rehab with long-term placement pending her clinical course. Hypothermia Patient was hypothermic to 35.1C on arrival to the hospital following treatment with warm blankets. She was treated with fluids and for infection, and was given warm blankets and her hypothermia resolved. Acute UTI On admission Mckenna was found to have an elevated white count to 11.14. Urinalysis showed nitrates, trace leukocyte esterase, trace blood, and 4+ bacteria. She was treated initially with empiric Rocephin narrowed to Keflex. Urine culture revealed pansensitive E. coli. She was discharged with 2 addition al days to complete a 5-day total course of Keflex 500 mg p.o. twice daily. Her leukocytosis resolved by discharge. She did not have any urinary symptoms including dysuria or increased urinary frequency at time of discharge. Abdomen was benign, no CVA tenderness was observed. Pressure ulcer Patient was noted to have sacral skin breakdown and a foot ulcer treated on admission. Grade 12 sacral ulcer bilateral left greater than right, with a width of about 6 cm suggestive of chronic breakdown from incontinence. No signs of cellulitis were observed, local wound care provided. Severe deconditioning Following admission patient was seen by PT/OT for evaluation due to her fall and deconditioning. She is found to have a 6 clicks total score of 17 with a 43% functional mobility loss. She was noted to be progressing, but the tire easily. SNF with less than 3 hours of combined daily therapy was recommended. Patient was discharged to [facility] ([place] for rehab and further care. DVT prophylaxis DVT prophylaxis was maintained with 5000 units of heparin subcu every 12 hours (2) Fall: (3) Pressure ulcer: (4) Acute UTI: (5) Fall: (6) UTI (urinary tract infection): Total Time Total Time Spent Total Time Spent (In Minutes): <30 Discharge Plan Discharge Items Patient Disposition: Transfer [facility] Reason For Visit: UTI,RHABDOMYOLYSIS Discharge Diagnosis: Metabolic encephalopathy 2/2 UTI Activity: Per Instructions section Non-emergency contact: Primary Care Provider Call non-emergency contact if: you have any medication questions, your symptoms worsen, your pain is not controlled, your pain is worsening, your pain is unusual for you and your pain is concerning for you Follow-up/Referrals: Krysta Perez MD [Primary Care Provider] - Diet: Regular Addtl Attending Provider Instructions: Mckenna was seen in the hospital after she was found down. She is admitted for metabolic encephalopathy with associated UTI. She was treated with supportive care and Keflex and recovered well. She is being discharged to [facility] ([place] for rehab and further care. She was deconditioned but at her cognitive baseline at time of discharge. She did not have clinically significant rhabdomyolysis and had adequate kidney function during admission without elevation of creatinine. Mckenna has been prescribed an antibiotic, Keflex. Please continue Keflex 500 mg twice daily by mouth for 2 more days to complete a total 5-day course of treatment. If she develops any fevers, chills, worsening diarrhea, rash, throat swelling, or to the breathing please have her evaluated by the facility physician, or call 911 if you are very concerned. Mckenna should have a follow-up appointment scheduled with her primary care physician Dr. Perez following evaluation and intake at [facility] ([place] If loss develops any new or worsening symptoms including worsening pain, fever, chills, difficulty breathing, abdominal pain, altered mental status, chest pain, rash, or other symptoms please have her evaluated by the facility physician or call 911 if you are very concerned. Pending Studies at Discharge: No Stand-Alone Forms: My [employer] Skilled Items Patient informed of condition?: Yes DNR: Yes Discharge Level of Care: Skilled Communicable Disease: No Discharge Prognosis: Improving Lines: None Urinary Catheter: No Medications and DC Order Prescriptions: New cephalexin 500 mg Capsule 500 mg PO BID 2 Days Qty: 4 RF: 0 No Action No Known Home Medications RF: 0 Discharge Orders: Discharge Order (Routine); Ordered 04/20/19 Ordered By: Jean Paul Eugene Admission Data Admit Date/Time: 04/16/19 22:02 Attending Provider: Ray Mukherjee Admit Provider: Stewart Harry Primary Care Provider: Krysta Perez Other Providers: Stewart Harry Other Interventions: Discharge Summary Assessment (RN) Last Done: 04/20/19 11:12 DC Date/Time DO NOT enter until pt leaves facility: 04/20/19 15:12 Supervising Physician Co-Signing Physician Notes I personally examined the patient and verified all frazier points of history and exam, discussed case, and agree with decision making with Dr Eugene. no new issues, stable for SNF today. vitals noted nad breathing unlabored no pallor or icterus Fall/weaknessfortunately no significant injuries. After further review/follow- up of CK, fortunately no significant rhabdomyolysis. stable for discharge to SNF with a rehab goal. Incontinence associated dermatitis of the sacrumlocal skin care Foot ulcer of left footlocal care othewrise as above Resident Activity Tracking Resident Involvement: Resident Care Provided Care Provided: Adult Hospital Medicine
== END 2019-04-20 15:12 | DRG 689 ==
LOC: ED 19:23 → 2S 22:02 → SUATTDRO 22:02 → 2S 22:59 → 3W 04-17 19:25

== ENCOUNTER 2020-09-26 08:59 | Observation (INO) ==
[2020-09-26] MEDS ORDERED: SODIUM CHLORIDE 0.9% 1000ML 500 ML IV ONE (09:18)
[2020-09-26] MEDS ORDERED: ACETAMINOPHEN 1000 MG/100 ML IV IV STA (09:26)
--- NOTE | 2020-09-26 09:34 | Emergency Department Note ---
Impression & Plan Acute head trauma, Facial contusion, Pain of right leg, Weakness, Fall ED Provider Note NAME: RICH SOTO AGE: 84 SEX: F : 1935 ARRIVES VIA: Ambulance INFORMANT: [Patient][nursing, ems] ED PROVIDER(S): [Anthony Reed MD] CHIEF COMPLAINT: Fall HISTORY OF PRESENT ILLNESS: The patient is an 84-year-old female who apparently, fell sometime last night. She was seen by staff at [facility] at 11:30 PM and found to have a contusion about the right eye. She seemed otherwise okay. Nobody witnessed a fall. The patient this morning had a lot more swelling around the right eye and was sent for evaluation. She presents by ambulance. She complains of some right eye pain. With movement, her right hip seems slightly painful. She is not on blood thinners The patient denies any chest pain or shortness of breath. She has no abdominal pain. She denies any neck pain. Patient cannot recall falling. The patient is a poor historian. She has some dementia, no further history obtainable. Most of the history was actually obtained from the EMS and nursing staff. REVIEW OF SYSTEMS: Unobtainable given her mental state/dementia. PMHx/PSHx: See Below SOCIAL HISTORY: See Below. PHYSICAL EXAM: GENERAL: Patient is in no acute distress. HEENT: She has a large hematoma about the right eye, this has caused the lids to swell the eye closed. The globe though appears uninjured when the lids are held open. There is no hyphema. The pupil is round and equal to the opposite side in size. Extraocular muscles seem intact. I do not feel any obvious bony step- off about the right face or around the right eye. The nose is stable. The bite is normal. No scalp hematomas. NECK: No stridor, no adenopathy, nontender posterior C-spine, trachea is midline. LUNGS: Clear to auscultation bilaterally, no wheeze, no rhonchi, breath sounds equal. HEART: Slight systolic murmur, regular rate and rhythm. ABDOMEN: Soft, nontender, bowel sounds positive, no hernias, no peritonitis. EXTREMITIES: No cyanosis or edema. There is some minimal pain to move the right hip. No gross deformity. No contusion seen. The right hip does not seem painful with palpation. NEUROLOGIC: Awake and alert, no acute motor or sensory deficits, no focal weakness. SKIN: No rash, no jaundice, no diaphoresis. DIFFERENTIAL DIAGNOSIS: Fracture, dislocation, contusion, intra-abdominal bleeding, pneumothorax, intrathoracic injury, intracranial injury, compartment syndrome, rhabdomyolysis, as well as other pathologies. EMERGENCY DEPARTMENT COURSE/PROCEDURES: ECG: Indication was fall. The ECG shows a normal sinus rhythm with a rate of 69. There is some nonspecific ST change. The QTc is 437. There are no PVCs, no ST elevation. Continuous Cardiac Monitoring: An order was placed for continuous cardiac monitoring. The monitor shows a rate of 66 with normal sinus rhythm. MEDICAL DECISION MAKING: There is no leukocytosis or concerning anemia. There is a normal platelet count. ECG shows a sinus rhythm, no acute ischemia. Cardiac enzyme testing is not consistent with acute cardiac injury. No significant electrolyte abnormality or kidney failure. No worrisome liver enzyme elevation. Urinalysis does not show evidence for infection. Brain CT shows no acute bleed or mass- effect. C-spine CT shows no acute fracture. Facial CT shows no acute fracture. Chest film does not show pneumonia or CHF. Pelvis and right hip films were performed, there was no fracture by plain film. Films of the right femur was performed, there was no fracture. A CT of the right hip was done, there was no acute fracture. The patient received IV Tylenol for pain. She was given IV saline, 500 cc. The patient will not walk. Typically, she is very active with a walker. She would not bear weight on her right leg. She seems sleepy and is not very interactive. She apparently is not at her mental baseline. I do not think the patient is safe for discharge back to [facility]. Her mental status decline may be secondary to the head trauma. She is unwilling to bear weight on the right leg and likely needs some PT and OT. She needs some rehab to get her back to her baseline ambulatory status. I did speak with the patient, she is currently resting and states that she is hungry, a meal has been ordered. I did speak with case management, the on-call hospitalist has been consulted. Past Med/Surg History Medical History Dementia Impaired fasting glucose Osteoporosis Surgical History (Updated 11/14/19 @ 16:20 by Daphne Silvestre LPN) History of cholecystectomy History of cystoscopy History of palate surgery Previous section (10/17/12) Family History (Updated 11/14/19 @ 16:21 by Daphne Silvestre LPN) Other Cancer Heart disease Hypertension Stroke Social History Smoking Status: Never smoker Hx Alcohol Use: No Hx Substance Use: No Preferred Language: Nicaraguan Communication Ability: Impaired Shafting Cleaner Required: No Beliefs That Will Affect Care: None marital status: / Current Living Situation: Alone Feels Safe at Home: Yes Assistive Devices: Walker Allergies Allergies Allergy/AdvReac Type Severity Reaction Status Date / Time No Known Allergies Allergy Verified 09/26/20 13:34 Home Meds Home Medications Medication Instructions Recorded Confirmed alendronate 70 mg PO WK 09/26/20 09/26/20 cholecalciferol (vitamin D3) 25 mcg PO QAM 09/26/20 09/26/20 mineral oil-hydrophil petrolat 1 applic TOPICAL TID PRN 09/26/20 09/26/20 [Aquaphor] naproxen sodium [Aleve] 220 mg PO Q8H PRN 09/26/20 09/26/20 nitrofurantoin monohyd/m-cryst 100 mg PO BID 09/26/20 09/26/20 Results & Data (ED) Vital Signs Vital Signs - 24 hr 09/26/20 09:00 09/26/20 09:09 09/26/20 11:41 Temperature 36.3 C L Temperature Source Oral Pulse Rate 66 Pulse Rate [Left] 65 Pulse Rhythm [Left] Regular Pulse Strength [Left] Normal Respiratory Rate 12 18 Respiratory Effort / Characteristics Non-Labored Non-Labored Spontaneous Respiratory Depth Normal Normal Respiratory Pattern Blood Pressure 155/70 H Blood Pressure [Left Arm] 171/76 H Blood Pressure Mean 98 Blood Pressure Mean [Left Arm] 107 Blood Pressure Position [Left Arm] Lying Pulse Oximetry 95 96 96 Oxygen Delivery Method Room Air Room Air Room Air Sepsis Recent Fever Within 48 Hours No Sepsis New/Unexplained Change in Mental Status N/A Sepsis Action Taken by Nursing No Action Required 09/26/20 14:55 Temperature Temperature Source Pulse Rate Pulse Rate [Left] 55 L Pulse Rhythm [Left] Regular Pulse Strength [Left] Normal Respiratory Rate 18 Respiratory Effort / Characteristics Non-Labored Spontaneous Respiratory Depth Normal Respiratory Pattern Regular Blood Pressure Blood Pressure [Left Arm] 161/86 H Blood Pressure Mean Blood Pressure Mean [Left Arm] 111 Blood Pressure Position [Left Arm] Lying Pulse Oximetry 97 Oxygen Delivery Method Room Air Sepsis Recent Fever Within 48 Hours Sepsis New/Unexplained Change in Mental Status Sepsis Action Taken by [facility] Medications Current Medication List: was personally reviewed by me Laboratory Data Attestation: I reviewed the patient's lab results. Result diagrams: 09/26/20 10:00 09/26/20 10:00 Lab Results 09/26/20 09/26/20 09/26/20 Range/Units 10:00 10:00 11:39 WBC 6.31 (4.8-10.8) K/uL RBC 4.52 (4.2-5.4) M/uL Hgb 14.3 (12.0-16.0) g/dL Hct 42.5 (37-47) % MCV 94.0 (80-100) fL MCH 31.6 (25-34) pg MCHC 33.6 (32-36) g/dL RDW Std Deviation 47.3 H (36.4-46.3) fL RDW Coeff of Sajan 13.6 (11.5-14.5) % Plt Count 206 (130-400) K/uL MPV 10.6 H (7.4-10.4) fL Immature Gran % (Auto) 0.3 % Neut % (Auto) 64.4 % Lymph % (Auto) 17.7 % Newberry % (Auto) 9.7 % Eos % (Auto) 7.4 % Baso % (Auto) 0.5 % Neut # (Auto) 4.06 (1.4-6.5) K/uL Lymph # (Auto) 1.12 L (1.2-3.4) K/uL Newberry # (Auto) 0.61 H (0.11-0.59) K/uL Eos # (Auto) 0.47 (0-0.5) K/uL Baso # (Auto) 0.03 (0-0.2) K/uL Immature Gran # (Auto) 0.02 (0.00-0.02) K/uL Sodium 142 (136-145) mmol/L Potassium 3.9 (3.5-5.1) mmol/L Chloride 111 H (98-107) mmol/L Carbon Dioxide 26 (21-32) mmol/L Anion Gap 5.0 (3-11) BUN 13 (7-18) mg/dl Creatinine 0.70 (0.6-1.2) mg/dl Est Cr Clr Drug Dosing Not Reportable Est GFR ( Amer) 92.9 Est GFR (Non-Af Amer) 80.1 BUN/Creatinine Ratio 17.9 (10-20) Glucose 90 (70-99) mg/dl Calcium 9.2 (8.5-10.1) mg/dl Magnesium 2.2 (1.8-2.4) mg/dl Total Bilirubin 0.5 (0.2-1) mg/dl AST 25 (15-37) U/L ALT 32 (12-78) U/L Alkaline Phosphatase 81 (45-117) U/L Troponin I < 0.015 (0-0.045) ng/ml Total Protein 7.0 (6.4-8.2) gm/dl Albumin 3.4 (3.4-5.0) gm/dl Globulin 3.6 (2.5-4.0) gm/dl Albumin/Globulin Ratio 1.0 (0.9-2) Urine Color Yellow Urine Appearance Clear (Clear) Urine pH 6.5 (4.5-7.5) Ur Specific [place] 1.017 (1.000-1.030) Urine Protein Negative (Negative) Urine Glucose (UA) Negative (Negative) Urine Ketones Trace H (Negative) Urine Blood Negative (Negative) Urine Nitrite Negative (Negative) Urine Bilirubin Negative (Negative) Urine Urobilinogen Negative (Negative) Ur Leukocyte Esterase Negative (Negative) Administered Medications Discontinued Medications Acetaminophen (Acetaminophen 1000 Mg/100 Ml Iv) 1,000 mg IV NOW STA Stop: 09/26/20 09:27 Last Admin: 09/26/20 10:20 Dose: 1,000 mg Documented by: [id number] Sodium Chloride (Nss 1000ml) 500 mls @ 999 mls/hr IV .Q31M ONE Stop: 09/26/20 09:48 Last Infusion: 09/26/20 10:39 Dose: 0 mls/hr Documented by: [id number] Admin: 09/26/20 10:06 Dose: 999 mls/hr Documented by: [id number] Imaging Data Radiologist's Impression: CT SCAN OF THE BRAIN WITHOUT IV CONTRAST CLINICAL HISTORY: Trauma. Fall COMPARISON STUDY: CT of the brain dated 04/16/2019. TECHNIQUE: Unenhanced axial CT scan of the brain is performed from the vertex to the skull base. A dose lowering technique was utilized adhering to the principles of ALARA. FINDINGS: Brain parenchyma: There are age-related involutional changes noting moderate confluent subcortical and periventricular microangiopathic change. There is no hemorrhage, mass effect, or evidence of acute territorial ischemia by CT criteria. Hendricks-white matter differentiation is preserved. No extra-axial fluid collection is seen. Ventricles, sulci, cisterns: Prominent secondary to involutional change. Intracranial vasculature: There is atherosclerotic calcification of the cavernou s carotid and vertebral arteries. Calvarium: The skeletal structures are osteopenic. There is no depressed calvarial fracture. Soft tissues: There is right frontal and periorbital scalp hematoma. Sinuses and mastoids: The paranasal sinuses are clear. The mastoid air cells are well pneumatized. Orbits: The bony orbits are grossly intact. There are bilateral ocular lens implants. IMPRESSION: 1. There is no hemorrhage, mass effect, or evidence of acute territorial ischemia by CT criteria. 2. Right frontal and periorbital soft tissue hematoma. CT SCAN OF THE FACIAL BONES WITHOUT IV CONTRAST CLINICAL HISTORY: Fall. Facial injury. COMPARISON STUDY: CT of the brain performed concurrently on 09/26/2020. TECHNIQUE: High-resolution CT scan of the facial bones is performed. Images are reviewed in the axial, sagittal, and coronal planes. IV contrast was not administered for this examination. A dose lowering technique was utilized adhering to the principles of ALARA. FINDINGS: There is right frontal and periorbital soft tissue hematoma. The skeletal structures are osteopenic. There is no evidence of facial bone fracture. The bony orbits are intact and the orbital contents are within normal limits noting bilateral ocular lens implants. The zygomatic arches, nasal bones, and pterygoid plates are preserved. There is chronic appearing deformity of the anterior maxilla. The maxilla and mandible are otherwise intact. There are no layering blood products within the paranasal sinuses. There is a right mastoid effusion. A left mastoid air cells and the paranasal sinuses are clear. The visualized calvarium and upper cervical spine are maintained. Partially imaged brain parenchyma is within normal limits noting age-related involutional change. IMPRESSION: 1. There is no evidence of facial bone fracture. 2. Right frontal and periorbital soft tissue hematoma. CT SCAN OF THE CERVICAL SPINE CLINICAL HISTORY: Fall. Head injury. COMPARISON STUDY: CT of the cervical spine dated 04/16/2019. TECHNIQUE: CT scan of the cervical spine is performed from the skull base to the upper thoracic spine. Images are reviewed in the axial, sagittal, and coronal planes. IV contrast was not administered for this examination. A dose lowering technique was utilized adhering to the principles of ALARA. CT DOSE: 987.23 mGy.cm FINDINGS: Skeletal structures: The skeletal structures are osteopenic. There is no evidence of fracture or subluxation involving the cervical spine. Vertebral body height is maintained. There is minimal anterolisthesis at C3-C4. Alignment is otherwise preserved. Anterior osteophytes are noted in the lower cervical spine. The odontoid process and lateral masses are intact. The atlantoaxial articulation is preserved noting productive degenerative change. The spinous processes appear intact. There is moderate multilevel cervical spondylosis. Uncovertebral and facet arthropathy contribute to neural foraminal narrowing at several levels. Intervertebral discs: There is moderate disc space narrowing at C6-C7 and C7-T1. Mild disc space narrowing is seen at the remaining cervical levels. Central canal: Posterior disc osteophyte complexes at C5-C6 and C6-C7 may contribute to acquired compromise of the central canal. Soft tissues: The prevertebral and paraspinous soft tissues are within normal limits. There is atherosclerotic calcification of the carotid bulbs. Calvarium: The visualized calvarium at the skull base appears intact. Brain parenchyma: Partially visualized brain parenchyma at the skull base is within normal limits. Sinuses and mastoids: The visualized paranasal sinuses are clear. There is a right mastoid effusion. The left mastoid air cells are well pneumatized. Lung apices: Clear as visualized. IMPRESSION: 1. There is no evidence of fracture or subluxation involving the cervical spine. 2. Osteopenia and spondylotic change as above. SINGLE VIEW CHEST CLINICAL HISTORY: Fall. FINDINGS: An AP, portable, upright chest radiograph is compared to study dated 04/16/2019. The examination is degraded by portable technique and patient rotation. The cardiomediastinal silhouette is unremarkable noting at herosclerotic calcification of the thoracic aorta. Chronic interstitial thickening is similar to previous. There is bibasilar atelectasis. There is a questionable 1.6 cm nodular density projecting over the right lung base overlying the fifth rib. No airspace consolidation, large pleural effusion, or pneumothorax is seen. The skeletal structures are osteopenic. The bony thorax is grossly intact. Degenerative changes noted in the shoulders and thoracic spine. Cholecystectomy clips are seen in the right upper quadrant. IMPRESSION: 1. No acute cardiopulmonary abnormality. 2. Question a 1.6 cm nodular density projecting over the right lung base. This overlies a rib ending and may be artifactual. Follow-up with a dedicated PA and lateral examination is recommended for reassessment.. SINGLE VIEW PELVIS; 2 VIEWS RIGHT HIP CLINICAL HISTORY: Fall with right hip pain. FINDINGS: An AP view of the pelvis with AP and frog-leg views of the right hip are compared to study dated 04/16/2019. The skeletal structures are osteopenic. There is no radiographic evidence of acute fracture involving the hips or bony pelvis. Mild degenerative joint space narrowing is noted in the hips. Lumbosacral spondylosis is partially visualized. The sacroiliac joints are normal. Advanced atherosclerotic calcification is noted in the femoral arteries. The overlying soft tissues are within normal limits. Phleboliths are seen in the pelvis. IMPRESSION: No acute bony abnormality is identified. CT SCAN OF THE RIGHT HIP WITHOUT IV CONTRAST CLINICAL HISTORY: Fall with right hip pain. COMPARISON STUDY: Radiographs of the pelvis and right hip dated 09/26/2020. TECHNIQUE: CT scan of the right hip is performed from the bony pelvis to the proximal femur. Images are reviewed in the axial, sagittal, and coronal planes. IV contrast was not administered for this examination. A dose lowering technique was utilized adhering to the principles of ALARA. CT DOSE: 325.84 mGy.cm FINDINGS: The skeletal structures are osteopenic. There is no radiographic evidence of fracture involving the right hip or the visualized right hemipelvis. No lytic or blastic lesion is seen. Mild degenerative joint space narrowing seen in the right hip. There is no evidence of avascular necrosis of the right femoral head. No joint effusion is identified. There is mild generalized atrophy of the regional musculature. The overlying soft tissues are normal as imaged. No hematoma is seen. There is atherosclerotic calcification of the right femoral artery. The bladder is normal as visualized. There is no right pelvic sidewall or inguinal adenopathy. Question a 3.7 cm cystic right adnexal lesion. IMPRESSION: 1. No acute bony abnormality is identified. 2. Question a 3.7 cm cystic lesion in the right adnexa. This is only partially visualized. A pelvic ultrasound is recommended for further assessment. RIGHT FEMUR 3 VIEWS CLINICAL HISTORY: Right leg pain. FINDINGS: AP, frog-leg, and lateral views of the right femur are correlated with radiographs and CT of the right hip performed the same day 09/26/2020. The skeletal structures are osteopenic. There is no radiographic evidence of femoral fracture. The visualized right hemipelvis appears intact. The hip and knee joints are grossly maintained. There is advanced atherosclerotic calcification of the right femoral artery. The overlying soft tissues are normal in appearance. IMPRESSION: There is no radiographic evidence of right femoral fracture. Head Trauma GCS Score: 14 Discharge Plan Visit Data Chief Complaint: Fall ED Provider: Anthony Reed Discharge Problem: Acute head trauma, Facial contusion, Pain of right leg, Weakness, Fall Patient Disposition: Admitted As Inpatient Condition: Fair Forms [facility] Pres[facility] Prescriptions: No Action Aquaphor Ointment 1 applic TOPICAL TID PRN (Reason: Skin Irritation) RF: 0 cholecalciferol (vitamin D3) 25 mcg (1,000 unit) Capsule 25 mcg PO QAM RF: 0 nitrofurantoin monohyd/m-cryst 100 mg capsule 100 mg PO BID RF: 0 naproxen sodium [Aleve] 220 mg Capsule 220 mg PO Q8H PRN (Reason: Pain) RF: 0 alendronate 70 mg tablet 70 mg PO WK RF: 0 Referrals Referrals: Krysta Perez MD [Primary Care Provider] - Discharge Problem: Acute head trauma Qualifiers: Encounter type: initial encounter Qualified Code(s): S09.90XA - Unspecified injury of head, initial encounter Facial contusion Qualifiers: Encounter type: initial encounter Qualified Code(s): S00.83XA - Contusion of other part of head, initial encounter Fall Qualifiers: Encounter type: initial encounter Qualified Code(s): W19.XXXA - Unspecified fall, initial encounter
--- NOTE | 2020-09-26 09:56 | CT Scan Report ---
CT SCAN OF THE BRAIN WITHOUT IV CONTRAST CLINICAL HISTORY: Trauma. Fall COMPARISON STUDY: CT of the brain dated 04/16/2019. TECHNIQUE: Unenhanced axial CT scan of the brain is performed from the vertex to the skull base. A do se lowering technique was utilized adhering to the principles of ALARA. FINDINGS: Brain parenchyma: There are age-related involutional changes noting moderate confluent subcortical a nd periventricular microangiopathic change. There is no hemorrhage, mass effect, or evidence of acute territorial ischemia by CT criteria. Hendricks-white matter differentiation is preserved. No extra-axial fluid collection is seen. Ventricles, sulci, cisterns: Prominent secondary to involutional change. Intracranial vasculature: There is atherosclerotic calcification of the cavernous carotid and vertebr al arteries. Calvarium: The skeletal structures are osteopenic. There is no depressed calvarial fracture. Soft tissues: There is right frontal and periorbital scalp hematoma. Sinuses and mastoids: The paranasal sinuses are clear. The mastoid air cells are well pneumatized. Orbits: The bony orbits are grossly intact. There are bilateral ocular lens implants. IMPRESSION: 1. There is no hemorrhage, mass effect, or evidence of acute territorial ischemia by CT criteria. 2. Right frontal and periorbital soft tissue hematoma. ACT 112: Negative or not required by law. Electronically signed by: Anthony Leary M.D. 09/26/2020 9:54 AM
--- NOTE | 2020-09-26 10:03 | CT Scan Report ---
CT SCAN OF THE CERVICAL SPINE CLINICAL HISTORY: Fall. Head injury. COMPARISON STUDY: CT of the cervical spine dated 04/16/2019. TECHNIQUE: CT scan of the cervical spine is performed from the skull base to the upper thoracic spine . Images are reviewed in the axial, sagittal, and coronal planes. IV contrast was not administered fo r this examination. A dose lowering technique was utilized adhering to the principles of ALARA. CT DOSE: 987.23 mGy.cm FINDINGS: Skeletal structures: The skeletal structures are osteopenic. There is no evidence of fracture or subl uxation involving the cervical spine. Vertebral body height is maintained. There is minimal anterolis thesis at C3-C4. Alignment is otherwise preserved. Anterior osteophytes are noted in the lower cervic al spine. The odontoid process and lateral masses are intact. The atlantoaxial articulation is preser radha noting productive degenerative change. The spinous processes appear intact. There is moderate mul tilevel cervical spondylosis. Uncovertebral and facet arthropathy contribute to neural foraminal narr owing at several levels. Intervertebral discs: There is moderate disc space narrowing at C6-C7 and C7-T1. Mild disc space narr owing is seen at the remaining cervical levels. Central canal: Posterior disc osteophyte complexes at C5-C6 and C6-C7 may contribute to acquired comp romise of the central canal. Soft tissues: The prevertebral and paraspinous soft tissues are within normal limits. There is athero sclerotic calcification of the carotid bulbs. Calvarium: The visualized calvarium at the skull base appears intact. Brain parenchyma: Partially visualized brain parenchyma at the skull base is within normal limits. Sinuses and mastoids: The visualized paranasal sinuses are clear. There is a right mastoid effusion. The left mastoid air cells are well pneumatized. Lung apices: Clear as visualized. IMPRESSION: 1. There is no evidence of fracture or subluxation involving the cervical spine. 2. Osteopenia and spondylotic change as above. ACT 112: Negative or not required by law. Electronically signed by: Anthony Leary M.D. 09/26/2020 10:02 AM
[2020-09-26 10:10] LABS: Basophils # (auto) 0.03 K/uL (0-0.2); Basophils % (auto) 0.5 %; Eosinophils # (auto) 0.47 K/uL (0-0.5); Eosinophils % (auto) 7.4 %; Hematocrit (blood only) 42.5 % (37-47); Hemoglobin 14.3 g/dL (12.0-16.0); Immature Granulocytes # (auto) 0.02 K/uL (0.00-0.02); Immature Granulocytes % (auto) 0.3 %; Lymphocytes # (auto) 1.12 K/uL (1.2-3.4); Lymphocytes % (auto) 17.7 %; Mean Corpuscular Hemoglobin 31.6 pg (25-34); Mean Corpuscular Hgb Conc 33.6 g/dL (32-36); Mean Platelet Volume 10.6 fL (7.4-10.4); Monocytes # (auto) 0.61 K/uL (0.11-0.59); Monocytes % (auto) 9.7 %; Neutrophils # (auto) 4.06 K/uL (1.4-6.5); Neutrophils % (auto) 64.4 %; Platelet Count 206 K/uL (130-400); RDW Coefficient of Variation 13.6 % (11.5-14.5); RDW Standard Deviation 47.3 fL (36.4-46.3); Red Blood Count 4.52 M/uL (4.2-5.4); White Blood Count 6.31 K/uL (4.8-10.8)
--- NOTE | 2020-09-26 10:14 | CT Scan Report ---
CT SCAN OF THE FACIAL BONES WITHOUT IV CONTRAST CLINICAL HISTORY: Fall. Facial injury. COMPARISON STUDY: CT of the brain performed concurrently on 09/26/2020. TECHNIQUE: High-resolution CT scan of the facial bones is performed. Images are reviewed in the axia l, sagittal, and coronal planes. IV contrast was not administered for this examination. A dose lower ing technique was utilized adhering to the principles of ALARA. FINDINGS: There is right frontal and periorbital soft tissue hematoma. The skeletal structures are os teopenic. There is no evidence of facial bone fracture. The bony orbits are intact and the orbital co ntents are within normal limits noting bilateral ocular lens implants. The zygomatic arches, nasal pippa ludwin, and pterygoid plates are preserved. There is chronic appearing deformity of the anterior maxilla . The maxilla and mandible are otherwise intact. There are no layering blood products within the para nasal sinuses. There is a right mastoid effusion. A left mastoid air cells and the paranasal sinuses are clear. The visualized calvarium and upper cervical spine are maintained. Partially imaged brain p arenchyma is within normal limits noting age-related involutional change. IMPRESSION: 1. There is no evidence of facial bone fracture. 2. Right frontal and periorbital soft tissue hematoma. ACT 112: Negative or not required by law. Electronically signed by: Anthony Leary M.D. 09/26/2020 10:12 AM
--- NOTE | 2020-09-26 10:19 | XRay Report ---
SINGLE VIEW PELVIS; 2 VIEWS RIGHT HIP CLINICAL HISTORY: Fall with right hip pain. FINDINGS: An AP view of the pelvis with AP and frog-leg views of the right hip are compared to study dated 04/16/2019. The skeletal structures are osteopenic. There is no radiographic evidence of acute f racture involving the hips or bony pelvis. Mild degenerative joint space narrowing is noted in the hi ps. Lumbosacral spondylosis is partially visualized. The sacroiliac joints are normal. Advanced ather osclerotic calcification is noted in the femoral arteries. The overlying soft tissues are within norm al limits. Phleboliths are seen in the pelvis. IMPRESSION: No acute bony abnormality is identified. Electronically signed by: Anthony Leary M.D. 09/26/2020 10:17 AM
--- NOTE | 2020-09-26 10:21 | XRay Report ---
SINGLE VIEW CHEST CLINICAL HISTORY: Fall. FINDINGS: An AP, portable, upright chest radiograph is compared to study dated 04/16/2019. The examina tion is degraded by portable technique and patient rotation. The cardiomediastinal silhouette is un remarkable noting atherosclerotic calcification of the thoracic aorta. Chronic interstitial thickenin g is similar to previous. There is bibasilar atelectasis. There is a questionable 1.6 cm nodular dens ity projecting over the right lung base overlying the fifth rib. No airspace consolidation, large ple ural effusion, or pneumothorax is seen. The skeletal structures are osteopenic. The bony thorax is gr ossly intact. Degenerative changes noted in the shoulders and thoracic spine. Cholecystectomy clips a re seen in the right upper quadrant. IMPRESSION: 1. No acute cardiopulmonary abnormality. 2. Question a 1.6 cm nodular density projecting over the right lung base. This overlies a rib ending and may be artifactual. Follow-up with a dedicated PA and lateral examination is recommended for reas sessment.. ACT 112: Positive. There are findings on this exam that require communication between the performing entity and the patient following Patient Test Result Information Act ([place] Act 112) guidelines. Electronically signed by: Anthony Leary M.D. 09/26/2020 10:20 AM
[2020-09-26 10:29] LABS: Alanine Aminotransferase 32 U/L (12-78); Albumin Level 3.4 gm/dl (3.4-5.0); Aspartate Aminotransferase 25 U/L (15-37); BUN Creatinine Ratio 17.9 (10-20); Blood Urea Nitrogen 13 mg/dl (7-18); Calcium 9.2 mg/dl (8.5-10.1); Carbon Dioxide 26 mmol/L (21-32); Chloride 111 mmol/L (98-107); Est GFR (African American) 92.9; Est GFR (Non-African American) 80.1; Glucose 90 mg/dl (70-99); Magnesium 2.2 mg/dl (1.8-2.4); Potassium 3.9 mmol/L (3.5-5.1); Sodium 142 mmol/L (136-145)
[2020-09-26 10:33] LABS: Alkaline Phosphatase 81 U/L (45-117); Bilirubin,Total 0.5 mg/dl (0.2-1); Globulin 3.6 gm/dl (2.5-4.0); Troponin I < 0.015 ng/ml (0-0.045)
--- NOTE | 2020-09-26 10:55 | CT Scan Report ---
CT SCAN OF THE RIGHT HIP WITHOUT IV CONTRAST CLINICAL HISTORY: Fall with right hip pain. COMPARISON STUDY: Radiographs of the pelvis and right hip dated 09/26/2020. TECHNIQUE: CT scan of the right hip is performed from the bony pelvis to the proximal femur. Images a re reviewed in the axial, sagittal, and coronal planes. IV contrast was not administered for this exa mination. A dose lowering technique was utilized adhering to the principles of ALARA. CT DOSE: 325.84 mGy.cm FINDINGS: The skeletal structures are osteopenic. There is no radiographic evidence of fracture invol ving the right hip or the visualized right hemipelvis. No lytic or blastic lesion is seen. Mild degen erative joint space narrowing seen in the right hip. There is no evidence of avascular necrosis of th e right femoral head. No joint effusion is identified. There is mild generalized atrophy of the regio nal musculature. The overlying soft tissues are normal as imaged. No hematoma is seen. There is ather osclerotic calcification of the right femoral artery. The bladder is normal as visualized. There is n o right pelvic sidewall or inguinal adenopathy. Question a 3.7 cm cystic right adnexal lesion. IMPRESSION: 1. No acute bony abnormality is identified. 2. Question a 3.7 cm cystic lesion in the right adnexa. This is only partially visualized. A pelvic u ltrasound is recommended for further assessment. ACT 112: Negative or not required by law. Electronically signed by: Anthony Leary M.D. 09/26/2020 10:53 AM
[2020-09-26 12:38] LABS: Appearance Urine Clear (Clear); Bilirubin Urine Negative (Negative); Blood Urine Negative (Negative); Color Urine Yellow; Glucose Urine UA Negative (Negative); Ketones Urine Trace (Negative); Leukocyte Esterase Urine Negative (Negative); Nitrite Urine Negative (Negative); Protein Urine Negative (Negative); Specific Gravity Urine 1.017 (1.000-1.030); Urobilinogen Urine Negative (Negative); pH Urine 6.5 (4.5-7.5)
--- NOTE | 2020-09-26 14:03 | Electrocardiogram Report ---
Test Reason : Blood Pressure : / mmHG Vent. Rate : 069 BPM Atrial Rate : 069 BPM P-R Int : 168 ms QRS Dur : 066 ms QT Int : 408 ms P-R-T Axes : 056 027 043 degrees QTc Int : 437 ms Poor data quality, interpretation may be adversely affected Normal sinus rhythm Normal ECG When compared with ECG of 16-APR-2019 19:46, No significant change was found Confirmed by Christofer Tomlinson ([id number]) on 09/26/2020 2:03:23 PM Referred By: Lanny lundy [facility] Confirmed By:Christofer Tomlinson
--- NOTE | 2020-09-26 14:26 | XRay Report ---
RIGHT FEMUR 3 VIEWS CLINICAL HISTORY: Right leg pain. FINDINGS: AP, frog-leg, and lateral views of the right femur are correlated with radiographs and CT o f the right hip performed the same day 09/26/2020. The skeletal structures are osteopenic. There is no radiographic evidence of femoral fracture. The visualized right hemipelvis appears intact. The hip a nd knee joints are grossly maintained. There is advanced atherosclerotic calcification of the right f emoral artery. The overlying soft tissues are normal in appearance. IMPRESSION: There is no radiographic evidence of right femoral fracture. Electronically signed by: Anthony Leary M.D. 09/26/2020 2:25 PM
--- NOTE | 2020-09-26 16:00 | History & Physical Report ---
Date of Service September 26, 2020 Assessment & Plan (1) Facial contusion: Patient was found to have a facial contusion last night at 11:30n in the evening. She was broughtto the ER for possible confusion and not wanting to bear weight on her right hip. Despite swelling and size of hematoma around the.eye, her eye appears to be in good shape. Will admit and order PT/OT Had discussion with son who states that she is near her baseline mentally. (2) Weakness: Unsure if she had a fall, however willl order PTOT Imaging dis not reveal any fractures. (3) Dementia: It appears she has advanced dementia and requires a memory unit. Given this diagnosis, family does not want to have any aggressive treatment. (4) Cyst of ovary, right: Found on CT scan 3.7 cm cystic lesion in the right adnexa Family does not want any further workup on it at this time. History of Present Illness Chief Complaint: FALL Primary Care Provider: Krysta Perez MD 84 yo female who is a poor historian. She does not provide much medical history. She has advanced dementia and is afrom a memory unit at [facility]. It appears overnight she had. a fall as she was found to have a contusion at her right eye. She also reports having pain in her right hip as well as does not want to ambulate. Her son arrived and explains that her dementia has worsened since this past summer. She is a DNR/DNI and family does ot want aggressive measures. Allergies Allergy/AdvReac Type Severity Reaction Status Date / Time No Known Allergies Allergy Verified 09/26/20 13:34 Home Medications Medication Instructions Recorded Confirmed Type alendronate 70 mg PO WK 09/26/20 09/26/20 History cholecalciferol (vitamin D3) 25 mcg PO QAM 09/26/20 09/26/20 History mineral oil-hydrophil petrolat 1 applic TOPICAL TID PRN 09/26/20 09/26/20 History [Aquaphor] naproxen sodium [Aleve] 220 mg PO Q8H PRN 09/26/20 09/26/20 History nitrofurantoin monohyd/m-cryst 100 mg PO BID 09/26/20 09/26/20 History Past Med/Surg History Medical History Dementia Impaired fasting glucose Osteoporosis Surgical History History of cholecystectomy History of cystoscopy History of palate surgery Previous section (10/17/12) Family History Other Cancer Heart disease Hypertension Stroke Social History Smoking Status: Never smoker Hx Alcohol Use: No Hx Substance Use: No Preferred Language: Frisian Communication Ability: Impaired Consultant Nurse Required: No Beliefs That Will Affect Care: None marital status: / Current Living Situation: Long-Term Current Living Situation Comment: [facility] Other Information That Helps Us Care for You: No Feels Safe at Home: Yes Safety Concerns: Feels Safe At This Time Assistive Devices: Denture - Upper, Denture - Lower and Walker Assistive Devices Comment: reading glasses Review of Systems Review of Systems: Unobtainable due to cognitive status Physical Exam Constitutional: WD/WN, vitals as above no acute distress Eyes: Swelling and large ecchymosis around right eye, her right eye globe appears fine and intact. No drainage noted ENMT: external ear and nose normal, oropharynx normal Neck: trachea midline, no thyromegaly Respiratory: normal respiratory effort, lungs clear to auscultation Cardiovascular: RRR, no murmur, no edema Gastrointestinal (Abdomen): normal bowel sounds, soft, nontender, no hepatosplenomegaly Musculoskeletal: no cyanosis or clubbing, extremities motor strength 5/5 Neurologic: PERRL, EOMI, accommodation nl, no face palsy, no dysarthria Psychiatric: Orientation: alert, oriented to person, oriented to place and cooperative; + not oriented to time Lymphatic: no cervical or axillary lymphadenopathy Results & Data Results & Data ([facility]) Vital Signs (Past 12 Hours) Vital Signs Temp Pulse Pulse Resp BP BP Pulse Ox 09/26/20 14:55 55 L 18 161/86 H 97 09/26/20 11:41 65 18 171/76 H 96 09/26/20 09:09 96 09/26/20 09:00 36.3 C L 66 12 155/70 H 95 PG Care Time/CCT Total # of Minutes Spent Total Time Spent with Patient: Total time spent is greater than 50% in coordination of care (as documented) at patient's floor/unit and/or counseling patient: Coding Level of Care Code 67843 Initial Inpt Care Lvl 3 Diagnoses Facial contusion S00.83XA Encounter type: initial encounter Weakness R53.1 Dementia F03.90 Cyst of ovary, right N83.201 Time Spent (min) 50 (1) Facial contusion Encounter type: initial encounter Qualified Code(s): S00.83XA - Contusion of other part of head, initial encounter
[2020-09-26] MEDS ORDERED: NITROFURANTOIN MONOHYDRATE 100 MG CAP PO SCH (21:00)
--- NOTE | 2020-09-27 07:55 | Hospitalist Progress Note ---
Date of Service September 27, 2020 Assessment & Plan (1) Facial contusion: * Patient was found to have a facial contusion last night at 11:30n in the evening at [facility] memory unit. She does not recall fall and this was not witnessed. Despite swelling and size of hematoma around the.eye, her eye appears to be in good shape. * Head CT without acute finding * Face CT without acute fracture, RIGHT frontal and periorbital soft tissue hematoma * Femur Xray without fx, Hip/Pelvis without bony abn * Hip CT without acute bony abnormality but does note 3.7cm cyctic lesion R adenexa and rec pelvic US for further assessment. Per family would not want anything done and will hold off on further imaging * Cervical Spine CT without evidence of fracture or subluxation involving cervical spine. Does note osteopenia and spondylitic changes. * -->On alendronate 70mg weekly and D3 25mcg daily (will continue) * CXR without evidence for pneumonia however did note 1.6cm nodular density projecting over the right lung base. May be artifactual and rec PA/lat * PA/lat with possible 1.5cm RLL nodule. Will obtain non-emergent chest CT for f/u * Patient was brought to the ER d/t confusion and refusing to bear weight on her right hip. 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 Will need CM following for possible rehab prior to d/c back to [facility] * Ordered Tylenol prn pain -- has not required any pain control at this time * Will check ECHO given possible syncope although patient poor historian/dementia * Per son, at baseline mentally (2) Weakness: * Unsure if she had a fall, however will order PT/OT as above * Imaging without fractures as above * UA with trace ketones but had been recently being treated for UTI and completed macrobid last dose last evening (3) Dementia: * It appears she has advanced dementia and requires a memory unit. * Given this diagnosis, family does not want to have any aggressive treatment (4) Cyst of ovary, right: * Found on CT scan * 3.7 cm cystic lesion in the right adnexa * Family does not want any further workup on it at this time. Vit D def/Osteopenia * Continue D3 supplementation * Alendronate weekly DVT * SCDs * Lovenox SQ Dispo: from [facility] memory unit PT/OT consults pending -- ?rehab prior to d/c back to [facility] Admission and Anticipated Discharge Date Admission Date: September 26, 2020 Supervising Physician Co-Signing Physician Notes LAKISHA Supervision Note: I did not personally see or examine the patient today, but I verified all frazier points of LAKISHA Calhoun's assessment and plan with the following exceptions/additions: None Subjective Patient evaluated later this morning. Was combative with staff when getting cleaned up as she did not want to be touched. States minimal discomfort to her right eye but no visual changes. Typically uses a walker at [facility] but states she has some minor pain in her right hip but does not endorse wanting anything for pain at this time. She denies falling out of bed at [facility] and then remembers waking up here in the hospital. She was able to state she was in the hospital and her name but not able to tell me month/season/president or year at this time. Hx dementia and lives at memory unit. Discussed therapy evals to ensure safety at return or to see if she would benefi t from some rehab prior to return. States she has not yet been seen this morning. Reported good appetite --lunch tray delivered and she states she is hungry and did get a florence dinner. She states she likes pasta. No fever, chills, chest pain, shortness of breath, abdominal pain, nausea or vomiting, dysuria. Review of Systems Review of Systems: All systems reviewed & are unremarkable except as noted in HPI & below and Unobtainable due to cognitive status (dementia) Physical Exam Constitutional: WD/WN, vitals as above + frail appearing; no acute distress Eyes: hematoma to RIGHT eye with associated swelling, no evidence for hymphema or shayla abnormality/step off. Pupils equal and reactive. ENMT: external ear and nose normal, oropharynx normal Neck: trachea midline, no thyromegaly Respiratory: normal respiratory effort, lungs clear to auscultation Cardiovascular: RRR, no murmur, no edema Gastrointestinal (Abdomen): normal bowel sounds, soft, nontender, no hepatosplenomegaly Musculoskeletal: no cyanosis or clubbing, extremities motor strength 5/5 Neurologic: PERRL, EOMI, accommodation nl, no face palsy, no dysarthria Psychiatric: Orientation: alert, oriented to person, oriented to place and cooperative; + not oriented to time Lymphatic: no cervical or axillary lymphadenopathy Results & Data Results & Data ([facility]) Vital Signs (Past 12 Hours) Vital Signs Temp Pulse Resp BP BP Pulse Ox 09/27/20 07:20 36.6 C 67 16 134/65 96 09/26/20 22:07 37.1 C 62 20 134/71 94 Laboratory Results 09/27/20 09/27/20 09/26/20 Range/Units 08:15 08:15 15:07 WBC 6.39 (4.8-10.8) K/uL RBC 4.42 (4.2-5.4) M/uL Hgb 14.1 (12.0-16.0) g/dL Hct 41.7 (37-47) % MCV 94.3 (80-100) fL MCH 31.9 (25-34) pg MCHC 33.8 (32-36) g/dL RDW Std Deviation 46.6 H (36.4-46.3) fL RDW Coeff of Sajan 13.5 (11.5-14.5) % Plt Count 194 (130-400) K/uL MPV 10.2 (7.4-10.4) fL Sodium 142 (136-145) mmol/L Potassium 3.9 (3.5-5.1) mmol/L Chloride 112 H (98-107) mmol/L Carbon Dioxide 26 (21-32) mmol/L Anion Gap 4.0 (3-11) BUN 12 (7-18) mg/dl Creatinine 0.73 (0.6-1.2) mg/dl Est Cr Clr Drug Dosing 49.4 ml/min Est GFR ( Amer) 88.3 Est GFR (Non-Af Amer) 76.2 BUN/Creatinine Ratio 15.8 (10-20) Glucose 80 (70-99) mg/dl Calcium 8.8 (8.5-10.1) mg/dl COVID-19 Eval Order SARS-CoV-2, RNA, NAAT NEGATIVE (NEGATIVE) 09/26/20 Range/Units 15:07 WBC (4.8-10.8) K/uL RBC (4.2-5.4) M/uL Hgb (12.0-16.0) g/dL Hct (37-47) % MCV (80-100) fL MCH (25-34) pg MCHC (32-36) g/dL RDW Std Deviation (36.4-46.3) fL RDW Coeff of Sajan (11.5-14.5) % Plt Count (130-400) K/uL MPV (7.4-10.4) fL Sodium (136-145) mmol/L Potassium (3.5-5.1) mmol/L Chloride (98-107) mmol/L Carbon Dioxide (21-32) mmol/L Anion Gap (3-11) BUN (7-18) mg/dl Creatinine (0.6-1.2) mg/dl Est Cr Clr Drug Dosing ml/min Est GFR ( Amer) Est GFR (Non-Af Amer) BUN/Creatinine Ratio (10-20) Glucose (70-99) mg/dl Calcium (8.5-10.1) mg/dl COVID-19 Eval Order Covid19 [facility]Now at[facility] SARS-CoV-2, RNA, NAAT (NEGATIVE) PG Care Time/CCT Total # of Minutes Spent Total Time Spent with Patient: Total time spent is greater than 50% in coordination of care (as documented) at patient's floor/unit and/or counseling patient: Coding Level of Care Code 59311 Subseq Hosp Care Lvl 3 Diagnoses Facial contusion S00.83XA Encounter type: initial encounter Weakness R53.1 Dementia F03.90 Cyst of ovary, right N83.201 (1) Facial contusion Encounter type: initial encounter Qualified Code(s): S00.83XA - Contusion of other part of head, initial encounter
[2020-09-27] MEDS ORDERED: ACETAMINOPHEN 325 MG TAB PO PRN (08:01)
[2020-09-27 08:26] LABS: Hematocrit (blood only) 41.7 % (37-47); Hemoglobin 14.1 g/dL (12.0-16.0); Mean Corpuscular Hemoglobin 31.9 pg (25-34); Mean Corpuscular Hgb Conc 33.8 g/dL (32-36); Mean Corpuscular Volume 94.3 fL (80-100); Mean Platelet Volume 10.2 fL (7.4-10.4); Platelet Count 194 K/uL (130-400); RDW Coefficient of Variation 13.5 % (11.5-14.5); RDW Standard Deviation 46.6 fL (36.4-46.3); Red Blood Count 4.42 M/uL (4.2-5.4); White Blood Count 6.39 K/uL (4.8-10.8)
[2020-09-27 08:55] LABS: BUN Creatinine Ratio 15.8 (10-20); Calcium 8.8 mg/dl (8.5-10.1); Creatinine Clr Calc Pharmacy 49.4 ml/min; Est GFR (African American) 88.3; Est GFR (Non-African American) 76.2; Potassium 3.9 mmol/L (3.5-5.1)
--- NOTE | 2020-09-27 09:22 | XRay Report ---
XR chest 2V PA/lateral CLINICAL HISTORY: f/u 1.6cm R lung nodule COMPARISON STUDY: Chest radiograph September 26, 2020. FINDINGS: Lung volumes are diminished. No pneumothorax or pleural effusion is noted. No consolidation is noted. A possible 1.5 cm right lower lung nodule is noted. This projects over the right fourth ri b. This likely corresponds to the finding on prior chest radiograph. There is no evidence for pulmona ry edema. IMPRESSION: Possible 1.5 cm right lower lung nodule. This may reflect a pulmonary nodule or rib abno rmality. Nonemergent chest CT is recommended. ACT 112: Negative or not required by law. Electronically signed by: Francois Perez M.D. 09/27/2020 9:21 AM
[2020-09-27] MEDS ORDERED: ONDANSETRON INJ 2 MG/ML 2 ML VIAL IV PRN (13:08)
[2020-09-27] MEDS ORDERED: POLYETHYLENE (MIRALAX) 17 GM PACK PO PRN (13:08)
[2020-09-27] MEDS ORDERED: ENOXAPARIN INJ 40 MG/0.4 ML SYR SQ ONE (13:11)
[2020-09-27] MEDS ORDERED: NAPROXEN 250 MG TAB PO PRN (13:27)
[2020-09-27] MEDS ORDERED: EUCERIN CR 120 GM JAR TOP PRN (13:28)
--- NOTE | 2020-09-28 08:39 | CT Scan Report ---
CT chest diagnostic wo con CT DOSE: 347.80 mGy.cm CLINICAL HISTORY: 84 years-old Female with f/u pulmonary nodule. Follow-up study in a patient with p ossible 1.5 cm right lower lobe pulmonary nodule TECHNIQUE: Multiaxial CT images of the chest were performed without contrast. A dose lowering techni que was utilized adhering to the principles of ALARA. COMPARISON: Chest radiographs 09/27/2020 FINDINGS: Study is degraded by respiratory motion artifact. Unremarkable thyroid. There is no adenopa thy. Calcified plaque of the thoracic aorta without aneurysm. 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 Mild cardiomegaly without pericardial effusion. Extensive coronary artery ca lcifications. No pneumothorax or pleural effusion. Intralobular septal thickening with intermixed cecilia undglass densities. Mild dependent bibasilar consolidation. 3 mm nodular opacity of the left lung ape x, image 57 series 4. Possible pulmonary nodule the basal left lower lobe measuring 6 mm on image 155 series 4. No pulmonary nodule identified to correlate with the finding seen on comparison radiograph s. Central airways are patent. Cholecystectomy. There is no acute process of the imaged upper abdomen. Degenerative changes of the s houlders and spine. Chronic left-sided rib fractures. There are healing subacute appearing nondisplac ed fractures noted involving the anterior right fourth and fifth ribs. IMPRESSION: 1. Limited exam secondary to respiratory motion artifact. 2. Healing subacute nondisplaced fractures of the anterolateral right fourth and fifth ribs accounts for the questioned opacity described on comparison radiographs. 3. Possible 6 mm left lower lobe and 4 mm left upper lobe pulmonary nodules. 4. Cardiomegaly with findings suggestive of mild pulmonary edema. 5. Aberrant course of the right subclavian artery. Please refer to below summary of Fleischner criteria recommendations for follow-up of incidental CT n odules (Tila Mccallum, Guidelines for management of small pulmonary nodules detected on CT scans: A sta tement from the Fleischner Society, Radiology 237: [phone].) SOLID NODULES Multiple nodules size: <6 mm * Low risk patients: no routine follow-up * high risk patients: optional CT at 12 months Multiple nodules size: 6-8 mm * Low risk patients: follow-up at 3-6 months, then consider further follow-up at 18-24 months * high risk patients: follow-up at 3-6 months, then at 18-24 months if no change Note: newly detected indeterminate nodule in persons 35 years of age or older. * Low risk patients: minimal or absent history of smoking and/or other known risk factors * high risk patients: history of smoking or of other known risk factors (e.g. first degree relative with lung cancer, or exposure to asbestos, radon, uranium) * if a nodule up to 8 mm is partly solid or is ground glass further follow-up is required after 24 m [facility] to exclude possible slow growing adenocarcinoma ([facility]) ACT 112: Negative or not required by law. Electronically signed by: George Brown M.D. 09/28/2020 8:37 AM
[2020-09-28] MEDS: CHOLECALCIFEROL 1,000 UNITS 25 MCG TAB PO SCH (08:45)
[2020-09-28] MEDS: THIAMINE HCL 100 MG TAB PO SCH (08:45)
[2020-09-28] MEDS: MULTIVITAMIN CHEWABLE TAB PO SCH (08:46)
--- NOTE | 2020-09-28 14:43 | XCELERA ---
[id number]
--- NOTE | 2020-09-28 22:09 | Hospitalist Progress Note ---
Date of Service September 28, 2020 Assessment & Plan (1) Facial contusion: * Patient was found to have a facial contusion last night at 11:30n in the evening at [facility]. She does not recall fall and this was not witnessed. Despite swelling and size of hematoma around the.eye, her eye ap pears to be in good shape. * Head CT without acute finding * Face CT without acute fracture, RIGHT frontal and periorbital soft tissue hematoma * Femur Xray without fx, Hip/Pelvis without bony abn * Hip CT without acute bony abnormality but does note 3.7cm cyctic lesion R adenexa and rec pelvic US for further assessment. Per family would not want anything done and will hold off on further imaging * Cervical Spine CT without evidence of fracture or subluxation involving cervical spine. Does note osteopenia and spondylitic changes. * -->On alendronate 70mg weekly and D3 25mcg daily (will continue) * CXR without evidence for pneumonia however did note 1.6cm nodular density projecting over the right lung base. May be artifactual and rec PA/lat * PA/lat with possible 1.5cm RLL nodule. Will obtain non-emergent chest CT for f/u * Patient was brought to the ER d/t confusion and refusing to bear weight on her right hip. 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 * Ordered Tylenol prn pain -- has not required any pain control at this time * Echo was normal. * Per son, at baseline mentally (2) Weakness: * Unsure if she had a fall, however will order PT/OT as above * Imaging without fractures as above * UA with trace ketones but had been recently being treated for UTI and completed macrobid last dose last evening (3) Dementia: * It appears she has advanced dementia and requires a memory unit. * Given this diagnosis, family does not want to have any aggressive treatment (4) Cyst of ovary, right: * Found on CT scan * 3.7 cm cystic lesion in the right adnexa * Family does not want any further workup on it at this time. Vit D def/Osteopenia * Continue D3 supplementation * Alendronate weekly DVT * SCDs * Lovenox SQ Dispo: from [facility] PT/OT consults pending -- ?rehab prior to d/c back to [facility] Admission and Anticipated Discharge Date Admission Date: September 26, 2020 Subjective Patient has no new complaints at this time. Review of Systems Review of Systems: All systems reviewed & are unremarkable except as noted in HPI & below Physical Exam Constitutional: WD/WN, vitals as above no acute distress ENMT: external ear and nose normal, oropharynx normal Neck: trachea midline, no thyromegaly Respiratory: normal respiratory effort, lungs clear to auscultation Cardiovascular: RRR, no murmur, no edema Gastrointestinal (Abdomen): normal bowel sounds, soft, nontender, no hepatosplenomegaly Musculoskeletal: no cyanosis or clubbing, extremities motor strength 5/5 Neurologic: PERRL, EOMI, accommodation nl, no face palsy, no dysarthria Psychiatric: Orientation: alert, oriented to person, oriented to place and cooperative; + not oriented to time Lymphatic: no cervical or axillary lymphadenopathy Results & Data Results & Data ([facility]) Vital Signs (Past 12 Hours) Vital Signs Temp Pulse Resp BP Pulse Ox 09/28/20 16:56 36.4 C L 60 18 145/72 H 97 PG Care Time/CCT Total # of Minutes Spent Total Time Spent with Patient: Total time spent is greater than 50% in coordination of care (as documented) at patient's floor/unit and/or counseling patient: Coding Level of Care Code 56310 Subseq Hosp Care Lvl 2 Diagnoses Facial contusion S00.83XA Encounter type: initial encounter Weakness R53.1 Dementia F03.90 Cyst of ovary, right N83.201 Time Spent (min) 25 (1) Facial contusion Encounter type: initial encounter Qualified Code(s): S00.83XA - Contusion of other part of head, initial encounter
[2020-09-29] MEDS: CHOLECALCIFEROL 1,000 UNITS 25 MCG TAB PO SCH (10:04)
[2020-09-29] MEDS: MULTIVITAMIN CHEWABLE TAB PO SCH (10:04)
[2020-09-29] MEDS: THIAMINE HCL 100 MG TAB PO SCH (10:04)
--- NOTE | 2020-10-05 17:50 | Discharge Summary ---
Date of Service September 29, 2020 Admission HPI Per Admitting Provider 84 yo female who is a poor historian. She does not provide much medical history. She has advanced dementia and is afrom a memory unit at [facility]. It appears overnight she had. a fall as she was found to have a contusion at her right eye. She also reports having pain in her right hip as well as does not want to ambulate. Her son arrived and explains that her dementia has worsened since this past summer. She is a DNR/DNI and family does ot want aggressive measures. Principal Diagnosis facial contusion Discharge Exam Constitutional: WD/WN, vitals as above no acute distress ENMT: external ear and nose normal, oropharynx normal Neck: trachea midline, no thyromegaly Respiratory: normal respiratory effort, lungs clear to auscultation Cardiovascular: RRR, no murmur, no edema Gastrointestinal (Abdomen): normal bowel sounds, soft, nontender, no hepatosplenomegaly Musculoskeletal: no cyanosis or clubbing, extremities motor strength 5/5 Neurologic: PERRL, EOMI, accommodation nl, no face palsy, no dysarthria Psychiatric: Orientation: alert, oriented to person, oriented to place and cooperative; + not oriented to time Lymphatic: no cervical or axillary lymphadenopathy Discharge Data Allergies Allergy/AdvReac Type Severity Reaction Status Date / Time No Known Allergies Allergy Verified 09/26/20 13:34 Consultations 09/26/20 14:23 ED Decision to Admit Stat Ordered Studies 09/26/20 09:24 CT cervical spine wo con Stat CT facial bones wo con Stat CT head/brain wo con Stat 09/26/20 10:20 CT hip RT wo con Stat 09/28/20 08:30 CT chest diagnostic wo con Routine Hospital Course (1) Facial contusion: * Patient was found to have a facial contusion last night at 11:30n in the evening at [facility]. She does not recall fall and this was not witnessed. Despite swelling and size of hematoma around the.eye, her eye appears to be in good shape. * Head CT without acute finding * Face CT without acute fracture, RIGHT frontal and periorbital soft tissue hematoma * Femur Xray without fx, Hip/Pelvis without bony abn * Hip CT without acute bony abnormality but does note 3.7cm cyctic lesion R adenexa and rec pelvic US for further assessment. Per family would not want anything done and will hold off on further imaging * Cervical Spine CT without evidence of fracture or subluxation involving cervical spine. Does note osteopenia and spondylitic changes. * -->On alendronate 70mg weekly and D3 25mcg daily (will continue) * CXR without evidence for pneumonia however did note 1.6cm nodular density projecting over the right lung base. May be artifactual and rec PA/lat * PA/lat with possible 1.5cm RLL nodule. Will obtain non-emergent chest CT for f/u * Patient was brought to the ER d/t confusion and refusing to bear weight on her right hip. She typically uses a walker at [facility] and is quite active [employer] * PT/OT consulted -- will be discharged back to [facility] at SNF today. * Ordered Tylenol prn pain * Echo was normal. * Per son, at baseline mentally (2) Weakness: * Unsure if she had a fall, however will order PT/OT as above * Imaging without fractures as above * UA with trace ketones but had been recently being treated for UTI and completed macrobid last dose last evening (3) Dementia: * It appears she has advanced dementia and requires a memory unit. * Given this diagnosis, family does not want to have any aggressive treatment (4) Cyst of ovary, right: * Found on CT scan * 3.7 cm cystic lesion in the right adnexa * Family does not want any further workup on it at this time. Vit D def/Osteopenia * Continue D3 supplementation * Alendronate weekly DVT * SCDs * Lovenox SQ Dispo: from [facility] memory unit Total Time Total Time Spent Total Time Spent (In Minutes): 32 Total Time Includes: Examination of the Patient Discharge Plan Discharge Items Patient Disposition: [facility] Reason For Visit: FALL/WEAKNESS Discharge Diagnosis: fall weakness Condition on Discharge: Fair Activity: Resume your previous activity Non-emergency contact: Primary Care Provider Call non-emergency contact if: you have any medication questions Follow-up/Referrals: Krysta Perez MD [Primary Care Provider] - Diet: Regular Diet Texture: Easy to Chew Addtl Attending Provider Instructions: You have been hospitalized for an acute medical problem. During your stay at [facility], we have made an effort to correct the problem that brought you to the hospital while keeping you as comfortable as possible. Medications were used to bring your condition under control and your discharge instructions will include directions for any medications you should take after leaving the hospital. Please make sure you see your Primary Care Provider as part of your follow up plan. followup with PCP in 1-2 weeks. Pending Studies at Discharge: No Stand-Alone Forms: My [facility] Skilled Items Patient informed of condition?: Yes DNR: Yes Discharge Level of Care: Skilled Communicable Disease: No Discharge Prognosis: Stable Lines: None Urinary Catheter: No Medications and DC Order Prescriptions: New acetaminophen 325 mg Tablet 650 mg PO Q4H PRNQty: 15 RF: 0 thiamine HCl (vitamin B1) [Vitamin B-1] 100 mg Tablet 100 mg PO QAM Qty: 30 RF: 0 Flintstones Complete (iron) Tablet,Chewable 1 tab PO QAM Qty: 0 RF: 0 Continued Aquaphor Ointment 1 applic TOPICAL TID PRN (Reason: Skin Irritation) RF: 0 cholecalciferol (vitamin D3) 25 mcg (1,000 unit) Capsule 25 mcg PO QAM RF: 0 naproxen sodium [Aleve] 220 mg Capsule 220 mg PO Q8H PRN (Reason: Pain) RF: 0 alendronate 70 mg tablet 70 mg PO WK RF: 0 Discontinued nitrofurantoin monohyd/m-cryst 100 mg capsule 100 mg PO BID RF: 0 Discharge Orders: Discharge Order (Routine); Ordered 09/29/20 Ordered By: Oswaldo Smith Admission Data Admit Date/Time: 09/26/20 16:19 Attending Provider: Oswaldo Smith Admit Provider: Oswaldo Smith Primary Care Provider: Krysta Perez Other Providers: Oswaldo Smith ; Lanny Woody [place] Other Interventions: Discharge Summary Assessment (RN) Last Done: 09/29/20 11:39 Coding Level of Care Code 44469 OBS Care - Discharge Diagnoses Facial contusion S00.83XA Encounter type: initial encounter Weakness R53.1 Dementia F03.90 Cyst of ovary, right N83.201
== END 2020-09-29 12:00 ==
LOC: ED 08:59 → SUATTDRO 16:19 → 3N 16:19 → INTOOBSV 16:19 → 3N 18:00